=== PATIENT | female | born 1970 | race American Indian/Alaskan Native ===

== ENCOUNTER 2018-12-22 08:35 | Day surgery (SDC) | payer OTHER ==
[2018-12-20 15:39] LABS: Absolute Lymphocytes (CBC) 3.5 K/uL (0.7-4.9); Absolute Monocytes 0.9 K/uL (0.1-1.3); Basophils % 0.7 % (0-1.3); Eosinophils % 1.7 % (0-4.4); Hematocrit 41.9 % (36.0-45.0); Lymphocytes % 36.8 % (15.3-44.8); MPV 7.9 fL (7.6-11.3); Monocytes % 9.1 % (3.3-12.3); RBC Red Blood Cell Count 5.12 M/uL (3.86-4.86)
[2018-12-20 15:52] LABS: Potassium 3.9 mmol/L (3.5-5.1)
--- OUTSIDE RECORDS SUMMARY | 2018-12-22 08:38 | XMS REPORT ---
:1970 Author Organization eClinicalWorks Care Team Providers Name Role Phone Nathan, Na Provider Role Unavailable Allergies, Adverse Reactions, Alerts Substance Reaction Event Type N.K.D.A. Info Not Available Non Drug Allergy Problems Problem Type Condition Code Onset Dates Condition Status Assessment Multiple joint pain M25.50 Active Problem Abdominal mass of other site R19.09 Active Problem Allergic rhinitis J30.9 Active Problem Cough R05 Active Problem Hyperlipidemia E78.5 Active Problem History of colon resection Z90.49 Active Problem Diverticulosis of intestine without K57.90 Active bleeding, unspecified intestinal tract location Problem Obesity E66.9 Active Problem Pneumonia J18.9 Active Assessment Hyperlipidemia E78.5 Active Assessment Allergic rhinitis J30.9 Active Assessment Blood tests for routine general Z00.00 Active physical examination Assessment Diverticulosis of intestine without K57.90 Active bleeding, unspecified intestinal tract location Assessment Screening for breast cancer Z12.31 Active Assessment Family history of rheumatoid Z82.61 Active arthritis Assessment History of colon resection Z90.49 Active Assessment Abdominal mass of other site R19.09 Active Medications Medication Code Code Instructions Start End Status Dosage System Date Date Amoxicillin [facility] [place] 2[place] 14314573526 500 MG Orally Active 1 capsule every 8 hrs Lipitor [facility] [place] 2] 28044793865 20 MG Orally Active 1 tablet Once a day Flonase [facility] [place]NOTE 2] [address]-08 50 MCG/ACT Active 2 spray in Nasally Once a each day nostril Tessalon Perldominguez [facility] [place]NOTE 2] 37866779796 100 MG Orally Active 1 capsule Three times a as needed day Montelukast ND 07505622038 10 MG Orally Apr 01, Active 1 tablet Sodium Once a day 2017 in the evening Flonase ND 66365710596 50 MCG/ACT Apr 01, Active 2 spray in Nasally Once a 2018 each day nostril Results No Known Results Summary Purpose eClinicalWorks Submission
--- OUTSIDE RECORDS SUMMARY | 2018-12-22 08:38 | XMS REPORT ---
:1970 Author Organization [employer]Works Care Team Providers Name Role Phone Matt Brunilda Provider Role Unavailable Allergies, Adverse Reactions, Alerts Substance Reaction Event Type N.K.D.A. Info Not Available Non Drug Allergy Problems Problem Type Condition Code Onset Dates Condition Status Problem Cough R05 Active Problem Hyperlipidemia E78.5 Active Problem Allergic rhinitis J30.9 Active Problem Hypertension, unspecified type I10 Active Problem Adult general medical exam Z00.00 Active Problem Dizzy R42 Active Problem Carpal tunnel syndrome of left G56.02 Active wrist Problem Pneumonia J18.9 Active Problem Routine gynecological examination Z01.419 Active Problem Mixed hyperlipidemia E78.2 Active Assessment Hypertension, unspecified type I10 Active Problem Abdominal mass of other site R19.09 Active Problem Diverticulosis of intestine without K57.90 Active bleeding, unspecified intestinal tract location Assessment Dizzy R42 Active Problem History of colon resection Z90.49 Active Problem Obesity E66.9 Active Medications Medication Code Code Instructions Start End Status Dosage System Date Date Flonase [facility] 59986705575 50 MCG/ACT Apr 01, Active 2 spray in Nasally Once a 2018 each day nostril Montelukast ND 01346301874 10 MG Orally Apr 01, Active 1 tablet Sodium Once a day 2017 in the evening Walter Roberts ND 93398062853 100 MG Orally Active 1 capsule Three times a as needed day Flonase [facility] 01541289419 50 MCG/ACT Active 2 spray in Nasally Once a each day nostril Lipitor ND 02115929661 20 MG Orally Active 1 tablet Once a day Amoxicillin ND 45639906456 500 MG Orally Active 1 capsule every 8 hrs Lisinopril ND 44458113685 10 MG Orally November Active 1 tablet Once a day 2018 Crestor ND 30384203255 20 MG Orally Apr 29, Active 1 tablet Once a day 2017 Results No Known Results Summary Purpose eClinicalWorks Submission
--- OUTSIDE RECORDS SUMMARY | 2018-12-22 08:38 | XMS REPORT ---
:1970 Author Organization [employer]Works Care Team Providers Name Role Phone Nathan, Na Provider Role Unavailable Allergies No Known Allergies Problems Problem Type Condition Code Onset Dates Condition Status Problem Abdominal mass of other site R19.09 Active Problem Allergic rhinitis J30.9 Active Problem Cough R05 Active Problem Hyperlipidemia E78.5 Active Problem History of colon resection Z90.49 Active Problem Diverticulosis of intestine without K57.90 Active bleeding, unspecified intestinal tract location Problem Obesity E66.9 Active Problem Pneumonia J18.9 Active Medications No Known Medications Results No Known Results Summary Purpose eClinicalWorks Submission
--- OUTSIDE RECORDS SUMMARY | 2018-12-22 08:38 | XMS REPORT ---
:1970 Author Organization e[employer]Works Care Team Providers Name Role Phone Bella Avila Provider Role Unavailable Allergies No Known Allergies Problems Problem Type Condition Code Onset Dates Condition Status Problem Cough R05 Active Problem Hyperlipidemia E78.5 Active Problem Allergic rhinitis J30.9 Active Problem Abdominal mass of other site R19.09 Active Problem Diverticulosis of intestine without K57.90 Active bleeding, unspecified intestinal tract location Problem History of colon resection Z90.49 Active Problem Obesity E66.9 Active Problem Hypertension, unspecified type I10 Active Problem Adult general medical exam Z00.00 Active Problem Dizzy R42 Active Problem Carpal tunnel syndrome of left G56.02 Active wrist Problem Pneumonia J18.9 Active Problem Routine gynecological examination Z01.419 Active Problem Mixed hyperlipidemia E78.2 Active Medications No Known Medications Results No Known Results Summary Purpose eClinicalWorks Submission
--- OUTSIDE RECORDS SUMMARY | 2018-12-22 08:38 | XMS REPORT ---
:1970 Author Organization eClinicalWorks Care Team Providers Name Role Phone Nathan, Na Provider Role Unavailable Allergies, Adverse Reactions, Alerts Substance Reaction Event Type N.K.D.A. Info Not Available Non Drug Allergy Problems Problem Type Condition Code Onset Dates Condition Status Problem Allergic rhinitis J30.9 Active Problem Abdominal mass of other site R19.09 Active Problem Hyperlipidemia E78.5 Active Problem Carpal tunnel syndrome of left G56.02 Active wrist Problem Adult general medical exam Z00.00 Active Problem Mixed hyperlipidemia E78.2 Active Problem History of colon resection Z90.49 Active Problem Diverticulosis of intestine without K57.90 Active bleeding, unspecified intestinal tract location Problem Routine gynecological examination Z01.419 Active Problem Pneumonia J18.9 Active Assessment Carpal tunnel syndrome of left G56.02 Active wrist Assessment Mixed hyperlipidemia E78.2 Active Assessment Adult general medical exam Z00.00 Active Assessment Routine gynecological examination Z01.419 Active Problem Obesity E66.9 Active Assessment Multiple joint pain M25.50 Active Problem Cough R05 Active Medications Medication Code Code Instructions Start End Status Dosage System Date Date Amoxicillin ND 25989802183 500 MG Orally Active 1 capsule every 8 hrs Crestor ND 18592546789 20 MG Orally Apr 29, Active 1 tablet Once a day 2017 Montelukast ND 29714283494 10 MG Orally Apr 01, Active 1 tablet Sodium Once a day 2018 in the evening Tessalon Perles ND 39792058150 100 MG Orally Active 1 capsule Three times a as needed day Flonase ND 41169486793 50 MCG/ACT Active 2 spray in Nasally Once a each day nostril Lipitor ND 48117446327 20 MG Orally Active 1 tablet Once a day Flonase ND 89701071710 50 MCG/ACT Apr 01, Active 2 spray in Nasally Once a 2018 each day nostril Results No Known Results Summary Purpose eClinicalWorks Submission
--- OUTSIDE RECORDS SUMMARY | 2018-12-22 08:38 | XMS REPORT ---
:1970 Author Organization eClinicalWorks Care Team Providers Name Role Phone Nathan, Na Provider Role Unavailable Allergies No Known Allergies Problems Problem Type Condition Code Onset Dates Condition Status Problem Allergic rhinitis J30.9 Active Problem Abdominal mass of other site R19.09 Active Problem Hyperlipidemia E78.5 Active Problem Obesity E66.9 Active Problem Cough R05 Active Problem Carpal tunnel syndrome of left G56.02 Active wrist Problem Adult general medical exam Z00.00 Active Problem Mixed hyperlipidemia E78.2 Active Problem History of colon resection Z90.49 Active Problem Diverticulosis of intestine without K57.90 Active bleeding, unspecified intestinal tract location Problem Routine gynecological examination Z01.419 Active Problem Pneumonia J18.9 Active Medications No Known Medications Results No Known Results Summary Purpose eClinicalWorks Submission
--- OUTSIDE RECORDS SUMMARY | 2018-12-22 08:38 | XMS REPORT ---
:1970 [facility] Address [address] [place] [address] Dr. Escobar [address] [place] [address] Care Team Providers Name Role Phone Unavailable Unavailable Unavailable Problems This patient has no known problems. Allergies, Adverse Reactions, Alerts This patient has no known allergies or adverse reactions. Medications This patient has no known medications.
--- OUTSIDE RECORDS SUMMARY | 2018-12-22 08:38 | XMS REPORT ---
:1970 Author Organization eClinicalWorks Care Team Providers Name Role Phone Black Partida Provider Role Unavailable Allergies, Adverse Reactions, Alerts Substance Reaction Event Type N.K.D.A. Info Not Available Non Drug Allergy Problems Problem Type Condition Code Onset Dates Condition Status Problem Hyperlipidemia E78.5 Active Problem Carpal tunnel syndrome of left G56.02 Active wrist Problem Pneumonia J18.9 Active Problem CKD (chronic kidney disease), stage N18.3 Active III Problem Hypertension, unspecified type I10 Active Problem Diverticulitis K57.92 Active Problem Routine gynecological examination Z01.419 Active Problem Mixed hyperlipidemia E78.2 Active Problem Dizzy R42 Active Problem Adult general medical exam Z00.00 Active Assessment Ventral hernia without obstruction K43.9 Active or gangrene Problem History of colon resection Z90.49 Active Problem Obesity E66.9 Active Problem Abdominal mass of other site R19.09 Active Problem Cough R05 Active Problem Diverticulosis of intestine without K57.90 Active bleeding, unspecified intestinal tract location Problem Allergic rhinitis J30.9 Active Medications Medication Code Code Instructions Start End Status Dosage System Date Date Walter Roberts [facility] 36740766115 100 MG Orally Active 1 capsule Three times a as needed day Amoxicillin [facility] 22565087489 500 MG Orally Active 1 capsule every [address] [facility] 93244772628 20 MG Orally Active 1 tablet Once a day Flonase [facility] 03649937517 50 MCG/ACT Active 2 spray in Nasally Once a each day nostril Lisinopril ND 17851451402 10 MG Orally November Active 1 tablet Once a day [address] [facility] 89594123202 20 MG Orally Apr 29, Active 1 tablet Once a day [address] [facility] 22586680341 50 MCG/ACT Active 2 spray in Nasally Once a each day nostril Cipro [facility] 57505120603 500 MG Orally Active 1 tablet every [address] [facility] 36942764946 10 MG Orally Active 1 tablet Sodium Once a day in the evening Metronidazole [facility] 22893132287 500 MG Orally Active 1 tablet Three times a day Zofran [facility] 82622674216 8 MG Orally Active 1 tablet Once a day as needed Meclizine HCl [facility] [address]-33 25 MG Orally Active as directed Results No Known Results Summary Purpose eClinicalWorks Submission
[2018-12-22] MEDS ORDERED: Ringers Lactate 1,000 ML IV ONE ×2 (09:05→12:25)
[2018-12-22] MEDS ORDERED: CEFAZOLIN/SWI 2gm 2 GM/20 ML SYR ONE (09:06)
[2018-12-22] MEDS ORDERED: MIDAZOLAM HCL 2 MG/2 ML INJ ONE ×2 (09:39→13:10)
[2018-12-22] MEDS ORDERED: FENTANYL CITR 100 MCG/2 ML ONE (09:39)
[2018-12-22] MEDS ORDERED: PROPOFOL 200 MG/20 ML VIAL IV ONE (09:39)
[2018-12-22] MEDS ORDERED: LIDOCAINE 2% MPF 5 ML VIAL ONE (09:40)
[2018-12-22] MEDS ORDERED: ROCURONIUM 50 MG/5 ML VIAL IV ONE ×2 (09:40→11:23)
[2018-12-22] MEDS ORDERED: ONDANSETRON 4 MG/2 ML VIAL ONE ×2 (09:41→13:28)
[2018-12-22] MEDS ORDERED: BUPIVACA 0.25%/EPI 0.0005% MDV 50 ML VIAL ONE (10:05)
[2018-12-22] MEDS ORDERED: EPHEDRINE SULF 50 MG/ML VIAL ONE (10:39)
[2018-12-22] MEDS ORDERED: DEXAMETHASONE 10 MG/ML VIAL ONE (10:52)
--- NOTE | 2018-12-22 11:40 | P.OP ---
Preoperative diagnosis: Ventral Abdominal Wall Hernias Postoperative diagnosis: Ventral Abdominal Wall Hernias Primary procedure: Laparoscopic Ventral Hernia Repair with Mesh Secondary procedure: Laparoscopic Adhesiolysis Anesthesia: GETA + Local Estimated blood loss: <10cc Specimen: None Findings: Colon contained within hernia, multiple hernias of midline Complications: None Implants: Bard Ventralite ST mesh with echo position [id number] Transferred to: Recovery Room Condition: Good
[2018-12-22] MEDS ORDERED: NEOSTIGMINE 1 MG/ML -10 ML VIAL ONE (11:45)
[2018-12-22] MEDS ORDERED: GLYCOPYRROLATE 0.2 MG/ML SYR ONE (11:45)
[2018-12-22] MEDS: HYDROMORPHONE HCL 2 MG/ML inj ONE ×4 (11:51→12:30)
[2018-12-22] MEDS: HYDROMORPHONE HCL 1 MG/ML INJ ONE ×2 (12:40→12:50)
[2018-12-22] MEDS: MEPERIDINE HCL 50 MG/ML AMP ONE ×2 (13:30→13:40)
[2018-12-22] MEDS ORDERED: METOCLOPRAMIDE 10 MG/2mL INJ ONE (14:22)
[2018-12-22] MEDS: HYDROCODONE/APAP 7.5/325 MG TAB ONE ×2 (15:32→15:56)
[2018-12-22 17:16] VITALS: BP 119/72; TEMP 98.3; O2SAT 95
--- NOTE | 2018-12-22 20:57 | OP ---
Date of Procedure: 12/22/2018 Surgeon: Black Partida MD, Preoperative Diagnosis: Ventral abdominal wall hernias. Postoperative Diagnosis: Ventral abdominal wall hernias. Procedures Performed: 1.Laparoscopic ventral hernia repair with mesh. 2.Laparoscopic adhesiolysis. Anesthesia: General endotracheal plus local with 0.25% Marcaine. Estimated Blood Loss: 10 cc. Specimen: None. Findings: Contained within the hernia, multiple hernias of the midline. Complications: None. Implants: Bard Ventralight ST mesh with Echo positioning system 15 cm x 20 cm size. Disposition: Transferred to recovery room in good condition. Procedure In Detail: After informed consent was obtained, the patient was brought to the operating r oom, prepped and draped in the usual sterile fashion. After adequate anesthesia was achieved, the ar ea of the right upper quadrant was anesthetized with 0.25% Marcaine, sharply incised. A 5 mm 0-degre e optical trocar was introduced in the abdomen without evidence of complication. Insufflation was ob tained to 15 mmHg at this time. There was no injury to vital structures upon entry into the abdomen. Inspection showed that there was a large portion of the transverse colon in the hernia defect along with significant amount of the omentum stuck to the midline. Additionally, there were multiple adhe sions to the midline as well from various portions of the mesentery of the small bowel as well as ome ntum, but predominantly omentum. Additional trocar site was chosen in the left upper quadrant. This was similarly anesthetized, sharply incised, and a 12 mm trocar was introduced into the abdomen with out evidence of complication. Two additional trocars were placed in the left mid and lower quadrants , these were both 5 mm trocars placed under direct visualization without evidence of complication. T he patient was positioned slightly head down. Graspers and a LigaSure device were used to bluntly di ssect down the adipose tissue from the abdominal wall using both blunt and sharp dissection. In mera tion, the LigaSure device, careful dissection allowed for mobilization of the colon off the hernia de fect from the midline and the colon was returned to the normal anatomic position. We performed lapar oscopic adhesiolysis. After this was performed, the abdominal wall was completely swept clear of all adipose tissue, and there was a small segment of small bowel mesentery, which was stuck to the anter ior bowel wall. This was easily freed down, leaving a clean cleavage plane. The falciform ligament was taken down superiorly for approximately 4-1/2 cm. The mesh was sized appropriately, and a Bard V entralight ST mesh was brought into the lateral 12 mm port. The 15 x 20 mm cm size was found to be p erfect with 5 cm of underlay circumferentially. A separate stab incision was made through the midlin e. The deployment balloon device was deployed at this time and the mesh was positioned appropriately . The SorbaFix fixation system tacks were placed circumferentially around the single crown and the b alloon deployment system was removed through the lateral port and found to be intact. The remainder of the tacks were placed circumferentially in a double crown type fashion placing approximately 60 ab sorbable fixation devices. Good hemostasis was achieved without any additional hemostatic maneuvers and the mesh was found to be in good anatomic position. The abdomen was inspected. Proper hemostasi s was achieved at this time. The 12 mm trocar was then removed. The 12 mm trocar port was closed us ing a Cornelius-Dora suture passer and 0 Vicryl in interrupted fashion with good approximation of ti ssues. The remaining trocars were then inspected and the abdomen completely desufflated under direct visualization without evidence of complication. All trocars removed. All skin incisions were copio usly irrigated and closed with a 4-0 Monocryl in a running fashion. Dermabond placed over the top. The patient tolerated the procedure without evidence of complication, transferred to the PACU in good condition. All counts were correct at the end of the c ase. SADA/VELMA Voice ID: [id number] Report ID: [id number]
== END 2018-12-22 16:51 | disposition home or self-care (01) ==
LOC: OR 08:35
PROVIDERS: ATTEND Surgery
PROC: 0WUF4JZ Supplement Abdominal Wall with Synthetic Substitute, Percutaneous Endoscopic Approach (ICD-10-PCS; principal; 2018-12-22 10:15)
DX: K43.9 Ventral hernia without obstruction or gangrene (principal); K66.0 Peritoneal adhesions (postprocedural) (postinfection); E78.5 Hyperlipidemia, unspecified; E66.9 Obesity, unspecified; Z79.899 Other long term (current) drug therapy; Z68.41 Body mass index [BMI] 40.0-44.9, adult
CPT/HCPCS: 36415; 80051; 82565; 84520; 85025; J0690; J1100; J1170; J2175; J2250; J2405; J2704; J2710; J2765; J3010

== ENCOUNTER 2019-02-01 13:56 | Emergency (ER) | payer OTHER ==
--- OUTSIDE RECORDS SUMMARY | 2019-02-01 13:58 | XMS REPORT ---
[...] End Status Dosage System Date Date Amoxicillin [facility] 48422779006 500 MG Orally Active 1 capsule every 8 hrs Lipitor [facility] 46436191822 20 MG Orally Active 1 tablet Once a day Flonase [facility] [address]-23 50 MCG/ACT Active 2 spray in Nasally Once a each day nostril Tessalon Perldominguez [facility] 00984812055 100 MG Orally Active 1 capsule Three times a as needed day Montelukast ND 84221972895 10 MG Orally Apr 01, Active 1 tablet Sodium Once a day 2017 in the evening Flonase ND 06993813489 50 MCG/ACT Apr 01, Active 2 spray in Nasally Once a 2018 each day nostril Results No Known Results Summary Purpose eClinicalWorks Submission
--- OUTSIDE RECORDS SUMMARY | 2019-02-01 13:59 | XMS REPORT ---
[...] Status Dosage System Date Date Walter Roberts [facility] 64111361478 100 MG Orally Active 1 capsule Three times a as needed day Amoxicillin [facility] 71392597715 500 MG Orally Active 1 capsule every 8 hrs Lipitor [facility] 77686246935 20 MG Orally Active 1 tablet Once a day Flonase [facility] 54170213775 50 MCG/ACT Active 2 spray in Nasally Once a each day nostril Lisinopril ND 48418848465 10 MG Orally November Active 1 tablet Once a day 2018 Crestor [facility] 74720650643 20 MG Orally Apr 29, Active 1 tablet Once a day 2017 Flonase [facility] 35335933792 50 MCG/ACT Active 2 spray in Nasally Once a each day nostril Cipro [facility] 55120721069 500 MG Orally Active 1 tablet every 12 hrs Montelukast [facility] 00920573895 10 MG Orally Active 1 tablet Sodium Once a day in the evening Metronidazole [facility] 70363129647 500 MG Orally Active 1 tablet Three times a day Zofran [facility] 68853431199 8 MG Orally Active 1 tablet Once a day as needed Meclizine HCl [facility] [address]-80 25 MG Orally Active as directed Results No Known Results Summary Purpose eClinicalWorks Submission
--- OUTSIDE RECORDS SUMMARY | 2019-02-01 13:59 | XMS REPORT ---
[...] Status Dosage System Date Date Amoxicillin ND 69993228183 500 MG Orally Active 1 capsule every 8 hrs Crestor ND 86422599094 20 MG Orally Apr 29, Active 1 tablet Once a day 2017 Montelukast ND 17615366519 10 MG Orally Apr 01, Active 1 tablet Sodium Once a day 2018 in the evening Tessalon Perles ND 68619588895 100 MG Orally Active 1 capsule Three times a as needed day Flonase ND 26921526053 50 MCG/ACT Active 2 spray in Nasally Once a each day nostril Lipitor ND 43411470811 20 MG Orally Active 1 tablet Once a day Flonase ND 27950239363 50 MCG/ACT Apr 01, Active 2 spray in Nasally Once a 2018 each day nostril Results No Known Results Summary Purpose eClinicalWorks Submission
--- OUTSIDE RECORDS SUMMARY | 2019-02-01 13:59 | XMS REPORT ---
[...] End Status Dosage System Date Date Flonase [facility] 38449881737 50 MCG/ACT Apr 01, Active 2 spray in Nasally Once a 2018 each day nostril Montelukast ND 03544522031 10 MG Orally Apr 01, Active 1 tablet Sodium Once a day 2017 in the evening Walter Roberts ND 92560786015 100 MG Orally Active 1 capsule Three times a as needed day Flonase [facility] 39260887076 50 MCG/ACT Active 2 spray in Nasally Once a each day nostril Lipitor ND 03816114477 20 MG Orally Active 1 tablet Once a day Amoxicillin ND 40424236656 500 MG Orally Active 1 capsule every 8 hrs Lisinopril ND 37460710815 10 MG Orally November Active 1 tablet Once a day 2018 Crestor ND 22511550667 20 MG Orally Apr 29, Active 1 tablet Once a day 2017 Results No Known Results Summary Purpose eClinicalWorks Submission
--- OUTSIDE RECORDS SUMMARY | 2019-02-01 13:59 | XMS REPORT ---
:1970 [facility] Address [address] [place] [address] Dr. Escobar [address] [place] [address] Care Team Providers Name Role Phone Unavailable Unavailable Unavailable Problems This patient has no known problems. Allergies, Adverse Reactions, Alerts This patient has no known allergies or adverse reactions. Medications This patient has no known medications.
--- OUTSIDE RECORDS SUMMARY | 2019-02-01 14:00 | XMS REPORT ---
:1970 Author Organization eClinicalWorks Care Team Providers Name Role Phone Black Partida Provider Role Unavailable Allergies, Adverse Reactions, Alerts Substance Reaction Event Type N.K.D.A. Info Not Available Non Drug Allergy Problems Problem Type Condition Code Onset Dates Condition Status Problem Pneumonia J18.9 Active Problem Mixed hyperlipidemia E78.2 Active Problem Carpal tunnel syndrome of left G56.02 Active wrist Problem Ventral hernia without obstruction K43.9 Active or gangrene Problem CKD (chronic kidney disease), stage N18.3 Active III Problem Diverticulitis K57.92 Active Problem Adult general medical exam Z00.00 Active Problem Routine gynecological examination Z01.419 Active Problem Hypertension, unspecified type I10 Active Problem Dizzy R42 Active Problem Abdominal mass of other site R19.09 Active Assessment Follow up Z09 Active Problem Obesity E66.9 Active Problem Cough R05 Active Problem Diverticulosis of intestine without K57.90 Active bleeding, unspecified intestinal tract location Problem Allergic rhinitis J30.9 Active Problem History of colon resection Z90.49 Active Problem Hyperlipidemia E78.5 Active Medications Medication Code Code Instructions Start End Status Dosage System Date Date Tylenol # 3 NDC 0 300/30mg PO January 05January Active one to two every 6 hrs 2019 09, tabs as 2019 needed Tessalon Perles [facility] 83625611064 100 MG Orally Active 1 capsule Three times a as needed day Montelukast [facility] 72752843104 10 MG Orally Active 1 tablet in Sodium Once a day the evening Flonase [facility] 70151294371 50 MCG/ACT Active 2 spray in Nasally Once a each day nostril Zofran [facility] 13296342621 8 MG Orally Active 1 tablet as Once a day needed Flonase [facility] 20113321949 50 MCG/ACT Active 2 spray in Nasally Once a each day nostril Lipitor ND 66358720552 20 MG Orally Active 1 tablet Once a day Cipro [facility] 64590869206 500 MG Orally Active 1 tablet every 12 hrs Metronidazole ND 10777117850 500 MG Orally Active 1 tablet Three times a day Lisinopril [facility] 57177393921 10 MG Orally November Active 1 tablet Once a day 2018 Crestor [facility] 56490389418 20 MG Orally Apr 29, Active 1 tablet Once a day 2017 Meclizine HCl [facility] 42468869066 25 MG Orally Active as directed Amoxicillin [facility] 73190312630 500 MG Orally Active 1 capsule every 8 hrs Results No Known Results Summary Purpose eClinicalWorks Submission
[2019-02-01] MEDS ORDERED: MECLIZINE HCL 12.5 MG TAB ONE (15:15)
--- NOTE | 2019-02-01 16:17 | EDPHYS ---
Physician Documentation [facility] Name: Tete Hinkle Age: 48 yrs Sex: Female : 1970 Arrival Date: 02/01/2019 Time: 13:58 Bed 14 Private MD: Shila Nathan ED Physician Arturo Santiago HPI: 02/01 15:57 This 48 yrs old Female presents to ER via Ambulatory with complaints of jr8 Dizziness. 15:57 The patient presents with vertigo. Onset: The symptoms/episode began/occurred jr8 gradually, 2 week(s) ago. Context: occurred at an unknown location, occurred while the patient was standing, walking, just prior to the episode the patient experienced no apparent symptoms. Modifying factors: The symptoms are alleviated by nothing, the symptoms are aggravated by movement of head, standing up, changing position. Associated signs and symptoms: The patient has no apparent associated signs or symptoms. Severity of symptoms: At their worst the symptoms were mild in the emergency department the symptoms are unchanged. Patient's baseline: Neuro: alert and fully oriented, Motor: no deficits, Ambulation: walks without assistance, Speech: normal. The patient has experienced similar episodes in the past, a few times. The patient has not recently seen a physician. Patient stated that she has had this two other times. Once was only about 2 months ago. Stated that she went to [facility] at that time and was diagnosed with Vertigo. Having similar symptoms again . 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 - Social history:: Smoking status: Patient/guardian denies using tobacco. - Ebola Screening: : No symptoms or risks identified at this time. ROS: 16:15 Eyes: Negative for injury, pain, redness, and discharge, ENT: Negative for injury, jr8 pain, and discharge, Neck: Negative for injury, pain, and swelling, Cardiovascular: Negative for chest pain, palpitations, and edema, Respiratory: Negative for shortness of breath, cough, wheezing, and pleuritic chest pain, Abdomen/GI: Negative for abdominal pain, nausea, vomiting, diarrhea, and constipation, Back: Negative for injury and pain, MS/Extremity: Negative for injury and deformity, Skin: Negative for injury, rash, and discoloration. 16:15 Neuro: Positive for dizziness. Exam: 16:15 Eyes: Pupils equal round and reactive to light, extra-ocular motions intact. Lids and jr8 lashes normal. Conjunctiva and sclera are non-icteric and not injected. Cornea within normal limits. Periorbital areas with no swelling, redness, or edema. ENT: Nares patent. No nasal discharge, no septal abnormalities noted. Tympanic membranes are normal and external auditory canals are clear. Oropharynx with no redness, swelling, or masses, exudates, or evidence of obstruction, uvula midline. Mucous membranes moist. Neck: Trachea midline, no thyromegaly or masses palpated, and no cervical lymphadenopathy. Supple, full range of motion without nuchal rigidity, or vertebral point tenderness. No Meningismus. Cardiovascular: Regular rate and rhythm with a normal S1 and S2. No gallops, murmurs, or rubs. Normal PMI, no JVD. No pulse deficits. Respiratory: Lungs have equal breath sounds bilaterally, clear to auscultation and percussion. No rales, rhonchi or wheezes noted. No increased work of breathing, no retractions or nasal flaring. Abdomen/GI: Soft, non-tender, with normal bowel sounds. No distension or tympany. No guarding or rebound. No evidence of tenderness throughout. Back: No spinal tenderness. No costovertebral tenderness. Full range of motion. Skin: Warm, dry with normal turgor. Normal color with no rashes, no lesions, and no evidence of cellulitis. MS/ Extremity: Pulses equal, no cyanosis. Neurovascular intact. Full, normal range of motion. Neuro: Awake and alert, GCS 15, oriented to person, place, time, and situation. Cranial nerves II-XII grossly intact. Motor strength 5/5 in all extremities. Sensory grossly intact. Cerebellar exam normal. Normal gait. Vital Signs: 14:14 BP 164 / 82; Pulse 97; Resp 16; Temp 98.4; Pulse Ox 95% on R/A; Weight 104.33 kg; aj Height 5 ft. 3 in. (160.02 cm); 14:14 Body Mass Index 40.74 (104.33 kg, 160.02 cm) NIH Stroke Scale Scores: 16:15 NIHSS Score: 0 jr8 MDM: 14:36 Patient medically screened. jr8 16:15 Data reviewed: vital signs, nurses notes. Data interpreted: Pulse oximetry: on room air jr8 is 95 %. Interpretation: normal. Counseling: I had a detailed discussion with the patient and/or guardian regarding: the historical points, exam findings, and any diagnostic results supporting the discharge/admit diagnosis, the need for outpatient follow up, a family practitioner, to return to the emergency department if symptoms worsen or persist or if there are any questions or concerns that arise at home. Response to treatment: the patient's symptoms have mildly improved after treatment. Administered Medications: 15:15 Drug: Meclizine 25 mg Route: PO; ph 16:25 Follow up: Response: No adverse reaction ph Disposition: 17:14 Co-signature as Attending Physician, Arturo Santiago MD I agree with the assessment and kdr plan of care. Disposition: 02/01/19 16:16 Discharged to Home. Impression: Vertigo. - Condition is Stable. - Discharge Instructions: Vertigo. - Prescriptions for Meclizine 25 mg Oral Tablet - take 1 tablet by ORAL route every 8 hours As needed; 30 tablet. Valium 2 mg Oral Tablet - take 1 tablet by ORAL route every 8 hours As needed; 20 tablet. - Work release form, Medication Reconciliation Form, Thank You Letter, Antibiotic Education, Prescription Opioid Use form. - Follow up: Shila Nathan MD; When: 2 - 3 days; Reason: Recheck today's complaints, Continuance of care, Re-evaluation by your physician. - Problem is new. - Symptoms have improved. NIH Stroke Scale - NIH Stroke Score Date: 02/01/2019 Time: 16:15 Total Score = 0 1a. Level of Consciousness (LOC) - 0(Alert) 1b. Level of Consciousness (LOC) (Year \T\ Age) - 0(Both) 1c. LOC Commands (Open \T\ Closes Eyes/Outcomes Specialist) - 0(Both) 2. Best Gaze (Lateral Gaze Paresis) - 0(Normal) 3. Visual Field Loss - 0(No visual loss) 4. Facial Palsy - 0(Normal) 5a. Left Arm: Motor (10-second hold) - 0(No drift) 5b. Right Arm: Motor (10-second hold) - 0(No drift) 6a. Left Leg: Motor (5-second hold - always test supine) - 0(No drift) 6b. Right Leg: Motor (5-second hold - always test supine) - 0(No drift) 7. Limb Ataxia (finger/nose \T\ heel/sawyer - test with eyes open) - 0(Absent) 8. Sensory Loss (pinprick arms/legs/face) - 0(Normal) 9. Best Language: Aphasia (description/naming/reading) - 0(No aphasia) 10. Dysarthria (speech clarity - read or repeat words) - 0(Normal) 11. Extinction and Inattention (visual/tactile/auditory/spatial/personal) - 0(No abnormality) Initials: jr8 Signatures: Jesusita Gayle RN RN aj Arturo Santiago MD MD kdr Roszak, Josh, PA PA jr8 Tammi Javed RN RN ph Corrections: (The following items were deleted from the chart) 16:44 16:16 02/01/2019 16:16 Discharged to Home. Impression: Vertigo. Condition is ph Stable. Forms are Medication Reconciliation Form, Thank You Letter, Antibiotic Education, Prescription Opioid Use. Follow up: Shila Nathan; When: 2 - 3 days; Reason: Recheck today's complaints, Continuance of care, Re-evaluation by your physician. Problem is new. Symptoms have improved. jr8
--- NOTE | 2019-02-01 16:17 | ER ---
Nurse's Notes [facility] Name: Tete Hinkle Age: 48 yrs Sex: Female : 1970 Arrival Date: 02/01/2019 Time: 13:58 Bed 14 Private MD: Shila Nathan Diagnosis: Vertigo Presentation: 02/01 14:13 Presenting complaint: Patient states: Reports dizziness when moving head from side to aj side and up and down for 3 weeks. Reports her PCP has no appointments available. Care prior to arrival: None. 14:13 Acuity: DEANDRA 4 aj 15:54 Transition of care: patient was not received from another setting of care. Onset of ph symptoms was February 01, 2019. Risk Assessment: Do you want to hurt yourself or someone else? Patient reports no desire to harm self or others. Initial Sepsis Screen: Does the patient meet any 2 criteria? No. Patient's initial sepsis screen is negative. Does the patient have a suspected source of infection? No. Patient's initial sepsis screen is negative. 15:54 Method Of Arrival: Ambulatory ph Triage Assessment: 14:14 General: Appears in no apparent distress. comfortable, Behavior is calm, cooperative, aj appropriate for age. Pain: Denies pain. Neuro: Gait is steady, Reports dizziness. 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 - Social history:: Smoking status: Patient/guardian denies using tobacco. - Ebola Screening: : No symptoms or risks identified at this time. Screenin:15 Patient has been NPO before screening. The patient is alert, able to follow commands. ph The patient does not exhibit slurred or garbled speech The patient is not exhibiting difficulty speaking. The patient does not exhibit difficulty understanding words. The patient is able to swallow own secretions with no drooling or need for suction. Patient tolerated one teaspoon of water. No drooling, immediate coughing, gurgling, or clearing of the throat was noted. The patient tolerated 90mL of water. No drooling, immediate coughing, gurgling, or clearing of the throat was noted. The patient passed the bedside swallow screening. Oral medications may be given as ordered. Contact Physician for further diet orders. 15:53 Abuse screen: Denies threats or abuse. Denies injuries from another. Nutritional ph screening: No deficits noted. Tuberculosis screening: No symptoms or risk factors identified. Fall Risk None identified. Assessment: 15:00 General: Appears in no apparent distress. comfortable, well groomed, Behavior is calm, ph cooperative, appropriate for age, Denies fever, feeling ill. Pain: Denies pain. Neuro: Level of Consciousness is awake, alert, obeys commands, Oriented to person, place, time, situation, Heel Boom Operator are equal bilaterally Moves all extremities. Full function Speech is normal, Facial symmetry appears normal, Facial symmetry: tongue is midline, Pupils are PERRLA, Reports dizziness, x 3 weeks Denies weakness blurred vision difficulty swallowing, headache. Cardiovascular: Reports lightheadedness, Denies nausea, Capillary refill < 3 seconds in bilateral fingers Patient's skin is warm and dry. Respiratory: Airway is patent Respiratory effort is even, unlabored, Respiratory pattern is regular, symmetrical. GI: No signs and/or symptoms were reported involving the gastrointestinal system. Derm: Skin is intact, is healthy with good turgor, Skin is pink, warm \T\ dry. Musculoskeletal: Circulation, motion, and sensation intact. Range of motion: intact in all extremities. 16:30 Reassessment: Patient appears in no apparent distress at this time. Patient and/or ph family updated on plan of care and expected duration. Pain level reassessed. Patient is alert, oriented x 3, equal unlabored respirations, skin warm/dry/pink. Patient states symptoms have improved. Vital Signs: 14:14 BP 164 / 82; Pulse 97; Resp 16; Temp 98.4; Pulse Ox 95% on R/A; Weight 104.33 kg; aj Height 5 ft. 3 in. (160.02 cm); 14:14 Body Mass Index 40.74 (104.33 kg, 160.02 cm) aj NIH Stroke Scale Scores: 16:15 NIHSS Score: 0 jr8 ED Course: 13:58 Patient arrived in ED. rg4 13:59 Shila Nathan MD is Private Physician. rg4 14:14 Triage completed. aj 14:14 Arm band placed on right wrist. Patient placed in an exam room. aj 14:17 Tammi Javed RN is Primary Nurse. ph 14:19 Del Garza PA is PHCP. jr8 14:19 Arturo Santiago MD is Attending Physician. jr8 15:54 Patient has correct armband on for positive identification. Placed in gown. Bed in low ph position. Call light in reach. Side rails up X 1. Pulse ox on. NIBP on. Door closed. Noise minimized. Warm blanket given. Head of bed elevated. 15:55 No provider procedures requiring assistance completed. ph 16:16 Shila Nathan MD is Referral Physician. jr8 16:43 Patient did not have IV access during this emergency room visit. ph Administered Medications: 15:15 Drug: Meclizine 25 mg Route: PO; ph 16:25 Follow up: Response: No adverse reaction ph Outcome: 16:16 Discharge ordered by . jr8 16:42 Discharged to home ambulatory. ph 16:42 Condition: good 16:42 Discharge instructions given to patient, Instructed on discharge instructions, follow up and referral plans. medication usage, Demonstrated understanding of instructions, follow-up care, medications, Prescriptions given X 2. 16:44 Patient left the ED. ph NIH Stroke Scale - NIH Stroke Score Date: 02/01/2019 Time: 16:15 Total Score = 0 1a. Level of Consciousness (LOC) - 0(Alert) 1b. Level of Consciousness (LOC) (Year \T\ Age) - 0(Both) 1c. LOC Commands (Open \T\ Closes Eyes/Supply Analyst) - 0(Both) 2. Best Gaze (Lateral Gaze Paresis) - 0(Normal) 3. Visual Field Loss - 0(No visual loss) 4. Facial Palsy - 0(Normal) 5a. Left Arm: Motor (10-second hold) - 0(No drift) 5b. Right Arm: Motor (10-second hold) - 0(No drift) 6a. Left Leg: Motor (5-second hold - always test supine) - 0(No drift) 6b. Right Leg: Motor (5-second hold - always test supine) - 0(No drift) 7. Limb Ataxia (finger/nose \T\ heel/sawyer - test with eyes open) - 0(Absent) 8. Sensory Loss (pinprick arms/legs/face) - 0(Normal) 9. Best Language: Aphasia (description/naming/reading) - 0(No aphasia) 10. Dysarthria (speech clarity - read or repeat words) - 0(Normal) 11. Extinction and Inattention (visual/tactile/auditory/spatial/personal) - 0(No abnormality) Initials: jrLala Signatures: Jesusita Gayle RN RN Del Jeter PA PA jr8 Tammi Javed RN RN Iglesia, Roya rg4
[2019-02-01 17:19] VITALS: BP 164/82; TEMP 98.4; O2SAT 95
== END 2019-02-01 16:44 | disposition home or self-care (01) ==
LOC: ER 13:56
DX: R42 Dizziness and giddiness (principal)
CPT/HCPCS: 99283

== ENCOUNTER 2019-11-20 00:04 | Emergency (ER) | payer OTHER ==
--- OUTSIDE RECORDS SUMMARY | 2019-11-20 00:06 | XMS REPORT ---
:1970 Author Organization [facility] t Address [address] [place] [address] Dr. Escobar [address] [place] [id number] Care Team Providers Name Role Phone Unavailable Unavailable Unavailable Problems This patient has no known problems. Allergies, Adverse Reactions, Alerts This patient has no known allergies or adverse reactions. Medications This patient has no known medications.
--- OUTSIDE RECORDS SUMMARY | 2019-11-20 00:07 | XMS REPORT ---
:1970 Author Organization [employer] Care Team Providers Name Role Phone Nathan, Na Provider Role Unavailable Allergies, Adverse Reactions, Alerts Substance Reaction Event Type N.K.D.A. Info Not Available Non Drug Allergy Problems Problem Type Condition Code Onset Dates Condition Statu s Assessment Vitamin D deficiency E55.9 Active Assessment Elevated alkaline phosphatase level R74.8 Active Assessment Stressful life event affecting Z63.79 Active family Assessment Anxiety F41.9 Active Assessment Allergic rhinitis J30.9 Active Assessment Familial hypercholesterolemia E78.01 Active Problem Adult general medical exam Z00.00 A ctive Assessment Hypertension, unspecified type I10 Active Problem Dizzy R42 Active Problem Hypertension, unspecified type I10 Active Problem Diverticulitis K57.92 Active Problem CKD (chronic kidney disease), stage N18.3 Active III Problem Familial hypercholesterolemia E78.01 Active Problem Stressful life event affecting Z63.79 Active family Problem History of colon resection Z90.49 A ctive Problem Diverticulosis of intestine without K57.90 Active bleeding, unspecified intestinal tract location Problem Vitamin D deficiency E55.9 Active Problem Abdominal mass of other site R19.09 Active Problem Impacted cerumen, right ear H61.21 Active Problem Ventral hernia without obstruction K43.9 Active or gangrene Problem Anxiety F41.9 Active Problem Benign paroxysmal positional H81.11 Active vertigo of right ear Problem Allergic rhinitis J30.9 Active Problem Hyperlipidemia E78.5 Active Problem Obesity E66.9 Active Problem Cough R05 Active Problem Carpal tunnel syndrome of left G56.02 Active wrist Problem Mixed hyperlipidemia E78.2 Active Problem Pneumonia J18.9 Active Problem Routine gynecological examination Z01.419 Active Medications Medication Code Code Instructions Start End Status Dosage System Date Date Zofran [facility] 78751981108 8 MG Orally Active 1 tablet as Once a day needed Metronidazole ND 79419356306 500 MG Orally Active 1 tablet Three times a day Amoxicillin ND 81775874283 500 MG Orally Active 1 capsule every 8 hrs Meclizine HCl [facility] 39064783873 25 MG Orally Active a s directed Once a day Metoprolol ND 06253354640 100 MG Orally Active 1 t ablet Tartrate Twice a day with food Crestor ND 07389941478 20 MG Orally Mar 31, Active 1 table t Once a day 2018 Losartan ND 47211585326 50 MG Orally Mar 31, Active 1 tabl et Potassium Once a day 2018 Flonase ND 44752492368 50 MCG/ACT Active 2 spray i n Nasally Once a each day nostril Cetirizine HCl ND 05001622173 10 MG Orally Active 1 tablet Once a day Cipro ND 04860370157 500 MG Orally Active 1 tabl et every 12 hrs Crestor ND 85416544002 20 MG Orally Apr 29, Active 1 tabl et Once a day 2017 Tessalon Perles ND 38896031001 100 MG Orally Active 1 capsule Three times a as needed day Benzonatate ND 59781551943 100 MG Orally March 01Mar 31, Active 1 capsule two times a day 2018 2018 as neede d prn cough Flonase ND 78172934826 50 MCG/ACT Active 2 spray i n Nasally Once a each day nostril Montelukast ND 10151395640 10 MG Orally Active 1 t ablet in Sodium Once a day the evening Lipitor ND 23763556333 20 MG Orally Active 1 table t Once a day Valium ND 54167638267 2 MG Orally Active 1 tablet as Once a day needed Results No Known Results Summary Purpose [employer] Submission
--- OUTSIDE RECORDS SUMMARY | 2019-11-20 00:08 | XMS REPORT ---
:1970 Author Organization [employer] Care Team Providers Name Role Phone Nathan, Na Provider Role Unavailable Allergies, Adverse Reactions, Alerts Substance Reaction Event Type N.K.D.A. Info Not Available Non Drug Allergy Problems Problem Type Condition Code Onset Dates Condition Statu s Assessment Allergic rhinitis J30.9 Active Assessment CKD (chronic kidney disease), stage N18.3 Active III Assessment Moderate persistent asthma without J45.40 Active complication Assessment Familial hypercholesterolemia E78.01 Active Assessment Hypertension, unspecified type I10 Active Assessment Low back pain M54.5 Active Problem Diverticulosis of intestine without K57.90 Active bleeding, unspecified intestinal tract location Problem Abdominal mass of other site R19.09 Active Problem History of colon resection Z90.49 A ctive Problem Ventral hernia without obstruction K43.9 Active or gangrene Problem CKD (chronic kidney disease), stage N18.3 Active III Problem Obesity E66.9 Active Problem Benign paroxysmal positional H81.11 Active vertigo of right ear Problem Anxiety F41.9 Active Problem Impacted cerumen, right ear H61.21 Active Problem Post menopausal syndrome N95.1 Act luis Problem Moderate persistent asthma without J45.40 Active complication Problem Hyperlipidemia E78.5 Active Problem Allergic rhinitis J30.9 Active Problem Other chronic pain G89.29 Active Problem Cough R05 Active Problem Familial hypercholesterolemia E78.01 Active Problem Vitamin D deficiency E55.9 Active Problem Mild intermittent asthma, J45.20 Ac tive unspecified whether complicated Problem Stressful life event affecting Z63.79 Active family Assessment Other chronic pain G89.29 Active Problem Carpal tunnel syndrome of left G56.02 Active wrist Assessment Post menopausal syndrome N95.1 Act luis Problem Mixed hyperlipidemia E78.2 Active Problem Pneumonia J18.9 Active Assessment Needs flu shot Z23 Active Problem Routine gynecological examination Z01.419 Active Problem Dizzy R42 Active Problem Diverticulitis K57.92 Active Problem Adult general medical exam Z00.00 A ctive Problem Hypertension, unspecified type I10 Active Medications Medication Code Code Instructions Start End Status Dosage System Date Date Crestor [facility] 79839913601 20 MG Orally Apr 29, Active 1 tabl et Once a day 2018 Tessalon Perles ND 83494537542 100 MG Orally Active 1 capsule Three times a as needed day Montelukast ND 39595368710 10 MG Orally Active 1 t ablet in Sodium Once a day the evening Amoxicillin ND 41239720259 500 MG Orally Active 1 capsule every 8 hrs Metronidazole ND 81349549800 500 MG Orally Active 1 tablet Three times a day Duloxetine HCl ND 09714949441 30 MG Orally Jun 02, Active 1 capsule Once a day 2018 Valium ND 23445010275 2 MG Orally Active 1 tablet as Once a day needed Flonase ND 28196673515 50 MCG/ACT Active 2 spray i n Nasally Once a each day nostril Cetirizine HCl [facility] 23387374706 10 MG Orally Active 1 tablet Once a day Lipitor ND 48820618635 20 MG Orally Active 1 table t Once a day Zofran [facility] 34091429823 8 MG Orally Active 1 tablet as Once a day needed Tizanidine HCl [facility] 27628967492 2 MG Orally at Jun 02, Jul 01, Active 1 tablet as bedtime 2018 2018 needed Crestor [facility] 17736002770 20 MG Orally Active 1 table t Once a day Meclizine HCl [facility] 77582172369 25 MG Orally Active a s directed Once a day Flonase ND 99912467770 50 MCG/ACT Active 2 spray i n Nasally Once a each day nostril Losartan ND 57257496250 50 MG Orally Active 1 tabl et Potassium Once a day Cipro [facility] 87946655755 500 MG Orally Active 1 tabl et every 12 hrs Spiriva Respimat ND 73973577734 1.25 MCG/ACT Jun 02, Sep 30, Active 2 puffs Inhalation Once 2018 2019 a day ProAir [facility] 15971158337 108 (90 Base) Jun 02, Active 2 puff s RespiClick MCG/ACT 2019 Inhalation every 6 hours prn sob Metoprolol ND 57240785481 100 MG Orally Active 1 t ablet Tartrate Twice a day with food Results No Known Results Immunizations Vaccine Administration Date Flucelvax - multidose vial Jun 02, 2019 Summary Purpose [employer] Submission
--- OUTSIDE RECORDS SUMMARY | 2019-11-20 00:08 | XMS REPORT ---
:1970 Author Organization [employer] Care Team Providers Name Role Phone Nathan, Na Provider Role Unavailable Allergies No Known Allergies Problems Problem Type Condition Code Onset Dates Condition Statu s Assessment Vitamin D deficiency E55.9 Active Assessment Familial hypercholesterolemia E78.01 Active Assessment Elevated alkaline phosphatase level R74.8 Active Assessment Allergic rhinitis J30.9 Active Assessment Hypertension, unspecified type I10 Active Problem Diverticulosis of intestine without K57.90 [...] life event affecting Z63.79 Active family Problem Carpal tunnel syndrome of left G56.02 Active wrist Problem Mixed hyperlipidemia E78.2 Active Problem Pneumonia J18.9 Active Problem Routine gynecological examination Z01.419 Active Problem Dizzy R42 Active Problem Diverticulitis K57.92 Active Problem Adult general medical exam Z00.00 A ctive Problem Hypertension, unspecified type I10 Active Medications No Known Medications Results No Known Results Summary Purpose [employer] Submission
--- OUTSIDE RECORDS SUMMARY | 2019-11-20 00:09 | XMS REPORT ---
:1970 Author Organization eClinicalWorks Care Team Providers Name Role Phone Nathan, Na Provider Role Unavailable Allergies, Adverse Reactions, Alerts Substance Reaction Event Type N.K.D.A. Info Not Available Non Drug Allergy Problems Problem Type Condition Code Onset Dates Condition Statu s Assessment Allergic rhinitis J30.9 Active Assessment Post menopausal syndrome N95.1 Act luis Assessment Familial hypercholesterolemia E78.01 Active Assessment Hypertension, unspecified type I10 Active Assessment Adult general medical exam Z00.00 A ctive Problem History of colon resection Z90.49 A ctive Problem Diverticulosis of intestine without K57.90 Active bleeding, unspecified intestinal tract location Problem Abdominal mass of other site R19.09 Active Problem Obesity E66.9 Active Problem CKD (chronic kidney disease), stage N18.3 Active III Problem Benign paroxysmal positional H81.11 Active vertigo of right ear Problem Cough R05 Active Problem Impacted cerumen, right ear H61.21 Active Problem Familial hypercholesterolemia E78.01 Active Problem Anxiety F41.9 Active Problem Moderate persistent asthma without J45.40 Active complication Problem Post menopausal syndrome N95.1 Act luis Problem Pneumonia J18.9 Active Problem Hyperlipidemia E78.5 Active Problem Chronic fatigue R53.82 Active Problem Allergic rhinitis J30.9 Active Problem Vitamin D deficiency E55.9 Active Problem Stressful life event affecting Z63.79 Active family Problem Mild intermittent asthma, J45.20 Ac tive unspecified whether complicated Problem Other chronic pain G89.29 Active Assessment Elevated fasting blood sugar R73.01 Active Problem Mixed hyperlipidemia E78.2 Active Assessment Chronic fatigue R53.82 Active Problem Adult general medical exam Z00.00 A ctive Problem Routine gynecological examination Z01.419 Active Problem Carpal tunnel syndrome of left G56.02 Active wrist Problem Diverticulitis K57.92 Active Problem Ventral hernia without obstruction K43.9 Active or gangrene Problem Hypertension, unspecified type I10 Active Problem Dizzy R42 Active Medications Medication Code Code Instructions Start End Status Dosage System Date Date Montelukast [facility] 51711325455 10 MG Orally Active 1 t ablet in Sodium Once a day the evening ProAir [facility] 93834366222 108 (90 Base) Jun 02, Active 2 puff s RespiClick MCG/ACT 2019 Inhalation every 6 hours prn sob Crestor ND 58460214996 20 MG Orally Active 1 table t Once a day Amoxicillin ND 78368653216 500 MG Orally Active 1 capsule every 8 hrs Cipro ND 78226057502 500 MG Orally Active 1 tabl et every 12 hrs Metoprolol ND 25674446316 100 MG Orally Active 1 t ablet Tartrate Twice a day with food Spiriva Respimat ND 06960640895 1.25 MCG/ACT Jun 02, Sep 30, Active 2 puffs Inhalation Once 2018 2019 a day Zofran ND 24863216811 8 MG Orally Active 1 tablet as Once a day needed Tessalon Perles ND 94248382367 100 MG Orally Active 1 capsule Three times a as needed day Meclizine HCl ND 93088668942 25 MG Orally Active a s directed Once a day Metronidazole ND 92097493183 500 MG Orally Active 1 tablet Three times a day Losartan ND 87666164069 50 MG Orally Active 1 tabl et Potassium Once a day Cetirizine HCl ND 14805485632 10 MG Orally Active 1 tablet Once a day Crestor [facility] 05270439569 20 MG Orally Active 1 table t Once a day Flonase ND 86508334259 50 MCG/ACT Active 2 spray i n Nasally Once a each day nostril Flonase ND 13598415557 50 MCG/ACT Active 2 spray i n Nasally Once a each day nostril Valium ND 42400137189 2 MG Orally Active 1 tablet as Once a day needed Duloxetine HCl ND 04405786938 60 MG Orally Active 1 capsule Once a day Tizanidine HCl ND 68222242948 2 MG Orally at Jun 02, Jul 01, Active 1 tablet as bedtime 2018 2018 needed Lipitor ND 09297994753 20 MG Orally Active 1 table t Once a day Results No Known Results Summary Purpose eClinicalWorks Submission
--- OUTSIDE RECORDS SUMMARY | 2019-11-20 00:10 | XMS REPORT ---
:1970 Author Organization eClinicalWorks Care Team Providers Name Role Phone Nathan, Na Provider Role Unavailable Allergies, Adverse Reactions, Alerts Substance Reaction Event Type N.K.D.A. Info Not Available Non Drug Allergy Problems Problem Type Condition Code Onset Dates Condition Statu s Assessment Hypertension, unspecified type I10 Active Assessment Post menopausal syndrome N95.1 Act luis Assessment Chest pain, atypical R07.89 Active Assessment Allergic rhinitis J30.9 Active Assessment Dizziness R42 Active Problem History of colon resection [...] complicated Problem Other chronic pain G89.29 Active Problem Mixed hyperlipidemia E78.2 Active Problem Adult general medical exam Z00.00 A ctive Problem Routine gynecological examination Z01.419 Active Problem Carpal tunnel syndrome of left G56.02 Active wrist Problem Diverticulitis K57.92 Active Problem Ventral hernia without obstruction K43.9 Active or gangrene Problem Hypertension, unspecified type I10 Active Problem Dizzy R42 Active Medications Medication Code Code Instructions Start End Status Dosage System Date Date Metoprolol [facility] 90398405301 100 MG Orally Active 1 t ablet Tartrate Twice a day with food Lipitor [facility] 22718318771 20 MG Orally Active 1 table t Once a day Meclizine HCl ND 15940757070 25 MG Orally Active a s directed Once a day Crestor ND 35540696908 20 MG Orally Active 1 table t Once a day Montelukast ND 30712409250 10 MG Orally Active 1 t ablet in Sodium Once a day the evening Losartan ND 85186871977 50 MG Orally Active 1 tabl et Potassium Once a day Amoxicillin ND 70745840200 500 MG Orally Active 1 capsule every 8 hrs Flonase ND 91643771724 50 MCG/ACT Active 2 spray i n Nasally Once a each day nostril Tessalon Perles ND 33255288012 100 MG Orally Active 1 capsule Three times a as needed day Cipro [facility] 85415454079 500 MG Orally Active 1 tabl et every 12 hrs Flonase ND 81297314905 50 MCG/ACT Active 2 spray i n Nasally Once a each day nostril Crestor [facility] 11536356319 20 MG Orally Active 1 table t Once a day Cetirizine HCl [facility] 43040215583 10 MG Orally Active 1 tablet Once a day Duloxetine HCl [facility] 59652973942 60 MG Orally Active 2 capsule Once a day Spiriva Respimat ND 81392804695 1.25 MCG/ACT Jun 02, Sep 30, Active 2 puffs Inhalation Once 2018 2019 a day Metronidazole ND 36281913880 500 MG Orally Active 1 tablet Three times a day Zofran [facility] 08878268717 8 MG Orally Active 1 tablet as Once a day needed Valium ND 72835142385 2 MG Orally Active 1 tablet as Once a day needed ProAir [facility] 50687713590 108 (90 Base) Jun 02, Active 2 puff s RespiClick MCG/ACT 2019 Inhalation every 6 hours prn sob Results No Known Results Summary Purpose eClinicalWorks Submission
--- OUTSIDE RECORDS SUMMARY | 2019-11-20 00:10 | XMS REPORT ---
:1970 Author Organization eClinicalWorks Care Team Providers Name Role Phone Nathan, Na Provider Role Unavailable Allergies No Known Allergies Problems Problem Type Condition Code Onset Dates Condition Statu s Problem History of colon resection Z90.49 A [...] I10 Active Problem Dizzy R42 Active Medications No Known Medications Results No Known Results Summary Purpose eClinicalWorks Submission
[2019-11-20 00:23] LABS: Lymphocytes % 37.4 % (15.3-44.8)
[2019-11-20] MEDS ORDERED: MORPHINE 4 MG/ML SYR ONE ×2 (00:25→02:59)
[2019-11-20] MEDS ORDERED: NA CHLORIDE 0.9% 1,000 ML ONE (00:25)
[2019-11-20 00:28] LABS: Absolute Lymphocytes (CBC) 5.1 K/uL (0.7-4.9); Basophils % 0.7 % (0-1.3); MPV 7.9 fL (7.6-11.3); RBC Red Blood Cell Count 4.84 M/uL (3.86-4.86)
[2019-11-20 00:49] LABS: ALT/SGPT 33 U/L (12-78); AST/SGOT 20 U/L (15-37); Albumin 3.4 g/dL (3.4-5.0); Alkaline Phosphatase 115 U/L (45-117); BUN Blood Urea Nitrogen 22 mg/dL (7-18); Bicarbonate 26 mmol/L (21-32); Bilirubin Direct < 0.1 mg/dL (0-0.2); Bilirubin Total 0.2 mg/dL (0.2-1.0); Glucose Level 124 mg/dL (74-106); Lipase 169 U/L (73-393); Potassium 3.7 mmol/L (3.5-5.1); Protein, Total 7.4 g/dL (6.4-8.2); Sodium Level 140 mmol/L (136-145)
[2019-11-20 02:14] LABS: Urine Blood NEGATIVE (NEG); Urine Glucose NEGATIVE (NEG); Urine Protein 2+ (NEG); Urine Specific Gravity >1.030 (1.005-1.030)
[2019-11-20 02:32] LABS: Calcium Oxalate Crystals- Ur FEW (NONE SEEN); Urine Bacteria 20-50 /HPF (<20); Urine Culture Reflex Order REFLEXED; Urine Mucus 2+ /HPF (NONE SEEN); Urine RBC NONE SEEN /HPF (NONE SEEN)
[2019-11-20 02:33] LABS: Urine Other Components MODERATE (NONE SEEN)
--- NOTE | 2019-11-20 04:36 | ER ---
Nurse's Notes [facility] Name: Tete Hinkle Age: 48 yrs Sex: Female : 1970 Arrival Date: 11/20/2019 Time: 00:06 Bed 8 Private MD: Diagnosis: Abdominal pain. Diarrhea. Leukocytosis Presentation: 11/19 00:06 Chief complaint: EMS states: Called for patient with sudden onset lower abdominal pain, lp1 diarrhea with x4 in the last hour; Hx of diverticulitis, colon resection; States previous similar symptoms, but diarrhea is worse; given medications with some relief. Coronavirus screen: Patient denies a cough. Patient denies shortness of breath or difficulty breathing. Patient denies measured and/or subjective temperature greater than 100.4F prior to today's visit. Patient denies travel on a cruise ship or to a country the [facility] currently lists as an affected area. Patient denies contact with known and/or suspected case of COVID-19. Ebola Screen: No symptoms or risks identified at this time. Initial Sepsis Screen: Does the patient meet any 2 criteria?. Risk Assessment: Do you want to hurt yourself or someone else? Patient reports no desire to harm self or others. Onset of symptoms was November 19, 2019 at 23:00. Care prior to arrival: Medication(s) given: Fentanyl 100 mcg IV, Zofran 4 mg IV IV initiated. 20 GA, in the right antecubital area, Glucose check: 139. 00:06 Method Of Arrival: EMS: [facility] lp1 00:06 Acuity: DEANDRA 3 lp1 00:10 Initial Sepsis Screen: Does the patient have a suspected source of infection? Yes: sg Acute abdominal pain. RN RECOVERY: 00:12 LMP N/A - Post-menopause lp1 Historical: - Allergies: 00:12 NKDA; lp1 - Home Meds: 00:12 Zyrtec Oral [Active]; Metoprolol Tartrate Oral [Active]; losartan oral oral [Active]; lp1 rosuvastatin oral oral [Active]; - PMHx: 00:12 Diabetes - NIDDM; Diverticulitis; Hypertension; Hyperlipidemia; Asthma; lp1 - PSHx: 00:12 colon resection; Thyroidectomy; Hernia repair; Appendectomy; lp1 - Immunization history:: Adult Immunizations up to date. - Social history:: Smoking status: Patient denies any tobacco usage or history of. Screenin:13 Abuse screen: Denies threats or abuse. Denies injuries from another. Nutritional lp1 screening: No deficits noted. Tuberculosis screening: No symptoms or risk factors identified. Assessment: 00:10 General: Appears uncomfortable, ill, Behavior is calm, cooperative. Pain: Complains of sg pain in suprapubic area, right lower quadrant and left lower quadrant Quality of pain is described as aching, sharp. 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 Cardiovascular: Capillary refill is brisk in bilateral fingers Patient's skin is warm and dry. Chest pain is denied. Respiratory: Airway is patent Respiratory effort is even, unlabored, Respiratory pattern is regular, symmetrical. GI: Abdomen is round non-distended, Bowel sounds present X 4 quads. hyperactive in left lower quadrant Reports lower abdominal pain, diarrhea, nausea. : No signs and/or symptoms were reported regarding the genitourinary system. EENT: No signs and/or symptoms were reported regarding the EENT system. Derm: Skin is intact, is healthy with good turgor, Skin is dry, Skin is normal, Skin temperature is warm. Musculoskeletal: Circulation, motion, and sensation intact. Range of motion: intact in all extremities. 00:17 Reassessment: Patient appears in no apparent distress at this time. sg 01:00 Reassessment: Patient appears in no apparent distress at this time. Patient and/or sg family updated on plan of care and expected duration. Pain level reassessed. Patient is alert, oriented x 3, equal unlabored respirations, skin warm/dry/pink. Patient states symptoms have not improved. 02:00 Reassessment: Patient appears in no apparent distress at this time. Patient and/or sg family updated on plan of care and expected duration. Pain level reassessed. lab results reported, pt stated understanding, awaiting orders for CT scan, NILA erazo notified. 03:00 Reassessment: Patient appears in no apparent distress at this time. Patient is alert, sg oriented x 3, equal unlabored respirations, skin warm/dry/pink. Patient states symptoms have not improved. 04:10 Reassessment: pt requesting pain medication at this time, ERP notified, awaiting ct sg scan results, pt stated understanding. 04:34 Reassessment: Patient appears in no apparent distress at this time. at bedside sg updating pt on POC and results of CT scan, pt to follow up with GI/PCP upon discharge for continuance of care, pt to be given one dose of abx here and a prescription to go home with, pt stated understanding, pt to be discharge to home with family. 05:00 Reassessment: a hand written prescription was written by the ERP for Cipro 500 sg mg dispense 10 tabs. Vital Signs: 00:06 Weight 108.86 kg (R); Height 5 ft. 3 in. (160.02 cm); Pain 8/10; lp1 00:10 BP 134 / 55; Pulse 50; Resp 18; Temp 97.6; Pulse Ox 98% on R/A; Pain 10/10; sg 00:50 BP 129 / 68; Pulse 55; Resp 16; Pulse Ox 98% on R/A; sg 02:00 BP 136 / 73; Pulse 53 MON; Resp 16; Pulse Ox 96% on R/A; sg 03:00 BP 142 / 86; Pulse 60; Resp 18; Pulse Ox 96% on R/A; sg 04:00 BP 183 / 82; Pulse 55; Resp 16; Pulse Ox 96% on R/A; sg 05:00 BP 176 / 72; Pulse 60; Resp 18; Temp 97.6; Pulse Ox 98% on R/A; Pain 10/10; sg 00:06 Body Mass Index 42.51 (108.86 kg, 160.02 cm) lp1 ED Course: 00:06 Patient arrived in ED. ds1 00:06 Fortino Manzano NP is PHCP. pm1 00:06 Papo Wilkes MD is Attending Physician. pm1 00:10 Triage completed. lp1 00:10 Initial lab(s) drawn, by me, sent to lab. Maintain EMS IV. Dressing intact. Site clean sg \T\ dry. Gauge \T\ site: 20 G RAC. IV is patent, is intact, with fluids infusing freely, with good blood return. 00:10 Patient has correct armband on for positive identification. Bed in low position. Call sg light in reach. Pulse ox on. NIBP on. Warm blanket given. Head of bed elevated. 00:10 Arm band placed on. sg 00:16 Yahir Burns, RN is Primary Nurse. sg 01:48 Awaiting radiology results. sg 03:45 CT Abd/Pelvis - IV Contrast Only In Process Unspecified. EDMS 04:38 No provider procedures requiring assistance completed. IV discontinued, intact, sg bleeding controlled, No redness/swelling at site. Pressure dressing applied. 04:42 Awaiting transportation. sg Administered Medications: 00:17 Drug: morphine 4 mg Route: IVP; Site: right antecubital; sg 01:00 Follow up: Response: No adverse reaction; Pain is decreased sg 00:17 Drug: NS 0.9% 1000 ml Route: IV; Rate: 1000 ml; Site: right antecubital; sg 02:54 Drug: morphine 4 mg Route: IVP; Site: right antecubital; ea 04:00 Follow up: Response: No adverse reaction; Pain is unchanged, physician notified sg 04:33 Drug: Rocephin 1 grams Route: IV; Rate: calculated rate; Site: right antecubital; ea Outcome: 04:35 Discharge ordered by MD. marshall 04:42 Discharged to home ambulatory, with family. sg 04:42 Condition: good 04:42 Discharge instructions given to patient, Instructed on discharge instructions, follow up and referral plans. safety practices, Demonstrated understanding of instructions, follow-up care, medications, Prescriptions given X 1. 05:08 Patient left the ED. sg Signatures: Dispatcher [employer] EDUT Yahir Burns RN RN sg Lam, Pin, MD MD Rebecca Aguirre ds1 Mary Chandler RN RN lp1 Fortino Manzano NP [employer]GE LEAD TEACHER pm1 Bety Riojas RN RN ea Corrections: (The following items were deleted from the chart) 04:05 04:00 BP 142 / 86; Pulse 60bpm; Resp 18bpm; Pulse Ox 96% RA; sg sg 05:12 04:42 Discharge instructions given to patient, Instructed on discharge instructions, sg follow up and referral plans. safety practices, Demonstrated understanding of instructions, follow-up care, medications, Prescriptions given X 2, sg
--- NOTE | 2019-11-20 04:36 | EDPHYS ---
Physician Documentation [facility] Name: Tete Hinkle Age: 48 yrs Sex: Female : 1970 Arrival Date: 11/20/2019 Time: 00:06 Bed 8 Private MD: ED Physician Papo Wilkes HPI: 11/19 00:16 This 48 yrs old Female presents to ER via EMS with complaints of pm1 Abdominal Pain. 00:16 The patient presents with abdominal pain in the upper abdomen. Onset: The pm1 symptoms/episode began/occurred 1 hour(s) ago. The symptoms do not radiate. Associated signs and symptoms: Pertinent positives: diarrhea, nausea, x 4, Pertinent negatives: chest pain, fever, shortness of breath, vomiting. The symptoms are described as crampy. Modifying factors: The symptoms are alleviated by medication, fentanyl, given in route by EMS. the symptoms are aggravated by nothing. Severity of pain: in the emergency department the pain has improved is a 8 / 10. The patient has experienced similar episodes in the past, a few times. 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 - Social history:: Smoking status: Patient denies any tobacco usage or history of. ROS: 00:16 Constitutional: Negative for fever, chills, and weight loss, Cardiovascular: Negative pm1 for chest pain, palpitations, and edema, Respiratory: Negative for shortness of breath, cough, wheezing, and pleuritic chest pain. 00:16 Back: Negative for injury and pain, MS/Extremity: Negative for injury and deformity, Skin: Negative for injury, rash, and discoloration. 00:16 Abdomen/GI: Positive for abdominal pain, nausea, diarrhea, Negative for vomiting. 00:16 Neuro: Negative for headache, weakness, numbness, tingling, and seizure. pm1 Exam: 00:16 Constitutional: This is a well developed, well nourished patient who is awake, alert, pm1 and in no acute distress. Head/Face: Normocephalic, atraumatic. Chest/axilla: Normal chest wall appearance and motion. Nontender with no deformity. No lesions are appreciated. 00:16 Back: No spinal tenderness. No costovertebral tenderness. Full range of motion. Skin: Warm, dry with normal turgor. Normal color with no rashes, no lesions, and no evidence of cellulitis. MS/ Extremity: Pulses equal, no cyanosis. Neurovascular intact. Full, normal range of motion. 00:16 Cardiovascular: Exam negative for acute changes, Rate: normal, Pulses: no pulse deficits are appreciated. 00:16 Respiratory: Exam negative for acute changes, respiratory distress, shortness of breath. 00:16 Abdomen/GI: Inspection: obese 00:16 Neuro: Exam negative for acute changes, Orientation: is normal, Mentation: is normal, Motor: is normal, moves all fours. Vital Signs: 00:06 Weight 108.86 kg (R); Height 5 ft. 3 in. (160.02 cm); Pain 8/10; lp1 00:10 BP 134 / 55; Pulse 50; Resp 18; Temp 97.6; Pulse Ox 98% on R/A; Pain 10/10; sg 00:50 BP 129 / 68; Pulse 55; Resp 16; Pulse Ox 98% on R/A; sg 02:00 BP 136 / 73; Pulse 53 MON; Resp 16; Pulse Ox 96% on R/A; sg 03:00 BP 142 / 86; Pulse 60; Resp 18; Pulse Ox 96% on R/A; sg 04:00 BP 183 / 82; Pulse 55; Resp 16; Pulse Ox 96% on R/A; sg 05:00 BP 176 / 72; Pulse 60; Resp 18; Temp 97.6; Pulse Ox 98% on R/A; Pain 10/10; sg 00:06 Body Mass Index 42.51 (108.86 kg, 160.02 cm) lp1 MDM: 00:06 Patient medically screened. pm1 01:27 Data reviewed: vital signs. Data interpreted: Pulse oximetry: on room air is 98 %. pm1 Interpretation: normal. 11/19 00:07 Order name: Basic Metabolic Panel; Complete Time: 01:04 pm1 11/19 00:07 Order name: CBC with Diff; Complete Time: 00:46 pm1 11/19 00:07 Order name: Creatinine for Radiology; Complete Time: 00:48 pm1 11/19 00:07 Order name: Hepatic Function; Complete Time: 01:04 pm1 11/19 00:07 Order name: Lipase; Complete Time: 01:04 pm1 11/19 00:08 Order name: Urine Microscopic Only; Complete Time: 02:51 pm1 11/19 02:13 Order name: Urine Dipstick--Ancillary (enter results); Complete Time: 02:15 sg 11/19 02:13 Order name: Urine --Ancillary (enter results); Complete Time: 02:15 sg 11/19 02:34 Order name: Urine Culture EDCO 11/19 02:52 Order name: CT Abd/Pelvis - IV Contrast Only pm1 11/19 00:07 Order name: IV Saline Lock; Complete Time: 00:16 pm1 11/19 00:07 Order name: Labs collected and sent; Complete Time: 00:16 pm1 11/19 00:08 Order name: Urine Dipstick-Ancillary (obtain specimen); Complete Time: 02:11 pm1 11/19 00:08 Order name: Urine Test (obtain specimen); Complete Time: 02:11 pm1 Administered Medications: 00:17 Drug: morphine 4 mg Route: IVP; Site: right antecubital; sg 01:00 Follow up: Response: No adverse reaction; Pain is decreased sg 00:17 Drug: NS 0.9% 1000 ml Route: IV; Rate: 1000 ml; Site: right antecubital; sg 02:54 Drug: morphine 4 mg Route: IVP; Site: right antecubital; ea 04:00 Follow up: Response: No adverse reaction; Pain is unchanged, physician notified sg 04:33 Drug: Rocephin 1 grams Route: IV; Rate: calculated rate; Site: right antecubital; ea Disposition: 04:32 Co-signature as Attending Physician, Papo Wilkes MD. pkl Disposition: 11/20/19 04:35 Discharged to Home. Impression: Abdominal pain. Diarrhea. Leukocytosis . - Condition is Stable. - Work release form, Medication Reconciliation Form, Thank You Letter, Antibiotic Education, Prescription Opioid Use form. - Follow up: Private Physician; When: 1 - 2 days; Reason: Re-evaluation by your physician. - Problem is new. - Symptoms have improved. Signatures: Dispatcher [employer] Yahir Faulkner RN RN Papo Pineda MD MD pkl Pena, Laura RN RN lp1 Fortino Manzano, PLATFORM ARCHITECT PLATFORM ARCHITECT pm1 Bety Riojas RN RN ea Corrections: (The following items were deleted from the chart) 05:08 04:35 11/20/2019 04:35 Discharged to Home. Impression: Abdominal pain. Diarrhea. sg Leukocytosis . Condition is Stable. Forms are Medication Reconciliation Form, Thank You Letter, Antibiotic Education, Prescription Opioid Use. Follow up: Private Physician; When: 1 - 2 days; Reason: Re-evaluation by your physician. Problem is new. Symptoms have improved. pkl
[2019-11-20] MEDS ORDERED: CEFTRIAXONE/SWI 1gm 1 GM/10 ML SYR ONE (04:37)
[2019-11-20 05:30] VITALS: TEMP 97.6
[2019-11-20 05:33] VITALS: O2SAT 96
[2019-11-20 05:36] VITALS: BP 183/82
--- NOTE | 2019-11-20 12:36 | RAD REPORT ---
Pain. EXAM DESCRIPTION: CT - Abdomen Pelvis W Contrast - 11/20/2019 6:29 am CLINICAL HISTORY: The patient is 48 years old and is Female; ABD PAIN TECHNIQUE: Axial computed tomography images of the abdomen and pelvis with intravenous contrast. S agittal and coronal reformatted images were created and reviewed. This CT exam was performed using one or more of the following dose reduction techniques: automated exposure control, adjustment of t he mA and/or kV according to patient size, and/or use of iterative reconstruction technique. COMPARISON: CT of the abdomen and pelvis December 09, 2018. FINDINGS: LUNG BASES: Unremarkable. No mass. No consolidation. ABDOMEN: LIVER: Unremarkable. No mass. GALLBLADDER AND BILE DUCTS: The gallbladder is distended. PANCREAS: No ductal dilation. No mass. SPLEEN: Unremarkable. ADRENALS: Unremarkable. No mass. KIDNEYS AND URETERS: Unremarkable. The kidneys enhance symmetrically. No obstructing renal or ure teral calculus is seen. No hydronephrosis or hydroureter. No perinephric fluid or stranding. STOMACH AND BOWEL: The stomach is normally distended. The small bowel is normal in caliber. Post surgical change of the the distal descending/sigmoid colon is present. At the site of anastomosis, th ere is a large amount of stool which appears to be impacted with minimal surrounding inflammation. Th e remainder of the colon is normal in caliber with minimal stool throughout. PELVIS: APPENDIX: The appendix is surgically absent. BLADDER: The bladder is nearly empty. REPRODUCTIVE: Unremarkable as visualized. ABDOMEN and PELVIS: INTRAPERITONEAL SPACE: Unremarkable. No free air. No significant fluid collection. BONES/JOINTS: No acute fracture. SOFT TISSUES: The soft tissues are normal. VASCULATURE: Unremarkable. No abdominal aortic aneurysm. LYMPH NODES: Unremarkable. No enlarged lymph nodes. IMPRESSION: Postsurgical change at the level of the distal descending/sigmoid colon. There is an imp acted stool ball within this region with mild surrounding inflammation. There is no evidence of bowel obstruction however. Electronically signed by: Betsy Yip MD 11/20/2019 3:54 AM CDT Due to temporary technical issues with the PACS/Fluency reporting system, reports are being signed by the in house radiologist as a courtesy to ensure prompt reporting. The interpreting radiologist is f ully responsible for the content of the report.
== END 2019-11-20 05:08 | disposition home or self-care (01) ==
LOC: ER 00:04
DX: R19.7 Diarrhea, unspecified (principal); D72.829 Elevated white blood cell count, unspecified; I10 Essential (primary) hypertension; E11.9 Type 2 diabetes mellitus without complications; E78.5 Hyperlipidemia, unspecified; J45.909 Unspecified asthma, uncomplicated
CPT/HCPCS: 87088; 85025; 87086; 80048; 36415; 81025; 80076; 83690; 74177; Q9967; J0696; J7030; 81003; 81015

== ENCOUNTER 2020-09-02 11:26 | Emergency (ER) | payer OTHER ==
--- OUTSIDE RECORDS SUMMARY | 2020-09-02 11:44 | XMS REPORT | Continuity of Care Document ---
:1970 Author Organization [facility] t Address [address] [place] [address] Care Team Providers Name Role Phone Unavailable Unavailable Unavailable Problems This patient has no known problems. Allergies, Adverse Reactions, Alerts This patient has no known allergies or adverse reactions. Medications Ordered Filled Start Stop Current Ordering Indication Dosage Frequency Signature Comments Components Source Medication Medication Date Date Medication? Clinician (SIG) Name Name Albuterol Albuterol Yes Chuy [address] [facility] Sulfate HFA Sulfate HFA 7-14 [facility] ProAir ProAir 2018-08 Yes Chuy [address] [facility] RespiClick RespiClick 0-25 Thomas Brigette [facility] - [facility] Losartan Losartan Yes Chuy [address] [facility] Potassium Potassium 8-23 [facility] Valium Valium Yes Chuy [address] [facility] 7-09 [facility] Crestor Crestor Yes Chuy [address] 9[facility]21 [facility] Flonase Flonase Yes Chuy [address] [facility] 8-24 [facility] each [facility] nostril [facility] Metronidazo Metronidazo Yes Chuy [address] [facility] Zofran Zofran Yes [facility] [address] [facility] as needed [facility] Clinics Meclizine Meclizine Yes Chuy as [facility] HCl HCl Thomas directed [facility] ent Clinics Duloxetine Duloxetine Yes Chuy [address] [facility] HCl HCl Thomas [facility] ent [facility] Cetirizine Cetirizine Yes Chuy [address] [facility] HCl HCl Thomas [facility] ent Clinics Montelukast Montelukast Yes Chuy [address] [facility] Sodium Sodium Thomas in the [facility] - evening [facility] ent Clinics Metoprolol Metoprolol Yes Chuy [address] [facility] Tartrate Tartrate Thomas with food L [facility] ent [facility] Immunizations Ordered Filled Immunization Date Status Comments Sour e Immunization Name Name Flucgregoriavax - Flucelvax - 2019-06-[address] [facility] - multidose vial multidose vial 00:00:00 [facility] Outpatient Clinics Procedures This patient has no known procedures. Encounters Start End Encounter Admission Attending Care Care Encounter Source Date/Time Date/Time Type Type Clinicians Facility Department ID 2020-05-31 2020-05-31 Outpatient [facility] [id number] [facility]00 [facility] ent Clinics 2020-03-11 2020-03-11 Outpatient Miguel [facility] [id number] [facility] 15:43:00 15:43:00 t [facility] Family Medicine l Medicine Outpati ent Clinics 2020-03-08 2020-03-08 [facility] [id number] [facility] 13:45:00 13:45:00 t [facility] Family Medicine l Medicine Outpati ent Clinics 2020-03-07 2020-03-07 [facility] [id number] [facility] 17:22:00 17:22:00 t [facility] Family Medicine l Medicine Outpati ent Clinics 2020-03-07 2020-03-07 [facility] [id number] [facility] 16:40:00 16:40:00 t [facility] Medicine l Medicine Outpati ent Clinics 2020-03-06 2020-03-06 [facility] [id number] 11[facility]04:00 11:04:00 t [facility] Medicine l Medicine Outpati ent Clinics 2020-02-20 2020-02-20 [facility] [id number] 10[facility]00:00 10:00:00 [facility] Medicine l Medicine Outpati ent Clinics 2020-02-19 2020-02-19 [facility] [id number] 08:56:00 08:56:00 t [facility] Medicine l Medicine Outpati ent Clinics 2019-12-11 2019-12-11 [facility] [id number] 10[facility]21:00 10:21:00 [facility] l Medicine Outpati ent Clinics 2019-12-08 2019-12-08 [facility] [id number] [facility] 13[facility]15:00 13:15:00 [facility] Medicine l Medicine Outpati ent Clinics 2019-12-07 2019-12-07 [facility] [id number] 10:11:00 10:11:00 [facility] Medicine l Medicine Outpati ent Clinics 2019 2019 [facility] [id number] 16:00:00 16:00:00 [facility] Medicine l Medicine Outpati ent Clinics 2019-11-22 2019-11-22 [facility] [id number] [facility] 08[facility]28:00 08:28:00 [facility] Medicine l Medicine Outpati ent Clinics 2019-11-21 2019-11-21 [facility] [id number] 09:00:00 09:00:00 [facility] Medicine l Medicine Outpati ent Clinics 2019-08-22 2019-08-22 [facility] [id number] [facility] 16:20:00 16:20:[address] [place] [address] [facility] - [facility] Medicine l Medicine Outpati ent Clinics 2019-08-08 2019-08-08 [facility] [id number] [facility] 14:37:00 14:37:[address] [place] [address] [facility] - Drive [facility] Medicine l Medicine Outpati ent Clinics 2019-06-30 2019-06-30 [facility] [id number] [facility] 14:00:00 14:00:00 [place] [address] [facility] - Drive [facility] Medicine l Medicine Outpati ent Clinics 2019-06-22 2019-06-22 [facility] [id number] [facility] 16:34:00 16:34:[address] [place] [address] [facility] - Drive [facility] Medicine Outpati ent Clinics 2019-06-02 2019-06-02 [facility] [id number] [address] 13:00:00 13:00:00 [place] [address] [facility] - Drive [facility] Medicine Medicine Outpati ent Clinics 2019-03-31 2019-03-31 [facility] [id number] 13:40:00 13:40:00 [place] [address] [facility] - Drive [facility] Medicine Medicine Outpati ent Clinics 2019-03-01 2019-03-01 [facility] [id number] 10:00:00 10:00:00 [place] [facility] - [facility] Medicine l Medicine Outpati ent Clinics 2019-02-20 2019-02-20 [facility] [id number] 10:00:00 10:00:00 [place] [address] [facility] - Drive [facility] Medicine l Medicine Outpati ent Clinics 2019-02-14 2019-02-14 [facility] [id number] 09:40:00 09:40:00 [place] [address] [facility] - Drive [facility] l Medicine Outpati ent Clinics 2019-02-07 2019-02-07 [facility] [id number] 11:20:00 11:20:00 [place] [address] [facility] - Drive [facility] Medicine Medicine Outpati ent Clinics 2019-01-05 2019-01-05 [facility] [id number] [facility] 15:15:00 15:15:00 t Specialty/U Brigette kes - Specialty rology [facility]Urology [facility] l Clinic Outpati ent Clinics 2018-12-15 2018-12-15 [facility] [id number] [facility] 15:15:00 15:15:00 t Specialty/U Brigette kes - Specialty rology [facility]Urology Clinic l Clinic Outpati ent Clinics 2018-12-01 2018-12-01 [facility] [id number] 09:48:00 09:48:00 t [facility] 2018-11-29 2018-11-29 [facility] [id number] 11:00:00 11:00:00 t [facility] - Care [facility] Clinic l Outpati ent Clinics 2018-05-15 2018-05-15 [facility] [id number] 17:51:00 17:51:00 [place] [address] [facility] - Drive [facility] Medicine l Medicine Outpati ent Clinics 2018-05-03 2018-05-03 [facility] [id number] 15:05:00 15:05:00 [place] [address] [facility] - Drive [facility] Medicine l Medicine Outpati ent Clinics 2018-05-03 2018-05-03 [facility] [id number] 08:50:00 08:50:00 [place] [address] [facility] - Drive [facility] Medicine l Medicine Outpati ent Clinics 2018-04-29 2018-04-29 [facility] [id number] [facility] 10:30:00 10:30:00 [place] [address] [facility] s - Drive [facility] Medicine l Medicine Outpati ent Clinics 2018-04-01 2018-04-01 [facility] [id number] [facility] 14:19:00 14:19:00 [place] [address] [facility] - Drive [facility] Medicine l Medicine Outpati ent Clinics 2018-04-01 2018-04-01 [facility] [id number] [facility] 11:15:00 11:15:00 [place] [facility] Medicine Outpati ent Clinics Results This patient has no known results.
[2020-09-02 13:31] LABS: SARS-COV-2 RT PCR NEGATIVE (NEGATIVE)
--- NOTE | 2020-09-02 13:52 | RAD REPORT ---
EXAM DESCRIPTION: RAD - Chest Single View - 09/02/2020 1:18 pm CLINICAL HISTORY: Cough;Congestion COMPARISON: Portable September 2016 TECHNIQUE: AP portable chest image was obtained 09/02/2020 1:18 pm . FINDINGS: Large body habitus affects and shallow inspiration limit the portable examination. Interst itial pattern matches comparison. No focal mass or consolidation. No failure or volume overload suspe cted. Heart and vasculature are normal. No measurable pleural effusion and no pneumothorax. No acute bony abnormality seen. No acute aortic findings suspected. IMPRESSION: No acute cardiopulmonary process seen on this limited exam. Chest is not significantly different from 2017.
--- NOTE | 2020-09-02 14:28 | EDPHYS ---
Physician Documentation [facility] Name: Tete Hinkle Age: 49 yrs Sex: Female : 1970 Arrival Date: 09/02/2020 Time: 11:29 Bed 24 Private MD: Shila Nathan ED Physician Jeramy Leo HPI: 09/02 17:07 This 49 yrs old Female presents to ER via Ambulatory with complaints of kb Cough, Asthma Exacerbation. 17:07 The patient or guardian reports cough, flu symptoms, low-grade fever, myalgias. Onset: kb The symptoms/episode began/occurred 3 day(s) ago. Severity of symptoms: At their worst the symptoms were moderate, in the emergency department the symptoms are unchanged. Modifying factors: The symptoms are alleviated by nothing, the symptoms are aggravated by nothing. Associated signs and symptoms: Pertinent positives: sore throat. The patient has not experienced similar symptoms in the past. The patient has not recently seen a physician. Pt reports cough, congestion, shortness of breath, bodyaches, and sore throat for 3 days. Historical: - Allergies: 11:40 NKDA; hb - Home Meds: 11:40 losartan Oral [Active]; Metoprolol Tartrate Oral [Active]; rosuvastatin Oral [Active]; hb Zyrtec Oral [Active]; - PMHx: 11:40 Asthma; Diabetes - NIDDM; Diverticulitis; Hyperlipidemia; Hypertension; hb - PSHx: 11:40 colon resection; Thyroidectomy; Hernia repair; Appendectomy; hb - Immunization history:: Adult Immunizations up to date. - Social history:: Smoking status: Patient denies any tobacco usage or history of. ROS: 17:07 Cardiovascular: Negative for chest pain, palpitations, and edema, Abdomen/GI: Negative kb for abdominal pain, nausea, vomiting, diarrhea, and constipation, Back: Negative for injury and pain, MS/Extremity: Negative for injury and deformity, Skin: Negative for injury, rash, and discoloration, Neuro: Negative for headache, weakness, numbness, tingling, and seizure. 17:07 Constitutional: Positive for body aches, chills, fatigue, malaise. 17:07 ENT: Positive for sinus congestion, sore throat. 17:07 Respiratory: Positive for cough, Negative for dyspnea on exertion, hemoptysis, orthopnea, pleurisy, shortness of breath, sputum production, wheezing. Exam: 17:10 Constitutional: This is a well developed, well nourished patient who is awake, alert, kb and in no acute distress. Head/Face: Normocephalic, atraumatic. ENT: Nares patent. No nasal discharge, no septal abnormalities noted. Tympanic membranes are normal and external auditory canals are clear. Oropharynx with no redness, swelling, or masses, exudates, or evidence of obstruction, uvula midline. Mucous membranes moist. Neck: Trachea midline, no thyromegaly or masses palpated, and no cervical lymphadenopathy. Supple, full range of motion without nuchal rigidity, or vertebral point tenderness. No Meningismus. Chest/axilla: Normal chest wall appearance and motion. Nontender with no deformity. No lesions are appreciated. Cardiovascular: Regular rate and rhythm with a normal S1 and S2. No gallops, murmurs, or rubs. Normal PMI, no JVD. No pulse deficits. Respiratory: Lungs have equal breath sounds bilaterally, clear to auscultation and percussion. No rales, rhonchi or wheezes noted. No increased work of breathing, no retractions or nasal flaring. Abdomen/GI: Soft, non-tender, with normal bowel sounds. No distension or tympany. No guarding or rebound. No evidence of tenderness throughout. Skin: Warm, dry with normal turgor. Normal color with no rashes, no lesions, and no evidence of cellulitis. MS/ Extremity: Pulses equal, no cyanosis. Neurovascular intact. Full, normal range of motion. Neuro: Awake and alert, GCS 15, oriented to person, place, time, and situation. Cranial nerves II-XII grossly intact. Motor strength 5/5 in all extremities. Sensory grossly intact. Cerebellar exam normal. Normal gait. Vital Signs: 11:38 BP 191 / 92; Pulse 102; Resp 20; Temp 97.4; Pulse Ox 98% on R/A; Weight 108.86 kg; hb Height 5 ft. 3 in. (160.02 cm); Pain 6/10; 11:38 Body Mass Index 42.51 (108.86 kg, 160.02 cm) hb MDM: 11:44 Patient medically screened. kb 17:07 Data reviewed: vital signs, nurses notes. Data interpreted: Pulse oximetry: on room air kb is 98 %. Interpretation: normal. Counseling: I had a detailed discussion with the patient and/or guardian regarding: the historical points, exam findings, and any diagnostic results supporting the discharge/admit diagnosis, lab results, radiology results, the need for outpatient follow up, a family practitioner, to return to the emergency department if symptoms worsen or persist or if there are any questions or concerns that arise at home. 09/02 11:42 Order name: Chest Single View XRAY; Complete Time: 13:53 kb 09/02 13:31 Order name: COVID-19/FLU A+B; Complete Time: 13:48 EDMS Administered Medications: No medications were administered Disposition: 18:59 Co-signature as Attending Physician, Jeramy Leo MD. rn Disposition: 09/02/20 14:27 Discharged to Home. Impression: Acute upper respiratory infection, unspecified. - Condition is Stable. - Discharge Instructions: Upper Respiratory Infection, Adult, Nazn-yy-Fhes. - Prescriptions for Prednisone 20 mg Oral Tablet - take 1 tablet by ORAL route once daily for 5 days; 5 tablet. Albuterol Sulfate 90 mcg/actuation - inhale 1-2 puff by INHALATION route every 4-6 hours; 1 Inhaler. - Medication Reconciliation Form, Thank You Letter, Antibiotic Education, Prescription Opioid Use form. - Follow up: Emergency Department; When: As needed; Reason: Worsening of condition. Follow up: Private Physician; When: 2 - 3 days; Reason: Recheck today's complaints, Continuance of care, Re-evaluation by your physician. Signatures: Dispatcher [employer] EDMS Erika Mathias, RHODA-C DIRECTOR DIETETICS DEPARTMENT-Jeramy Johnson MD MD rn Baxter, Heather, RN RN hb Corrections: (The following items were deleted from the chart) 14:52 14:27 09/02/2020 14:27 Discharged to Home. Impression: Acute upper respiratory hb infection, unspecified. Condition is Stable. Forms are Medication Reconciliation Form, Thank You Letter, Antibiotic Education, Prescription Opioid Use. Follow up: Emergency Department; When: As needed; Reason: Worsening of condition. Follow up: Private Physician; When: 2 - 3 days; Reason: Recheck today's complaints, Continuance of care, Re-evaluation by your physician. kb
--- NOTE | 2020-09-02 14:28 | ER ---
Nurse's Notes [facility] Name: Tete Hinkle Age: 49 yrs Sex: Female : 1970 Arrival Date: 09/02/2020 Time: 11:29 Bed 24 Private MD: Shila Nathan Diagnosis: Acute upper respiratory infection, unspecified Presentation: 09/02 11:38 Chief complaint: Productive cough with greenish yellow sputum, headache, body aches, hb sore throat, and SOB x 3 days. Coronavirus screen: Client presents with at least one sign or symptom that may indicate coronavirus-19. Standard/surgical mask placed on the client. Provider contacted for isolation considerations. Ebola Screen: No symptoms or risks identified at this time. Initial Sepsis Screen: Does the patient meet any 2 criteria? HR > 90 bpm. No. Patient's initial sepsis screen is negative. Does the patient have a suspected source of infection? No. Patient's initial sepsis screen is negative. Risk Assessment: Do you want to hurt yourself or someone else? Patient reports no desire to harm self or others. Onset of symptoms was August 31, 2020. 11:38 Method Of Arrival: Ambulatory hb 11:38 Acuity: DEANDRA 3 hb Historical: - Allergies: 11:40 NKDA; hb - Home Meds: 11:40 losartan Oral [Active]; Metoprolol Tartrate Oral [Active]; rosuvastatin Oral [Active]; hb Zyrtec Oral [Active]; - PMHx: 11:40 Asthma; Diabetes - NIDDM; Diverticulitis; Hyperlipidemia; Hypertension; hb - PSHx: 11:40 colon resection; Thyroidectomy; Hernia repair; Appendectomy; hb - Immunization history:: Adult Immunizations up to date. - Social history:: Smoking status: Patient denies any tobacco usage or history of. Screenin:20 Abuse screen: Denies threats or abuse. Denies injuries from another. Nutritional hb screening: No deficits noted. Tuberculosis screening: No symptoms or risk factors identified. Fall Risk None identified. Assessment: 13:20 General: Appears in no apparent distress. Behavior is calm, cooperative. Pain: Pain hb currently is 6 out of 10 on a pain scale. Neuro: Level of Consciousness is awake, alert, obeys commands, Oriented to person, place, time, situation. Cardiovascular: Capillary refill < 3 seconds Patient's skin is warm and dry. Respiratory: Reports shortness of breath at rest cough that is productive, Respiratory effort is even, unlabored, Respiratory pattern is regular, symmetrical. GI: Reports nausea. : No signs and/or symptoms were reported regarding the genitourinary system. EENT: No signs and/or symptoms were reported regarding the EENT system. Derm: Skin is pink, warm \T\ dry. Musculoskeletal: Reports body aches. Vital Signs: 11:38 BP 191 / 92; Pulse 102; Resp 20; Temp 97.4; Pulse Ox 98% on R/A; Weight 108.86 kg; hb Height 5 ft. 3 in. (160.02 cm); Pain 6/10; 11:38 Body Mass Index 42.51 (108.86 kg, 160.02 cm) hb ED Course: 11:29 Patient arrived in ED. mr 11:29 Shila Nathan MD is Private Physician. mr 11:40 Triage completed. hb 11:40 Arm band placed on. hb 11:44 E[facility] Math[facility]C [facility] kb 11:44 Jeramy Leo MD is Attending Physician. kb 13:19 Aubree Hughes, ARYA is Primary Nurse. hb 13:20 Patient has correct armband on for positive identification. Bed in low position. Call hb light in reach. Side rails up X 1. 13:23 Chest Single View XRAY In Process Unspecified. EDMS Administered Medications: No medications were administered Outcome: 14:27 Discharge ordered by MD. kb 14:35 Discharged to home ambulatory. hb 14:35 Condition: stable 14:35 Discharge instructions given to patient, Instructed on discharge instructions, follow up and referral plans. medication usage, Demonstrated understanding of instructions, follow-up care, medications, Prescriptions given X 2. 14:52 Patient left the ED. hb Signatures: Dispatcher [employer] EDMS Erika Mathias FNP-C FNP-Ckb RiveraVandana Aubree Hughes, RN RN Corrections: (The following items were deleted from the chart) 11:41 11:38 Chief complaint: Productive cough with greenish yellow sputum and SOB x 3 days. hbhb
[2020-09-02 15:08] VITALS: BP 191/92; TEMP 97.4; O2SAT 98
== END 2020-09-02 14:52 | disposition home or self-care (01) ==
LOC: ER 11:26
DX: J06.9 Acute upper respiratory infection, unspecified (principal); Z20.822 Contact with and (suspected) exposure to COVID-19; J45.909 Unspecified asthma, uncomplicated; E11.9 Type 2 diabetes mellitus without complications; E78.5 Hyperlipidemia, unspecified; I10 Essential (primary) hypertension
CPT/HCPCS: 0240U; 71045; 99283

== ENCOUNTER 2020-09-11 14:17 | Emergency (ER) | payer OTHER ==
--- OUTSIDE RECORDS SUMMARY | 2020-09-11 14:30 | XMS REPORT | Continuity of Care Document ---
:1970 Author Organization [facility] t Address [address] [place] [address] Care Team Providers Name Role Phone Unavailable [...] tablet [facility] Meclizine Meclizine Yes Chuy as [facility] HCl HCl Thomas directed [facility] Duloxetine Duloxetine Yes Chuy [address] [facility] [address] HCl HCl [facility] Cetirizine Cetirizine Yes Chuy [address] HCl HCl [facility] Montelukast Montelukast Yes Chuy [address] [facility] Sodium Sodium [facility] in [facility]ics Metoprolol Metoprolol Yes Chuy [address] [facility] [address] Tartrate Tartrate Thomas with food L [facility] ent [facility] Immunizations Ordered Filled Immunization Date Status Comments Sour e Immunization Name Name Flucgregoriavax - Flucelvax - 2019-06-[address] [facility] - multidose vial multidose vial 00:00:00 [facility] Outpatient Clinics Procedures This patient has no known procedures. Encounters Start End Encounter Admission Attending Care Care Encounter Source Date/Time Date/Time Type Type Clinicians Facility Department ID 2020-05-31 2020-05-31 Outpatient [facility] [id number] [facility] 2020-03-11 2020-03-11 Outpatient Miguel [facility] [id number] [facility] 15:43:00 15:43:00 t [employer] [facility] l Medicine Outpati ent Clinics 2020-03-08 2020-03-08 [facility] [id number] 13:45:00 13:45:00 t [employer] [facility] l Medicine Outpati ent Clinics 2020-03-07 2020-03-07 [facility] [id number] 17:22:00 17:22:00 t [employer] [facility] l Medicine Outpati ent Clinics 2020-03-07 2020-03-07 [facility] [id number] [facility] 16:40:00 16:40:00 t [employer] [facility] Medicine l Medicine Outpati ent Clinics 2020-03-06 2020-03-06 [facility] [id number] 11:04:00 11:04:00 t [facility] Medicine l Medicine Outpati ent Clinics 2020-02-20 2020-02-20 [facility] [id number] 10:00:00 10:00:00 [facility] Medicine l Medicine Outpati ent Clinics 2020-02-19 2020-02-19 [facility] [id number] [facility] 08:56:00 08:56:00 t [facility] Medicine l Medicine Outpati ent Clinics 2019-12-11 2019-12-11 [facility] [id number] 10:21:00 10:21:00 [facility] l Medicine Outpati ent Clinics 2019-12-08 2019-12-08 [facility] [id number] 13:15:00 13:15:00 t [employer] [facility] Medicine l Medicine Outpati ent Clinics 2019-12-07 2019-12-07 [facility] [id number] 10:11:00 10:11:00 t [employer] [facility] Medicine l Medicine Outpati ent Clinics 2019 2019 [facility] [id number] [facility] 16:00:00 16:00:00 t [employer] [facility] Medicine l Medicine Outpati ent Clinics 2019-11-22 2019-11-22 [facility] [id number] 08:28:00 08:28:00 t [employer] [facility] Medicine l Medicine Outpati ent Clinics 2019-11-21 2019-11-21 [facility] [id number] 09:00:00 09:00:00 t [employer] [facility] Medicine l Medicine Outpati ent Clinics 2019-08-22 2019-08-22 [facility] [id number] 16:20:00 16:20:[address] [place] [address] - [address] [facility] Medicine l Medicine Outpati ent Clinics 2019-08-08 2019-08-08 [facility] [id number] [facility] 14:37:00 14:37:[address] [place] [address] - [address] [facility] Medicine l Medicine Outpati ent Clinics 2019-06-30 2019-06-30 [facility] [id number] 14:00:00 14:00:[address] [place] [address] - [address] [facility] Medicine l Medicine Outpati ent Clinics 2019-06-22 2019-06-22 [facility] [id number] 16:34:00 16:34:[address] - [address] [facility] Medicine Outpati ent Clinics 2019-06-02 2019-06-02 [facility] [id number] 13:00:00 13:00:[address] [place] [address] - [address] [facility] Medicine Medicine Outpati ent Clinics 2019-03-31 2019-03-31 [facility] [id number] 13:40:00 13:40:[address] [place] [address] - [address] [facility] Medicine Medicine Outpati ent Clinics 2019-03-01 2019-03-01 [facility] [id number] 10:00:00 10:00:00 [place] [employer] [place] [facility] - Drive [facility] Medicine l Medicine Outpati ent Clinics 2019-02-20 2019-02-20 [facility] [id number] 10:00:00 10:00:[address] [place] [address] - [address] [facility] Medicine l Medicine Outpati ent Clinics 2019-02-14 2019-02-14 [facility] [id number] 09:40:00 09:40:[address] [place] [address] - [address] [facility] l Medicine Outpati ent Clinics 2019-02-07 2019-02-07 [facility] [id number] 11:20:00 11:20:[address] [place] [address] - Drive [facility] Medicine Medicine Outpati ent Clinics 2019-01-05 2019-01-05 [facility] [id number] [facility] 15:15:00 15:15:00 t Specialty/U Brigette kes - Specialty [facility]Urology Clinic l Clinic Outpati ent Clinics 2018-12-15 2018-12-15 [facility] [id number] 15:15:00 15:15:00 t Specialty/U Brigette kes - Specialty rology Memori a /Urology Clinic l Clinic Outpati ent Clinics 2018-12-01 2018-12-01 [facility] [id number] 09:48:00 09:48:00 t [facility] 2018-11-29 2018-11-29 [facility] [id number] 11:00:00 11:00:00 t Urgent [facility] - Care Clinic [facility] Clinic l Outpati ent Clinics 2018-05-15 2018-05-15 [facility] [id number] 17:51:00 17:51:[address] [place] [address] - Drive [facility] Medicine l Medicine Outpati ent Clinics 2018-05-03 2018-05-03 [facility] [id number] 15:05:00 15:05:[address] [place] [address] - Drive [facility] Medicine l Medicine Outpati ent Clinics 2018-05-03 2018-05-03 [facility] [id number] 08:50:00 08:50:[address] [place] [address] - Drive [facility] Medicine l Medicine Outpati ent Clinics 2018-04-29 2018-04-29 [facility] [id number] 10:30:00 10:30:[address] [place] - Drive [facility] l Medicine Outpati ent Clinics 2018-04-01 2018-04-01 [facility] [id number] [facility] 14:19:00 14:19:[address] [place] [address] - Drive [facility] Medicine l Medicine Outpati ent Clinics 2018-04-01 2018-04-01 [facility] [id number] [facility] 11:15:00 11:15:00 [place] [facility] Medicine Outpati ent Clinics Results This patient has no known results.
[2020-09-11] MEDS ORDERED: LEVALBUTEROL 1.25 MG/3 ML NEB ONE (16:59)
--- NOTE | 2020-09-11 17:26 | RAD REPORT ---
EXAM DESCRIPTION: Lance Single View09/11/2020 5:06 pm CLINICAL HISTORY: Shortness of breath COMPARISON: August 2020 FINDINGS: The lungs appear clear of acute infiltrate. The heart is normal size IMPRESSION: No acute abnormalities displayed
[2020-09-11 17:33] LABS: Absolute Lymphocytes (CBC) 4.2 K/uL (0.7-4.9); Basophils % 0.4 % (0-1.3); Hematocrit 41.9 % (36.0-45.0); Lymphocytes % 39.9 % (15.3-44.8); MPV 7.8 fL (7.6-11.3); RBC Red Blood Cell Count 5.05 M/uL (3.86-4.86)
[2020-09-11 17:34] LABS: Protime INR 0.96
[2020-09-11 17:52] LABS: ALT/SGPT 40 U/L (12-78); Albumin 3.5 g/dL (3.4-5.0); Alkaline Phosphatase 115 U/L (45-117); BUN Blood Urea Nitrogen 25 mg/dL (7-18); Bicarbonate 27 mmol/L (21-32); Bilirubin Direct < 0.1 mg/dL (0-0.2); Bilirubin Total 0.2 mg/dL (0.2-1.0); Glucose Level 134 mg/dL (74-106); NT PRO-BNP 46 pg/mL (<125); Sodium Level 140 mmol/L (136-145); Troponin (Emerg Dept Use Only) < 0.02 ng/mL (0.0-0.045)
[2020-09-11 17:53] LABS: AST/SGOT 27 U/L (15-37); Magnesium 2.2 mg/dL (1.8-2.4); Potassium 4.2 mmol/L (3.5-5.1)
--- NOTE | 2020-09-11 18:38 | ER ---
Nurse's Notes [facility] Name: Tete Hinkle Age: 49 yrs Sex: Female : 1970 Arrival Date: 09/11/2020 Time: 14:21 Bed 24 Private MD: Shila Nathan Diagnosis: Acute upper respiratory infection, unspecified Presentation: 09/11 14:34 Chief complaint: Patient states: SOB with exertion continues since her last visit here ll1 09/02/20. Covid was negative. Got slightly better when on prednisone. Coronavirus screen: Client denies travel out of the [place] in the last 14 days. congestion, cough unrelated to allergies, diarrhea, difficulty breathing, fatigue, headache, muscle pain, nausea, runny nose, shortness of breath, loss of taste or smell, Client presents with at least one sign or symptom that may indicate coronavirus-19. Standard/surgical mask placed on the client. The client reports previous COVID testing was negative. Ebola Screen: Patient denies travel to an Ebola-affected area in the 21 days before illness onset. Initial Sepsis Screen: Does the patient meet any 2 criteria? No. Patient's initial sepsis screen is negative. Does the patient have a suspected source of infection? Yes: Productive cough/pneumonia. Risk Assessment: Do you want to hurt yourself or someone else? Patient reports no desire to harm self or others. Onset of symptoms was September 02, 2020. 14:34 Method Of Arrival: Ambulatory ll1 14:34 Acuity: DEANDRA 3 ll1 Triage Assessment: 15:58 Respiratory: the patient has mild shortness of breath. 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 - Social history:: Smoking status: Patient denies any tobacco usage or history of. Screenin:58 Abuse screen: Denies threats or abuse. Nutritional screening: No deficits noted. vg1 Tuberculosis screening: No symptoms or risk factors identified. Fall Risk No fall in past 12 months (0 pts). No secondary diagnosis (0 pts). IV access (20 points). Ambulatory Aid- None/Bed Rest/Nurse Assist (0 pts). Gait- Normal/Bed Rest/Wheelchair (0 pts) Mental Status- Oriented to own ability (0 pts). Total Villavicencio Fall Scale indicates No Risk (0-24 pts). Assessment: 15:57 General: Appears in no apparent distress. comfortable, Behavior is calm, cooperative. vg1 Pain: Denies pain. Neuro: Level of Consciousness is awake, alert, obeys commands, Oriented to person, place, time, situation. Cardiovascular: Patient's skin is warm and dry. Respiratory: Airway is patent Respiratory effort is even, unlabored, Respiratory pattern is regular, symmetrical, Breath sounds are clear bilaterally. Respiratory: Reports pain with respiration. GI: Reports diarrhea, nausea. : No signs and/or symptoms were reported regarding the genitourinary system. EENT: No signs and/or symptoms were reported regarding the EENT system. Derm: Skin is intact, is healthy with good turgor. Musculoskeletal: Circulation, motion, and sensation intact. 17:23 Reassessment: Patient appears in no apparent distress at this time. Patient and/or vg1 family updated on plan of care and expected duration. Pain level reassessed. Patient is alert, oriented x 3, equal unlabored respirations, skin warm/dry/pink. Vital Signs: 14:34 BP 107 / 71; Pulse 72; Resp 18; Temp 97.3; Pulse Ox 98% ; Weight 113.4 kg; Height 5 ft. ll1 3 in. (160.02 cm); Pain 7/10; 15:58 BP 139 / 70; Pulse 73; Resp 20; Pulse Ox 98% on R/A; vg1 17:00 BP 142 / 55; Pulse 80; Resp 18; Pulse Ox 98% on R/A; vg1 18:30 BP 153 / 80; Pulse 84; Resp 22; Pulse Ox 97% on R/A; vg1 19:30 BP 147 / 77; Pulse 80; Resp 22; Pulse Ox 98% on R/A; vg1 14:34 Body Mass Index 44.29 (113.40 kg, 160.02 cm) ll1 ED Course: 14:21 Patient arrived in ED. mr 14:21 Shila Nathan MD is Private Physician. mr 14:33 Arm band placed on. ll1 14:38 Triage completed. ll1 15:32 Scott Boyle PA is PHCP. [facility] 15:32 Arturo Santiago MD is Attending Physician. m 15:48 Yvonne Parekh, RN is Primary Nurse. vg1 15:58 Patient has correct armband on for positive identification. Placed in gown. Bed in low vg1 position. Call light in reach. Side rails up X 1. 16:26 COVID swab sent to lab. vg1 16:34 EKG done. vg1 16:37 Initial lab(s) drawn, by me, sent to lab. Missed attempt(s): 20 gauge in right hand. 22 jp3 gauge in left forearm. Bleeding controlled, band aid applied, catheter tip intact. Patient maintains SpO2 saturation greater than 95% on room air. 17:06 XRAY Chest (1 view) In Process Unspecified. EDMS 17:23 Lab(s) recollected, by me, sent to lab. Inserted saline lock: 22 gauge in right vg1 forearm, using aseptic technique. Blood collected. 17:32 D-Dimer Sent. sv 17:33 Basic Metabolic Panel Sent. sv 18:37 Shila Nathan MD is Referral Physician. jmm 19:13 Removal of peripheral IV. Catheter intact, dressing applied. jp3 19:37 No provider procedures requiring assistance completed. IV discontinued, intact, vg1 bleeding controlled, No redness/swelling at site. Pressure dressing applied. Administered Medications: 16:49 Drug: Xopenex (3) 1.25 mg Route: Inhalation; vg1 Outcome: 18:37 Discharge ordered by . [facility] 19:37 Discharged to home ambulatory. vg1 19:37 Condition: stable 19:37 Discharge instructions given to patient, Instructed on discharge instructions, follow up and referral plans. medication usage, Demonstrated understanding of instructions, follow-up care, medications, Prescriptions given X 1. 19:37 Patient left the ED. vg1 Addendum: 09/13/2020 19:15 Addendum: COVID-19 Result: Negative result given to RN to notify pt. Notified pt of s g negative COVID 19 swab results. Pt advised that even with a negative test result they should remain in isolation until symptom free for 3 days without medication. Pt also advised to return to the ED for worsening symptoms. Signatures: Dispatcher [employer] Inocencia Ramírez, RN RN sv Yahir Burns, RN RN sg Scott Boyle PA PA jmm Rivera, Mary mr Alexandro, Roel foster3 Yvonne Parekh RN RN vg1 Andie Melo RN RN ll1
--- NOTE | 2020-09-11 18:38 | EDPHYS ---
Physician Documentation [facility] Name: Tete Hinkle Age: 49 yrs Sex: Female : 1970 Arrival Date: 09/11/2020 Time: 14:21 Bed 24 Private MD: Shila Nathan ED Physician Arturo Santiago HPI: 09/11 15:52 This 49 yrs old Female presents to ER via Ambulatory with complaints of jmm Breathing Difficulty. 15:52 The patient has shortness of breath with light activity. Onset: The symptoms/episode jmm began/occurred gradually, 10 day(s) ago. Duration: The symptoms are intermittent. The patient's shortness of breath is aggravated by nothing, is alleviated by nothing. Associated signs and symptoms: Pertinent positives: non-productive cough. This is a 49 year old female with a history of HLP, HTN that presents to the ED with complaints of cough, sob. Evaluated in the ED and prescribed prednisone with minimal improvement. patient continues to have sob, cough. No sore throat. . 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 - Social history:: Smoking status: Patient denies any tobacco usage or history of. ROS: 15:52 Constitutional: Positive for fatigue. jmm 15:52 Cardiovascular: Negative for chest pain. 15:52 Respiratory: Positive for shortness of breath. 15:52 All other systems are negative. Exam: 15:52 Constitutional: This is a well developed, well nourished patient who is awake, alert, jmm and in no acute distress. Head/Face: atraumatic. Eyes: EOMI, no conjunctival erythema appreciated ENT: Moist Mucus Membranes Neck: Trachea midline, Supple Chest/axilla: Normal chest wall appearance and motion. Cardiovascular: Regular rate and rhythm. No edema appreciated Respiratory: Normal respirations, no respiratory distress appreciated Abdomen/GI: Non distended, soft Back: Normal ROM Skin: General appearance color normal MS/ Extremity: Moves all extremities, no obvious deformities appreciated, no edema noted to the lower extremities Neuro: Awake and alert, normal gait Psych: Behavior is normal, Mood is normal, Patient is cooperative and pleasant 16:38 ECG was reviewed by the Attending Physician. [facility] Vital Signs: 14:34 BP 107 / 71; Pulse 72; Resp 18; Temp 97.3; Pulse Ox 98% ; Weight 113.4 kg; Height 5 ft. ll1 3 in. (160.02 cm); Pain 7/10; 15:58 BP 139 / 70; Pulse 73; Resp 20; Pulse Ox 98% on R/A; vg1 17:00 BP 142 / 55; Pulse 80; Resp 18; Pulse Ox 98% on R/A; vg1 18:30 BP 153 / 80; Pulse 84; Resp 22; Pulse Ox 97% on R/A; vg1 19:30 BP 147 / 77; Pulse 80; Resp 22; Pulse Ox 98% on R/A; vg1 14:34 Body Mass Index 44.29 (113.40 kg, 160.02 cm) ll1 MDM: 15:52 Patient medically screened. [facility] 18:34 Data reviewed: vital signs, nurses notes. Counseling: I had a detailed discussion with [facility] the patient and/or guardian regarding: the historical points, exam findings, and any diagnostic results supporting the discharge/admit diagnosis, lab results, radiology results, the need for outpatient follow up, to return to the emergency department if symptoms worsen or persist or if there are any questions or concerns that arise at home. ED course: Patient is alert and non toxic in appearance in the ED. No signs of resp distress. patient is advised to follow up with pcp and otherwise given strict return precautions. Patient understood and agrees with the plan of care. . 09/11 16:07 Order name: Basic Metabolic Panel [facility] 09/11 16:07 Order name: CBC with Diff; Complete Time: 18:01 [facility] 09/11 16:07 Order name: LFT's; Complete Time: 18:01 [facility] 09/11 16:07 Order name: Magnesium; Complete Time: 18:01 [facility] 09/11 16:07 Order name: NT PRO-BNP; Complete Time: 18:01 [facility] 09/11 16:07 Order name: PT-INR; Complete Time: 18:01 [facility] 09/11 16:07 Order name: Troponin (emerg Dept Use Only); Complete Time: 18:01 [facility] 09/11 16:07 Order name: XRAY Chest (1 view); Complete Time: 17:40 [facility] 09/11 16:07 Order name: EKG; Complete Time: 16:08 [facility] 09/11 16:07 Order name: Basic Metabolic Panel; Complete Time: 18:01 [facility] 02 16:09 Order name: COVID-19 : Document "Date of Symptom Onset" if Symptomatic. [facility] 09/11 16:11 Order name: D-Dimer [facility] 09/11 16:12 Order name: D-Dimer; Complete Time: 18:04 [facility] 02 16:07 Order name: Cardiac monitoring; Complete Time: 16:34 [facility] 09/11 16:07 Order name: EKG - Nurse/Tech; Complete Time: 16:34 [facility] 09/11 16:07 Order name: IV Saline Lock; Complete Time: 17:23 [facility] 09/11 16:07 Order name: Labs collected and sent; Complete Time: 16:38 [facility] 09/11 16:07 Order name: O2 Per Protocol; Complete Time: 16:25 [facility] 09/11 16:07 Order name: O2 Sat Monitoring; Complete Time: 16:25 jm EC:38 Rate is 64 beats/min. Rhythm is regular. QRS [place] is Normal. CT interval is normal. QRS jmm interval is normal. QT interval is normal. No Q waves. T waves are Normal. No ST changes noted. Reviewed by me. Administered Medications: 16:49 Drug: Xopenex (3) 1.25 mg Route: Inhalation; vg1 Disposition: 09/12 06:02 Co-signature as Attending Physician, Arturo Santiago MD I agree with the assessment and kdr plan of care. Disposition: 09/11/20 18:37 Discharged to Home. Impression: Acute upper respiratory infection, unspecified. - Condition is Stable. - Discharge Instructions: Upper Respiratory Infection, Adult. - Prescriptions for Albuterol Sulfate 90 mcg/actuation Inhalation - inhale 1-2 puff by INHALATION route every 4-6 hours add aerochamber; 1 Inhaler. - Medication Reconciliation Form, Thank You Letter, Antibiotic Education, Prescription Opioid Use form. - Follow up: Shila Nathan MD; When: 2 - 3 days; Reason: Recheck today's complaints, Continuance of care, Re-evaluation by your physician. - Notes: Please take 1000 mg of NAC three times a day to helped with breathing. Take albuterol inhaler as needed for shortness of breath. Please return to the ED if your symptoms worsen. Signatures: Dispatcher [employer] EDMS Arturo Santiago MD MD kdr Mickail, Joel, PA PA jmm Garcia, Victoria RN RN vg1 Andie Melo RN RN ll1 Corrections: (The following items were deleted from the chart) 09/11 19:37 18:37 09/11/2020 18:37 Discharged to Home. Impression: Acute upper respiratory vg1 infection, unspecified. Condition is Stable. Forms are Medication Reconciliation Form, Thank You Letter, Antibiotic Education, Prescription Opioid Use. Follow up: Shila Nathan; When: 2 - 3 days; Reason: Recheck today's complaints, Continuance of care, Re-evaluation by your physician. sara
[2020-09-11 20:11] VITALS: TEMP 97.3
[2020-09-11 20:14] VITALS: BP 147/77; O2SAT 98
== END 2020-09-11 19:37 | disposition home or self-care (01) ==
LOC: ER 14:17
DX: J06.9 Acute upper respiratory infection, unspecified (principal); Z20.822 Contact with and (suspected) exposure to COVID-19; I10 Essential (primary) hypertension
CPT/HCPCS: 36415; 71045; 80048; 80076; 83735; 83880; 84484; 85025; 85379; 85610; 93005; 99285; U0002

== ENCOUNTER 2021-02-25 13:52 | Emergency (ER) | payer OTHER ==
--- OUTSIDE RECORDS SUMMARY | 2021-02-25 13:55 | XMS REPORT | Continuity of Care Document ---
:1970 Author Organization [facility] t Address [address] [place] [address] Care Team Providers Name Role Phone Unavailable [...] nostril [facility] Zofran Zofran Yes [facility] Meclizine Meclizine Yes Chuy as [facility] HCl HCl Thomas directed [facility] ent Clinics Duloxetine Duloxetine Yes Chuy [address] [facility] [address] HCl HCl [facility] ent [facility] Cetirizine Cetirizine Yes Chuy [address] [facility] [address] HCl HCl [facility] ent [facility] Montelukast Montelukast Yes Chuy [address] [facility] [address] Sodium Sodium [facility] in the [facility] Metoprolol Metoprolol Yes Chuy [address] [facility] [address] Tartrate Tartrate Thomas with food L [facility] ent [facility] Metronidazo Metronidazo Yes Chuy [address] [facility] [address] [facility] Immunizations Ordered Filled Immunization Date Status Comments Sour e Immunization Name Name Flucelvax - Flucelvax - 2019-06-[address] [facility] - multidose vial multidose vial 00:00:00 [facility] Out[facility] Procedures This patient has no known procedures. Encounters Start End Encounter Admission Attending Care Care Encounter Source Date/Time Date/Time Type Type Clinicians Facility Department ID 2020-11-07 2020-11-07 Outpatient [facility] [id number] [facility] 2020-11-05 2020-11-05 Outpatient [facility] [id number] [facility] 2020-10-24 2020-10-24 [facility] [id number] [facility] 2020-10-24 2020-10-24 Outpatient [facility] [id number] [facility] 2020-05-31 2020-05-31 Outpatient [facility] [id number] [facility] 2020-03-11 2020-03-11 [facility] [id number] 15:43:00 15:43:00 t [employer] [facility] Medicine l Medicine Outpati ent Clinics 2020-03-08 2020-03-08 [facility] [id number] 13:45:00 13:45:00 t [employer] [facility] Medicine l Medicine Outpati ent Clinics 2020-03-07 2020-03-07 [facility] [id number] 17:22:00 17:22:00 t [employer] [facility] Medicine l Medicine Outpati ent Clinics 2020-03-07 2020-03-07 [facility] [id number] 16:40:00 16:40:00 t [employer] [facility] Medicine l Medicine Outpati ent Clinics 2020-03-06 2020-03-06 [facility] [id number] 11:04:00 11:04:00 [facility] [employer] [facility] Medicine l Medicine Outpati ent Clinics 2020-02-20 2020-02-20 [facility] [id number] 10:00:00 10:00:00 [facility] [employer] [facility] [employer] [facility] Medicine l Medicine Outpati ent Clinics 2020-02-19 2020-02-19 [facility] [id number] 08:56:00 08:56:00 t [facility] Medicine l Medicine Outpati ent Clinics 2019-12-11 2019-12-11 [facility] [id number] 10:21:00 10:21:00 t [facility] [employer] [facility] [employer] [facility] Medicine l Medicine Outpati ent Clinics 2019-12-08 2019-12-08 [facility] [id number] 13:15:00 13:15:00 t [employer] [facility] Medicine l Medicine Outpati ent Clinics 2019-12-07 2019-12-07 [facility] [id number] 10:11:00 10:11:00 t [employer] [facility] Medicine l Medicine Outpati ent Clinics 2019 2019 [facility] [id number] [facility] 16:00:00 16:00:00 t [employer] [facility] Medicine l Medicine Outpati ent Clinics 2019-11-22 2019-11-22 [facility] [id number] 08:28:00 08:28:00 t [employer] [facility] Medicine l Medicine Outpati ent Clinics 2019-11-21 2019-11-21 [facility] [id number] 09:00:00 09:00:00 t [employer] [facility] Medicine l Medicine Outpati ent Clinics 2019-08-22 2019-08-22 [facility] [id number] 16:20:00 16:20:00 t [employer] [facility] Medicine l Medicine Outpati ent Clinics 2019-08-08 2019-08-08 [facility] [id number] 14:37:00 14:37:00 t [employer] [facility] Medicine l Medicine Outpati ent Clinics 2019-06-30 2019-06-30 [facility] [id number] 14:00:00 14:00:00 t [employer] [facility] Medicine l Medicine Outpati ent Clinics 2019-06-22 2019-06-22 [facility] [id number] 16:34:00 16:34:00 t [employer] [facility] Medicine l Medicine Outpati ent Clinics 2019-06-02 2019-06-02 [facility] [id number] 13:00:00 13:00:00 t [employer] [facility] Medicine l Medicine Outpati ent Clinics 2019-03-31 2019-03-31 [facility] [id number] 13:40:00 13:40:00 t [employer] [facility] Medicine l Medicine Outpati ent Clinics 2019-03-01 2019-03-01 [facility] [id number] 10:00:00 10:00:00 t [employer] [facility] Medicine Medicine Outpati ent Clinics 2019-02-20 2019-02-20 [facility] [id number] 10:00:00 10:00:00 t [employer] [facility] Medicine Outpati ent Clinics 2019-02-14 2019-02-14 [facility] [id number] 09:40:00 09:40:00 t [employer] [facility] Medicine Outpati ent Clinics 2019-02-07 2019-02-07 [facility] [id number] 11:20:00 11:20:00 t [employer] [facility] Medicine Outpati ent Clinics 2019-01-05 2019-01-05 [facility] [id number] 15:15:00 15:15:00 t Specialty/U Brigette kes - Specialty rology Memori a /Urology Clinic l Clinic Outpati ent Clinics 2018-12-15 2018-12-15 [facility] [id number] [facility] 15:15:00 15:15:00 t Specialty/U Brigette kes - Specialty rology Memori a /Urology Clinic l Clinic Outpati ent Clinics 2018-12-01 2018-12-01 [facility] [id number] 09:48:00 09:48:00 t [facility] - Care [facility] Clinic l Outpati ent Clinics 2018-11-29 2018-11-29 [facility] [id number] 11:00:00 11:00:00 t [facility] Clinic l Outpati ent Clinics 2018-05-15 2018-05-15 [facility] [id number] 17:51:00 17:51:00 t [employer] [facility] Medicine Outpati ent Clinics 2018-05-03 2018-05-03 [facility] [id number] [facility] 15:05:00 15:05:00 t [employer] [facility] Medicine Outpati ent Clinics 2018-05-03 2018-05-03 [facility] [id number] 08:50:00 08:50:00 t [employer] [facility] Medicine Outpati ent Clinics 2018-04-29 2018-04-29 [facility] [id number] 10:30:00 10:30:00 t [employer] [facility] Medicine Outpati ent Clinics 2018-04-01 2018-04-01 [facility] [id number] 14:19:00 14:19:00 t [employer] [facility] Medicine Outpati ent Clinics 2018-04-01 2018-04-01 [facility] [id number] 11:15:00 11:15:00 t [employer] [facility] ent Clinics Results This patient has no known results.
[2021-02-25 14:54] LABS: Urine Blood Trace-intact (Negative); Urine Glucose Negative (Negative); Urine Protein 2+ (Negative)
[2021-02-25] MEDS ORDERED: ONDANSETRON 4 MG/2 ML VIAL ONE (15:03)
[2021-02-25 15:07] LABS: Basophils % 0.7 % (0-1.3); Hematocrit 40.9 % (36.0-45.0); Lymphocytes % 31.8 % (15.3-44.8); RBC Red Blood Cell Count 4.97 M/uL (3.86-4.86)
[2021-02-25 15:24] LABS: ALT/SGPT 29 U/L (12-78); AST/SGOT 18 U/L (15-37); Albumin 3.6 g/dL (3.4-5.0); Alkaline Phosphatase 141 U/L (45-117); BUN Blood Urea Nitrogen 15 mg/dL (7-18); Bicarbonate 27 mmol/L (21-32); Bilirubin Direct < 0.1 mg/dL (0-0.2); Bilirubin Total 0.4 mg/dL (0.2-1.0); Glucose Level 90 mg/dL (74-106); Lipase 106 U/L (73-393); Potassium 4.1 mmol/L (3.5-5.1); Sodium Level 138 mmol/L (136-145)
--- NOTE | 2021-02-25 15:29 | RAD REPORT ---
EXAM DESCRIPTION: CT - Stone Protocol - 02/25/2021 3:05 pm CLINICAL HISTORY: Abdominal pain. COMPARISON: 2019 TECHNIQUE: Computed axial tomography of the abdomen pelvis was obtained without oral or IV contrast. Lack of IV and oral contrast limits evaluation of solid organs, bowel, and vessels. Coronal reformat dario images were obtained and reviewed. All CT scans are performed using dose optimization technique as appropriate and may include automated exposure control or mA/KV adjustment according to patient size. FINDINGS: A renal calculus is not seen. An ureteral calculus is not noted. A bladder calculus is not present. The liver, spleen, pancreas and adrenals appear grossly normal Postsurgical changes involve colon. At descending colon/sigmoid anastomotic site the proximal colon i s dilated with stool measuring 6.1 centimeters. No evidence of diverticulitis. No adnexal mass Laxity abdominal wall IMPRESSION: Negative for a genitourinary calculus Mild dilatation of proximal colon the descending colon/sigmoid anastomotic site. The colon is distend ed with stool this level.
[2021-02-25] MEDS ORDERED: MORPHINE 4 MG/ML SYR ONE (15:38)
--- NOTE | 2021-02-25 16:52 | ER ---
Nurse's Notes [facility] Name: Tete Hinkle Age: 50 yrs Sex: Female : 1970 Arrival Date: 02/25/2021 Time: 13:54 Bed 15 Private MD: Shila Nathan Diagnosis: Abdominal pain, unspecified;Abdominal pain, Generalized;Constipation;Bowel Stricture Presentation: 02/25 14:13 Chief complaint: Patient states: Chills and R flank pain since Wednesday, denies N/V/D ph or urinary problems. Coronavirus screen: Client denies travel out of the [place] in the last 14 days. At this time, the client does not indicate any symptoms associated with coronavirus-19. Ebola Screen: No symptoms or risks identified at this time. Initial Sepsis Screen: Does the patient meet any 2 criteria? No. Patient's initial sepsis screen is negative. Does the patient have a suspected source of infection? No. Patient's initial sepsis screen is negative. Risk Assessment: Do you want to hurt yourself or someone else? Patient reports no desire to harm self or others. Onset of symptoms was February 25, 2021. 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 - Social history:: Smoking status: Patient denies any tobacco usage or history of. Screenin:25 Abuse screen: Denies threats or abuse. Nutritional screening: No deficits noted. Fall tw2 Risk None identified. 14:26 Tuberculosis screening: No symptoms or risk factors identified. tw2 Assessment: 14:20 General: Appears in no apparent distress. obese, well groomed, Behavior is calm, tw2 cooperative, appropriate for age. Pain: Complains of pain in right sided pain. Neuro: Level of Consciousness is awake, alert, obeys commands, Oriented to person, place, time, situation. Cardiovascular: Patient's skin is warm and dry. Respiratory: Airway is patent Respiratory effort is even, unlabored, Respiratory pattern is regular, symmetrical. GI: Reports nausea. : No signs and/or symptoms were reported regarding the genitourinary system. EENT: No signs and/or symptoms were reported regarding the EENT system. Derm: No signs and/or symptoms reported regarding the dermatologic system. Musculoskeletal: Range of motion: intact in all extremities. 14:28 Reassessment: provider at bedside at this time. tw2 15:26 Reassessment: No changes from previously documented assessment. Patient and/or family tw2 updated on plan of care and expected duration. Pain level reassessed. Patient is alert, oriented x 3, equal unlabored respirations, skin warm/dry/pink. 16:14 Reassessment: No changes from previously documented assessment. Patient and/or family tw2 updated on plan of care and expected duration. Pain level reassessed. Patient is alert, oriented x 3, equal unlabored respirations, skin warm/dry/pink. provider at bedside at this time. 16:14 Reassessment: No changes from previously documented assessment. Patient and/or family tw2 updated on plan of care and expected duration. Pain level reassessed. Patient is alert, oriented x 3, equal unlabored respirations, skin warm/dry/pink. 17:04 Reassessment: Patient appears in no apparent distress at this time. No changes from tw2 previously documented assessment. Patient and/or family updated on plan of care and expected duration. Pain level reassessed. Patient is alert, oriented x 3, equal unlabored respirations, skin warm/dry/pink. Vital Signs: 14:13 BP 151 / 73; Pulse 60; Resp 18; Temp 97.3; Pulse Ox 97% on R/A; Weight 113.4 kg; Height ph 5 ft. 3 in. (160.02 cm); Pain 8/10; 15:26 BP 144 / 63; Pulse 50; Resp 17; Pulse Ox 95% on R/A; tw2 17:04 BP 153 / 69; Pulse 52; Resp 17; Pulse Ox 99% on R/A; tw2 14:13 Body Mass Index 44.29 (113.40 kg, 160.02 cm) ph ED Course: 13:54 Patient arrived in ED. ds1 13:54 Shila Nathan MD is Private Physician. ds1 14:08 Arturo Santiago MD is Attending Physician. kdr 14:15 Triage completed. ph 14:16 Arm band placed on Patient placed in an exam room. ph 14:17 Bed in low position. Call light in reach. Pulse ox on. NIBP on. tw2 14:25 Layne Gauthier, RN is Primary Nurse. tw2 14:30 Inserted saline lock: 20 gauge in right antecubital area, using aseptic technique. tw2 Blood collected. 14:39 Basic Metabolic Panel Sent. tw2 15:04 CT Stone Protocol In Process Unspecified. EDMS 16:50 Shila Nathan MD is Referral Physician. kdr 17:04 No provider procedures requiring assistance completed. IV discontinued, intact, tw2 bleeding controlled, No redness/swelling at site. Pressure dressing applied. Administered Medications: 14:43 Drug: Zofran (Ondansetron) 4 mg Route: IVP; Site: right antecubital; tw2 15:20 Follow up: Response: No adverse reaction tw2 15:20 Drug: morphine 4 mg {Note: rass 0.} Route: IVP; Site: right antecubital; tw2 16:32 Follow up: Response: No adverse reaction; Pain is decreased; RASS: Alert and Calm (0) tw2 Outcome: 16:51 Discharge ordered by . kdr 17:05 Discharged to home ambulatory, with significant other. tw2 17:05 Condition: stable 17:05 Discharge instructions given to patient, significant other, Instructed on discharge instructions, follow up and referral plans. medication usage, Demonstrated understanding of instructions, follow-up care, medications, Prescriptions given X 2. 17:05 Patient left the ED. tw2 Signatures: Dispatcher [employer] EDWI Arturo Santiago MD MD [facility] Rebecca Casey ds1 Tammi Javed RN RN Layne Gauthier RN RN tw2
--- NOTE | 2021-02-25 16:52 | EDPHYS ---
Physician Documentation [facility] Name: Tete Hinkle Age: 50 yrs Sex: Female : 1970 Arrival Date: 02/25/2021 Time: 13:54 Bed 15 Private MD: Shila Nathan ED Physician Arturo Santiago HPI: 02/25 18:48 This 50 yrs old Female presents to ER via Ambulatory with complaints of kdr R Side Pain. 18:48 The patient presents with abdominal pain Right flank. Onset: The symptoms/episode kdr began/occurred gradually, 3 day(s) ago. The symptoms do not radiate. Associated signs and symptoms: none. The symptoms are described as achy, constant, crampy, steady. Severity of pain: At its worst the pain was mild moderate in the emergency department the pain has improved mildly. The patient has not experienced similar symptoms in the past. The patient has not recently seen a physician. RN PATIENT SERVICES: 14:28 LMP N/A - tw2 Historical: - Allergies: 14:15 NKDA; ph - Home Meds: 14:15 losartan Oral [Active]; Metoprolol Tartrate Oral [Active]; rosuvastatin Oral [Active]; ph Zyrtec Oral [Active]; - PMHx: 14:15 Asthma; Diabetes - NIDDM; Diverticulitis; Hyperlipidemia; Hypertension; ph - Immunization history:: Client reports receiving the 2nd dose of the Covid vaccine. - Social history:: Smoking status: Patient denies any tobacco usage or history of. ROS: 18:48 Constitutional: Negative for fever, chills, and weight loss, Eyes: Negative for injury, kdr pain, redness, and discharge, Neck: Negative for injury, pain, and swelling, Cardiovascular: Negative for chest pain, palpitations, and edema, Respiratory: Negative for shortness of breath, cough, wheezing, and pleuritic chest pain, Abdomen/GI: Negative for abdominal pain except for right flank pain, nausea, vomiting, diarrhea, and constipation, Back: Negative for injury and pain, MS/Extremity: Negative for injury and deformity, Skin: Negative for injury, rash, and discoloration, Neuro: Negative for headache, weakness, numbness, tingling, and seizure activity. Psych: Negative for depression, anxiety, suicide ideation, homicidal ideation, and hallucinations, Allergy/Immunology: Negative for hives, rash, and allergies, Endocrine: Negative for neck swelling, polydipsia, polyuria, polyphagia, and marked weight changes, Hematologic/Lymphatic: Negative for swollen nodes, abnormal bleeding, and unusual bruising. 18:48 Abdomen/GI: Positive for abdominal pain, Negative for diarrhea, constipation, abdominal cramps, abdominal distension, black/tarry stool, rectal pain, rectal bleeding, bowel incontinence. Exam: 18:48 Constitutional: This is a well developed, well nourished patient who is awake, alert, kdr and in no acute distress. Head/Face: Normocephalic, atraumatic. Eyes: Pupils equal round and reactive to light, extra-ocular motions intact. Lids and lashes normal. Conjunctiva and sclera are non-icteric and not injected. Cornea within normal limits. Periorbital areas with no swelling, redness, or edema. Neck: Trachea midline, no thyromegaly or masses palpated, and no cervical lymphadenopathy. Supple, full range of motion without nuchal rigidity, or vertebral point tenderness. No Meningismus. Chest/axilla: Normal chest wall appearance and motion. Nontender with no deformity. No lesions are appreciated. Cardiovascular: Regular rate and rhythm with a normal S1 and S2. No gallops, murmurs, or rubs. Normal PMI, no JVD. No pulse deficits. Respiratory: Lungs have equal breath sounds bilaterally, clear to auscultation and percussion. No rales, rhonchi or wheezes noted. No increased work of breathing, no retractions or nasal flaring. Back: No spinal tenderness. No costovertebral tenderness. Full range of motion. Skin: Warm, dry with normal turgor. Normal color with no rashes, no lesions, and no evidence of cellulitis. MS/ Extremity: Pulses equal, no cyanosis. Neurovascular intact. Full, normal range of motion. Neuro: Awake and alert, GCS 15, oriented to person, place, time, and situation. Cranial nerves II-XII grossly intact. Motor strength 5/5 in all extremities. Sensory grossly intact. Cerebellar exam normal. Normal gait. Psych: Awake, alert, with orientation to person, place and time. Behavior, mood, and affect are within normal limits. 18:48 Abdomen/GI: Inspection: obese Bowel sounds: active, all quadrants, Palpation: soft, mild abdominal tenderness, in the posterior aspect of right lateral abdomen and anterior aspect of right lateral abdomen. Vital Signs: 14:13 BP 151 / 73; Pulse 60; Resp 18; Temp 97.3; Pulse Ox 97% on R/A; Weight 113.4 kg; Height ph 5 ft. 3 in. (160.02 cm); Pain 8/10; 15:26 BP 144 / 63; Pulse 50; Resp 17; Pulse Ox 95% on R/A; tw2 17:04 BP 153 / 69; Pulse 52; Resp 17; Pulse Ox 99% on R/A; tw2 14:13 Body Mass Index 44.29 (113.40 kg, 160.02 cm) ph MDM: 16:51 Patient medically screened. kdr 18:48 Data reviewed: vital signs, nurses notes, lab test result(s), radiologic studies. kdr Counseling: I had a detailed discussion with the patient and/or guardian regarding: the historical points, exam findings, and any diagnostic results supporting the discharge/admit diagnosis, lab results, radiology results, the need for outpatient follow up. Response to treatment: the patient's symptoms have mildly improved after treatment. Special discussion: Based on the patient's Hx, exam, and Dx evaluation, there is no indication for emergent surgery or inpatient Tx. It is understood by the patient/guardian that if the Sx's persist or worsen they need to return immediately for re-evaluation. ED course: Patient was discharged in good condition. She was happy with the care provided and the plan for discharge and follow-up.. 02/25 14:32 Order name: Basic Metabolic Panel tw2 02/25 14:32 Order name: CBC with Diff; Complete Time: 16:02 02/25 14:32 Order name: Hepatic Function; Complete Time: 16:02 tw02/25 14:32 Order name: Lipase; Complete Time: 16:02 tw02/25 14:33 Order name: Basic Metabolic Panel; Complete Time: 16:02 EDAR 02/25 14:53 Order name: Urine Dipstick-Ancillary; Complete Time: 16:02 [facility] 02/25 14:32 Order name: IV Saline Lock; Complete Time: 14:39 tw02/25 14:32 Order name: Labs collected and sent; Complete Time: 14:39 tw2 02/25 14:32 Order name: CT Stone Protocol; Complete Time: 16:02 tw2 02/25 14:32 Order name: Urine Dipstick-Ancillary (obtain specimen); Complete Time: 14:57 tw2 02/25 14:53 Order name: Urine --Ancillary (enter results) ak 02/25 14:54 Order name: Urine --Ancillary; Complete Time: 16:02 [facility] 02/25 14:32 Order name: Urine Test (obtain specimen); Complete Time: 14:57 tw2 Administered Medications: 14:43 Drug: Zofran (Ondansetron) 4 mg Route: IVP; Site: right antecubital; tw2 15:20 Follow up: Response: No adverse reaction tw2 15:20 Drug: morphine 4 mg {Note: rass 0.} Route: IVP; Site: right antecubital; tw2 16:32 Follow up: Response: No adverse reaction; Pain is decreased; RASS: Alert and Calm (0) tw2 Disposition Summary: 02/25/21 16:51 Discharge Ordered Location: Home kdr Problem: new kdr Symptoms: have improved kdr Condition: Stable kdr Diagnosis - Abdominal pain, unspecified kdr - Abdominal pain, Generalized kdr - Constipation kdr - Bowel Stricture kdr Followup: kdr - With: Shila Nathan MD - When: 2 - 3 days - Reason: If symptoms return, Further diagnostic work-up, Recheck today's complaints, Continuance of care, Re-evaluation by your physician Discharge Instructions: - Discharge Summary Sheet kdr - Pain Without a Known Cause kdr - Constipation, Adult, [id number] kdr - Abdominal Pain, Adult, [id number] kdr Forms: - Medication Reconciliation Form kdr - Thank You Letter kdr - Work release form tw2 Prescriptions: - Dulcolax (bisacodyl) 5 mg Oral tablet,delayed release (DR/EC) - take 2 tablet by ORAL route once daily; 20 tablet; Refills: 0, Product kdr Selection Permitted - Miralax 17 gram Oral powder in packet - take 1 packet by ORAL route once daily; 1 box; Refills: 0, Product Selection kdr Permitted Signatures: Dispatcher [employer] Arturo France MD MD kdr Tammi Javed RN RN Gauthier, Layne, RN RN tw2
[2021-02-25 18:21] VITALS: TEMP 97.3
[2021-02-25 18:24] VITALS: BP 153/69; O2SAT 99
== END 2021-02-25 17:05 | disposition home or self-care (01) ==
LOC: ER 13:52
DX: K59.00 Constipation, unspecified (principal); K56.609 Unspecified intestinal obstruction, unspecified as to partial versus complete obstruction; I10 Essential (primary) hypertension; E11.9 Type 2 diabetes mellitus without complications
CPT/HCPCS: 85025; 80048; 36415; 81025; 80076; 81003; 83690; 76377; 74176; J2405; 96374; 96375; 99284

== ENCOUNTER 2021-04-30 15:12 | Emergency (ER) | payer OTHER ==
[2021-04-30 16:47] LABS: Basophils % 0.7 % (0-1.3); Hematocrit 41.1 % (36.0-45.0); Lymphocytes % 42.2 % (15.3-44.8); MPV 7.7 fL (7.6-11.3); RBC Red Blood Cell Count 5.02 M/uL (3.86-4.86)
[2021-04-30 17:42] LABS: ALT/SGPT 32 U/L (12-78); AST/SGOT 22 U/L (15-37); Albumin 3.7 g/dL (3.4-5.0); Alkaline Phosphatase 111 U/L (45-117); BUN Blood Urea Nitrogen 15 mg/dL (7-18); Bicarbonate 28 mmol/L (21-32); Bilirubin Direct < 0.1 mg/dL (0-0.2); Bilirubin Total 0.3 mg/dL (0.2-1.0); Glucose Level 92 mg/dL (74-106); Lipase 167 U/L (73-393); Potassium 4.3 mmol/L (3.5-5.1); Protein, Total 7.8 g/dL (6.4-8.2); Sodium Level 139 mmol/L (136-145)
[2021-04-30] MEDS ORDERED: CEFTRIAXONE/SWI 1gm 1 GM/10 ML SYR ONE ×2 (19:29→19:44)
[2021-04-30] MEDS ORDERED: ONDANSETRON 4 MG/2 ML VIAL ONE (19:29)
[2021-04-30] MEDS ORDERED: METRONIDAZOLE 500mg IVPB 500 MG/100 ML BAG IV ONE (19:29)
[2021-04-30] MEDS ORDERED: HYDROMORPHONE HCL 2 MG/ML inj ONE (19:29)
--- NOTE | 2021-04-30 20:16 | RAD REPORT ---
EXAM DESCRIPTION: CTAbdomen Pelvis W Contrast - 04/30/2021 8:05 pm CLINICAL HISTORY: . ABD PAIN COMPARISON: Abdomen Pelvis W Contrast dated 11/20/2019; Abdomen Pelvis W Contrast dated 12/09/2018; Abdomen Pelvis W Contrast dated 01/29/2017; Abdomen Pelvis W Contrast dated 12/16/2016 TECHNIQUE: Biphasic CT imaging of the abdomen and pelvis was performed with 100 ml non-ionic IV cont rast. All CT scans are performed using dose optimization technique as appropriate and may include automated exposure control or mA/KV adjustment according to patient size. FINDINGS: Lower chest: No acute abnormality. Liver: No acute abnormality or suspicious lesions. Biliary: No biliary ductal dilatation. Stomach: No significant focal abnormality. Duodenum: No significant focal abnormality. Pancreas: No significant abnormality. Spleen: No significant abnormality. Adrenal: No suspicious lesions. Kidney/ureter: No hydronephrosis. No renal calculi. Retroperitoneum: No retroperitoneal adenopathy. Vascular: No aneurysm. Bowel: No significant focal abnormality. Partial colectomy. Appendectomy. At the sigmoid anastomosis, there is a moderate amount of formed stool. This is less than on the CT from 11/20/2019. Peritoneum: Ventral abdominal wall laxity. Small fat containing umbilical hernia. Bladder: Grossly unremarkable. Reproductive: No adnexal masses. Bones: No acute fracture. Other: n/a IMPRESSION: No acute intra-abdominal or pelvic finding. Incidental findings as noted above.
--- NOTE | 2021-04-30 20:28 | EDPHYS ---
Physician Documentation [facility] Name: Tete Hinkle Age: 50 yrs Sex: Female : 1970 Arrival Date: 04/30/2021 Time: 15:14 Bed 26 Private MD: ED Physician Brandon Martinez HPI: 04/30 16:39 This 50 yrs old Female presents to ER via Ambulatory with complaints of ma2 Abdominal Pain. 16:39 The patient presents with abdominal pain. Onset: The symptoms/episode began/occurred ma2 gradually, 2 month(s) ago. Associated signs and symptoms: Pertinent negatives: anorexia, chest pain, diarrhea, headache. Severity of pain: At its worst the pain was moderate in the emergency department the pain is unchanged. The patient has experienced similar episodes in the past. 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 - Social history:: Smoking status: . - Family history:: not pertinent. - Code Status:: Full code. - Hospitalizations: : No recent hospitalization is reported. ROS: 16:39 Constitutional: Negative for fever, chills, and weight loss. ma2 16:39 All other systems are negative. Exam: 16:39 Constitutional: This is a well developed, well nourished patient who is awake, alert, ma2 and in no acute distress. Head/Face: Normocephalic, atraumatic. Eyes: Pupils equal round and reactive to light, extra-ocular motions intact. Lids and lashes normal. Conjunctiva and sclera are non-icteric and not injected. Cornea within normal limits. Periorbital areas with no swelling, redness, or edema. ENT: Nares patent. No nasal discharge, no septal abnormalities noted. Tympanic membranes are normal and external auditory canals are clear. Oropharynx with no redness, swelling, or masses, exudates, or evidence of obstruction, uvula midline. Mucous membranes moist. Neck: Trachea midline, no thyromegaly or masses palpated, and no cervical lymphadenopathy. Supple, full range of motion without nuchal rigidity, or vertebral point tenderness. No Meningismus. Chest/axilla: Normal chest wall appearance and motion. Nontender with no deformity. No lesions are appreciated. Cardiovascular: Regular rate and rhythm with a normal S1 and S2. No gallops, murmurs, or rubs. Normal PMI, no JVD. No pulse deficits. Respiratory: Lungs have equal breath sounds bilaterally, clear to auscultation and percussion. No rales, rhonchi or wheezes noted. No increased work of breathing, no retractions or nasal flaring. Abdomen/GI: Soft, non-tender, with normal bowel sounds. No distension or tympany. No guarding or rebound. No evidence of tenderness throughout. Back: No spinal tenderness. No costovertebral tenderness. Full range of motion. Skin: Warm, dry with normal turgor. Normal color with no rashes, no lesions, and no evidence of cellulitis. MS/ Extremity: Pulses equal, no cyanosis. Neurovascular intact. Full, normal range of motion. Neuro: Awake and alert, GCS 15, oriented to person, place, time, and situation. Cranial nerves II-XII grossly intact. Motor strength 5/5 in all extremities. Sensory grossly intact. Cerebellar exam normal. Normal gait. 19:55 ECG was reviewed by the Attending Physician. viry Vital Signs: 15:25 BP 124 / 81; Pulse 51; Resp 17; Temp 97.9(TE); Pulse Ox 98% on R/A; tw2 16:27 BP 132 / 77 LA; Pulse 45; Resp 16; Temp 98.0(O); Pulse Ox 97% on R/A; kh1 18:20 BP 143 / 79; Pulse 84; Resp 20; Pulse Ox 93% on R/A; kh1 19:30 BP 150 / 86; Pulse 51; Resp 20; Temp 97.6; Pulse Ox 98% on R/A; kh1 21:00 BP 160 / 80; Pulse 72; Resp 18; Temp 98.7(O); Pulse Ox 100% on R/A; Pain 0/10; kc4 [place] Coma Score: 16:27 Eye Response: spontaneous(4). Verbal Response: oriented(5). Motor Response: obeys kh1 commands(6). Total: 15. MDM: 15:39 Patient medically screened. ma2 16:39 Differential diagnosis: gastritis, gastroesophageal reflux disease, Hepatitis, ma2 Irritable bowel syndrome. 19:54 Data reviewed: vital signs, nurses notes, lab test result(s), radiologic studies, CT viry scan. 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 Counseling: I had a detailed discussion with the patient and/or guardian regarding: the historical points, exam findings, and any diagnostic results supporting the discharge/admit diagnosis, lab results, radiology results. 04/30 15:40 Order name: Basic Metabolic Panel; Complete Time: 18:19 [facility] 04/30 15:40 Order name: CBC with Diff; Complete Time: 17:12 [facility] 04/30 15:40 Order name: Hepatic Function; Complete Time: 18:19 [facility] 04/30 15:40 Order name: Lipase; Complete Time: 18:19 [facility] 04/30 16:09 Order name: CT Abd/Pelvis - IV Contrast Only; Complete Time: 20:22 [facility] 04/30 15:40 Order name: IV Saline Lock; Complete Time: 16:52 [facility] 04/30 15:40 Order name: Labs collected and sent; Complete Time: 16:52 [facility] 04/30 15:40 Order name: Urine Dipstick-Ancillary (obtain specimen) ne2 EC:55 Rate is 100 beats/min. Rhythm is regular. QRS [place] is Normal. UT interval is normal. viry QRS interval is normal. QT interval is normal. No Q waves. T waves are Normal. No ST changes noted. Clinical impression: NSR w/ Non-specific ST/T Changes and No evidence of ischemia. Interpreted by me. Reviewed by me. Administered Medications: 17:05 Drug: Ketorolac 30 mg Route: IVP; Site: right hand; kh1 20:52 Follow up: Response: No adverse reaction kc4 17:23 Drug: NS 0.9% 1000 ml Route: IV; Rate: 1 bolus; Site: right hand; kh1 19:15 Drug: Flagyl (metroNIDAZOLE) 500 mg Volume: 100 ml; Route: IVPB; Rate: 200 ml/hr; kh1 Infused Over: 30 mins; Site: right antecubital; 20:50 Follow up: Response: No adverse reaction; IV Status: Completed infusion kc4 19:16 Drug: Zofran (Ondansetron) 4 mg Route: IVP; Site: right antecubital; kh1 20:51 Follow up: Response: No adverse reaction kc4 19:16 Drug: Rocephin (cefTRIAXone) 1 grams Route: IV; Rate: calculated rate; Site: right kh1 antecubital; 20:51 Follow up: Response: No adverse reaction; IV Status: Completed infusion kc4 19:24 Drug: Dilaudid (HYDROmorphone) 1 mg Route: IVP; Site: right hand; kh1 20:52 Follow up: Response: No adverse reaction kc4 Disposition Summary: 04/30/21 20:28 Discharge Ordered Location: Home viry Problem: new viry Symptoms: have improved viry Condition: Stable viry Diagnosis - Abdominal tenderness viry - Constipation viry Followup: viry - With: Private Physician - When: 2 - 3 days - Reason: Recheck today's complaints, Continuance of care, Re-evaluation by your physician Discharge Instructions: - Discharge Summary Sheet viry - Abdominal Pain, Adult viry - Constipation, Adult viry - Constipation, Adult, [id number] viry - Abdominal Pain, Adult, [id number] [facility] Forms: - Medication Reconciliation Form [facility] - Thank You Letter viry - Antibiotic Education [facility] - Prescription Opioid Use [facility] Prescriptions: - Pepcid 20 mg Oral Tablet - take 1 tablet by ORAL route every 12 hours for 15 days; 30 tablet; Refills: 0, [facility] Product Selection Permitted - Lactulose 10 gram/15 mL Oral Solution - take 30 milliliters by ORAL route once daily; 300 milliliter; Refills: 0, [facility] Product Selection Permitted - dicyclomine 20 mg Oral Tablet - take 1 tablet by ORAL route 4 times per day; 28 tablet; Refills: 0, Product [facility] Selection Permitted - Zofran 4 mg Oral Tablet - take 1 tablet by ORAL route every 12 hours As needed; 20 tablet; Refills: 0, [facility] Product Selection Permitted Signatures: Dispatcher [employer] Brandon Cowan MD MD cha Wise, Tara, RN RN tw2 Kelsie Mina MD MD ma2 Melody Mendez [facility] Nathalie Noel 4
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
[2021-04-30 21:36] VITALS: BP 160/80; TEMP 98.7; O2SAT 100
== END 2021-04-30 21:04 | disposition home or self-care (01) ==
LOC: ER 15:12
DX: K59.00 Constipation, unspecified (principal); R10.819 Abdominal tenderness, unspecified site; J45.909 Unspecified asthma, uncomplicated; E11.9 Type 2 diabetes mellitus without complications; E78.5 Hyperlipidemia, unspecified; I10 Essential (primary) hypertension
CPT/HCPCS: 93005; 85025; 80048; 36415; 80076; 83690; 74177; 99284; Q9967; J1170; J0696 ×2; J2405

== ENCOUNTER 2021-08-07 10:07 | Emergency (ER) | payer OTHER ==
--- OUTSIDE RECORDS SUMMARY | 2021-08-07 10:10 | XMS REPORT | Continuity of Care Document ---
:1970 Author Organization [facility] t Address [address] [place] [address] Care Team Providers Name Role Phone Unavailable [...] [facility] Zofran Zofran Yes Chuy 1 tablet [facility]ics Meclizine Meclizine Yes Chuy as [facility] HCl HCl Thomas directed [facility] Duloxetine Duloxetine Yes Chuy [address] HCl HCl [facility] Cetirizine Cetirizine Yes Chuy [address] HCl HCl [facility]uy [address] Sodium Sodium [facility] in [facility] Metoprolol Metoprolol Yes Chuy [address] Tartrate Tartrate Thomas with food L [facility] ent Clinics Immunizations Ordered Filled Immunization Date Status Comments Sour e Immunization Name Name Flucelvax - Flucelvax - 2019-06-[address] [facility] - multidose vial multidose vial 00:00:00 [facility] Procedures This patient has no known procedures. Encounters Start End Encounter Admission Attending Care Care Encounter Source Date/Time Date/Time Type Type Clinicians Facility Department ID 2021-07-11 2021-07-11 ambulatory [facility] [id number] [facility] 2021-07-11 2021-07-11 amb[facility] [id number] [facility] 2021-06-24 2021-06-24 ambulatory [facility] [id number] [facility] 2021-05-29 2021-05-29 Outpatient [facility] [id number] [facility] 2021-05-14 2021-05-14 Out[facility] [id number] [facility] 2021-05-14 2021-05-14 [facility] [id number] [facility] 2021-04-18 2021-04-18 Outpatient [facility] [id number] [facility] 2021-04-17 2021-04-17 Out[facility] [id number] [facility] 2021-04-09 2021-04-09 Out[facility] [id number] [facility] 2021-04-03 2021-04-03 Outpatient [facility] [id number] [facility] 2021-04-03 2021-04-03 Out[facility] [id number] [facility] 2021-03-13 2021-03-13 Outpatient [facility] [id number] [facility] 2021-03-03 2021-03-03 Outpatient [facility] [id number] [facility] 2021-02-26 2021-02-26 Outpatient [facility] [id number] [facility] 2020-11-07 2020-11-07 Outpatient [facility] [id number] [facility] 2020-11-05 2020-11-05 Outpatient [facility] [id number] [facility] 2020-10-24 2020-10-24 Outpatient [facility] [id number] [facility] 2020-10-24 2020-10-24 [facility] [id number] [facility] 2020-05-31 2020-05-31 Outpatient [facility] [id number] [facility] 2020-03-11 2020-03-11 [facility] [id number] [address] 15:43:00 15:43:00 t INVOLTA s - Drive [facility] Medicine l Medicine Outpati ent Clinics 2020-03-08 2020-03-08 [facility] [id number] 13:45:00 13:45:00 t INVOLTA s - [employer] [facility] Medicine l Medicine Outpati ent Clinics 2020-03-07 2020-03-07 [facility] [id number] 17:22:00 17:22:00 t INVOLTA s - Drive [facility] Medicine l Medicine Outpati ent Clinics 2020-03-07 2020-03-07 [facility] [id number] 16:40:00 16:40:00 t INVOLTA s - [employer] [facility] Medicine l Medicine Outpati ent Clinics 2020-03-06 2020-03-06 [facility] [id number] 11:04:00 11:04:00 t Mobile Location, IP s - [employer] [facility] Medicine l Medicine Outpati ent Clinics 2020-02-20 2020-02-20 [facility] [id number] 10:00:00 10:00:00 t Mobile Location, IP s - [employer] [facility] Medicine l Medicine Outpati ent Clinics 2020-02-19 2020-02-19 [facility] [id number] 08:56:00 08:56:00 t Mobile Location, IP s [employer] [facility] Medicine l Medicine Outpati ent Clinics 2019-12-11 2019-12-11 [facility] [id number] 10:21:00 10:21:00 t [employer] [facility] l Medicine Outpati ent Clinics 2019-12-08 2019-12-08 [facility] [id number] 13:15:00 13:15:00 t [employer] s - Drive [facility] Medicine l Medicine Outpati ent Clinics 2019-12-07 2019-12-07 [facility] [id number] 10:11:00 10:11:00 t [employer] s - Drive [facility] l Medicine Outpati ent Clinics 2019 2019 [facility] [id number] 16:00:00 16:00:00 t [employer] s - [employer] [facility] l Medicine Outpati ent Clinics 2019-11-22 2019-11-22 [facility] [id number] 08:28:00 08:28:00 t INVOLTA s - [employer] [facility] Medicine Outpati ent Clinics 2019-11-21 2019-11-21 [facility] [id number] 09:00:00 09:00:00 t INVOLTA s - [employer] [facility] l Medicine Outpati ent Clinics 2019-08-22 2019-08-22 [facility] [id number] [facility] 16:20:00 16:20:00 t INVOLTA s - [employer] [facility] l Medicine Outpati ent Clinics 2019-08-08 2019-08-08 [facility] [id number] 14:37:00 14:37:00 t INVOLTA s - [employer] [facility] Medicine l Medicine Outpati ent Clinics 2019-06-30 2019-06-30 [facility] [id number] [facility] 14:00:00 14:00:00 t [employer] s - Drive [facility] l Medicine Outpati ent Clinics 2019-06-22 2019-06-22 [facility] [id number] [facility] 16:34:00 16:34:00 t INVOLTA s - Drive [facility] l Medicine Outpati ent Clinics 2019-06-02 2019-06-02 [facility] [id number] 13:00:00 13:00:00 t [place] [employer] s - [employer] [facility] Medicine Medicine Outpati ent Clinics 2019-03-31 2019-03-31 [facility] [id number] 13:40:00 13:40:00 t [place] [employer] s - Drive [facility] Medicine Outpati ent Clinics 2019-03-01 2019-03-01 [facility] [id number] 10:00:00 10:00:00 t [place] [employer] s - Drive [facility] Medicine Medicine Outpati ent Clinics 2019-02-20 2019-02-20 [facility] [id number] 10:00:00 10:00:00 t [place] [facility] Medicine Outpati ent Clinics 2019-02-14 2019-02-14 [facility] [id number] 09:40:00 09:40:00 t [employer] [place] [facility] Medicine Outpati ent Clinics 2019-02-07 2019-02-07 [facility] [id number] 11:20:00 11:20:00 t [employer] [employer] s - [employer] [facility] Medicine Outpati ent Clinics 2019-01-05 2019-01-05 [facility] [id number] 15:15:00 15:15:00 t Specialty/U Brigette kes - Specialty [facility]rology [facility] l Clinic Outpati ent Clinics 2018-12-15 2018-12-15 [facility] [id number] 15:15:00 15:15:00 t Specialty/U Brigette kes - Specialty [facility]y [facility]Urology Clinic l Clinic Outpati ent Clinics 2018-12-01 2018-12-01 [facility] [id number] 09:48:00 09:48:00 t Urgent Urgent Care L [facility] - Care Clinic [facility] Clinic Outpati ent Clinics 2018-11-29 2018-11-29 [facility] [id number] 11:00:00 11:00:00 t Urgent Urgent [facility] - Care Clinic [facility] Outpati ent Clinics 2018-05-15 2018-05-15 [facility] [id number] 17:51:00 17:51:[address] [employer] s - Drive [facility] Medicine Outpati ent Clinics 2018-05-03 2018-05-03 [facility] [id number] 15:05:00 15:05:00 t Hettick H[employer] [employer] s - Drive [facility] Medicine Outpati ent Clinics 2018-05-03 2018-05-03 [facility] [id number] [facility] 08:50:00 08:50:00 t Hettick [employer] s - [employer] [facility] Medicine Outpati ent Clinics 2018-04-29 2018-04-29 [facility] [id number] 10:30:00 10:30:00 t Hettick Hettick [employer] s - [employer] [facility] Medicine Outpati ent Clinics 2018-04-01 2018-04-01 [facility] [id number] 14:19:00 14:19:00 t Hettick Hett[employer] s - Drive [facility] Medicine Outpati ent Clinics 2018-04-01 2018-04-01 [facility] [id number] 11:15:00 11:15:00 t [employer] s - [employer] [facility] Medicine Outpati ent Clinics Results This patient has no known results.
--- NOTE | 2021-08-07 16:23 | EDPHYS ---
Physician Documentation [facility] Name: Tete Hinkle Age: 50 yrs Sex: Female : 1970 Arrival Date: 08/07/2021 Time: 10:10 Bed Waiting Private MD: Shila Nathan ED Physician Brandon Martinez HPI: 08/07 16:15 This 50 yrs old Female presents to ER via Ambulatory with complaints of cp Sore Throat, Cough, Breathing Difficulty, Ear Pain, Fever. 16:15 The patient presents with sore throat. cp 16:15 Onset: The symptoms/episode began/occurred 2 day(s) ago. Associated signs and symptoms: cp Pertinent positives: cough, earache, fever, shortness of breath body aches, chills, Pertinent negatives chest pain. [employer] ESTATE [place]: 16:46 LMP N/A - control method rose Historical: - Allergies: 10:41 NKDA; rose - Home Meds: 10:41 losartan Oral [Active]; Metoprolol Tartrate Oral [Active]; rosuvastatin Oral [Active]; rose Zyrtec Oral [Active]; - PMHx: 10:41 Asthma; Diabetes - NIDDM; Diverticulitis; Hyperlipidemia; Hypertension; rose - Immunization history:: Adult Immunizations up to date. - Social history:: Smoking status: Patient denies any tobacco usage or history of. ROS: 16:17 Constitutional: Positive for body aches, chills, Negative for fever, poor PO intake. cp 16:17 Eyes: Negative for injury, pain, redness, and discharge. cp 16:17 ENT: Positive for ear pain, rhinorrhea, sore throat, Negative for drainage from ear(s), difficulty swallowing, difficulty handling secretions. 16:17 Cardiovascular: Negative for chest pain, edema, palpitations. 16:17 Respiratory: Positive for cough, "sounds productive", shortness of breath, on exertion. Negative for wheezing. 16:17 Abdomen/GI: Negative for abdominal pain, nausea, vomiting, and diarrhea. 16:17 Neuro: Negative for altered mental status, headache. 16:17 All other systems are negative. Exam: 16:19 Head/Face: Normocephalic, atraumatic. cp 16:19 Constitutional: The patient appears in no acute distress, alert, awake, non-toxic, well developed, well nourished. 16:19 Eyes: Periorbital structures: appear normal, Conjunctiva: normal, no exudate, no injection, Sclera: no appreciated abnormality, Lids and lashes: appear normal, bilaterally. 16:19 ENT: External ear(s): are unremarkable, Ear canal(s): are normal, clear, TM's: bulging, is not appreciated, erythema, that is mild, bilaterally, Nose: is normal, Mouth: Lips: moist, Oral mucosa: moist, Posterior pharynx: Airway: no evidence of obstruction, patent, Tonsils: bilaterally enlarged, with erythema, no exudate, erythema, that is moderate, exudate, is not appreciated. 16:19 Neck: ROM/movement: is normal, is supple, no meningismus, no nuchal rigidity. 16:19 Chest/axilla: Inspection: normal. 16:19 Cardiovascular: Rate: normal, Rhythm: regular. 16:20 Respiratory: the patient does not display signs of respiratory distress, Respirations: cp labored breathing, is not present, shallow respirations, are not present, Breath sounds: decreased breath sounds, are not appreciated, stridor, is not appreciated, + upper airway congestion. 16:20 Abdomen/GI: Exam negative for discomfort, distension, guarding, Inspection: abdomen appears normal. Vital Signs: 10:40 BP 153 / 68; Pulse 91; Resp 18; Temp 99.8(O); Pulse Ox 97% on R/A; Weight 117.93 kg rose (R); Height 5 ft. 3 in. (160.02 cm); 10:40 Body Mass Index 46.06 (117.93 kg, 160.02 cm) rose MDM: 16:22 Patient medically screened. cp 16:22 Differential diagnosis: bronchitis, group A strep tonsillitis, influenza, pharyngitis, cp tonsillitis, upper respiratory infection, strep throat, COVID-19, otitis media. 16:22 Data reviewed: vital signs, nurses notes, lab test result(s). Counseling: I had a cp detailed discussion with the patient and/or guardian regarding: the historical points, exam findings, and any diagnostic results supporting the discharge/admit diagnosis, lab results, to return to the emergency department if symptoms worsen or persist or if there are any questions or concerns that arise at home. ED course: VSS. Patient appears non-toxic and no signs of respiratory distress. Will discharge to home for continued monitoring. 08/07 13:41 Order name: Strep; Complete Time: 15:41 rose 08/07 16:18 Interpretation: Reviewed. cp 08/07 14:13 Order name: Throat Culture EDMS Administered Medications: No medications were administered Disposition Summary: 08/07/21 16:22 Discharge Ordered Location: Home cp Problem: new cp Symptoms: are unchanged cp Condition: Stable cp Diagnosis - Otitis media, unspecified, bilateral cp - Acute upper respiratory infection, unspecified cp Followup: cp - With: Private Physician - When: 2 - 3 days - Reason: Worsening of condition Discharge Instructions: - Discharge Summary Sheet cp - Otitis Media, Adult cp - Upper Respiratory Infection, Adult cp Forms: - Medication Reconciliation Form cp - Thank You Letter cp - Antibiotic Education cp - Prescription Opioid Use cp Prescriptions: - Amoxicillin 875 mg Oral Tablet - take 1 tablet by ORAL route every 12 hours for 10 days; 20 tablet; Refills: 0, cp Product Selection Permitted - Ibuprofen 800 mg Oral Tablet - take 1 tablet by ORAL route every 8 hours As needed take with food; 30 tablet; cp Refills: 0, Product Selection Permitted - Tessalon Perles 100 mg Oral Capsule - take 2 capsule by ORAL route every 8 hours As needed; 30 capsule; Refills: 0, cp Product Selection Permitted Addendum: 08/09/2021 09:04 Co-signature as Attending Physician, Brandon Martinez MD I agree with the assessment and c rose plan of care. Signatures: Dispatcher [employer] EDMS Brandon Martinez MD MD cha Page, Corey, PA PA cp Fortino Manzano, NIKHIL HYDRAULIC MINER pm1 Aubree Blake RN RN rose
--- NOTE | 2021-08-07 16:23 | ER ---
Nurse's Notes [facility] Name: Tete Hinkle Age: 50 yrs Sex: Female : 1970 Arrival Date: 08/07/2021 Time: 10:10 Bed Waiting Private MD: Shila Nathan Diagnosis: Otitis media, unspecified, bilateral;Acute upper respiratory infection, unspecified Presentation: 08/07 10:40 Chief complaint: Patient states: cough, sore throat, fever, bilateral ear pain, body rose aches. Coronavirus screen: Vaccine status: Patient reports receiving the 2nd dose of the covid vaccine. Ebola Screen: Patient denies travel to an Ebola-affected area in the 21 days before illness onset. Initial Sepsis Screen: Does the patient meet any 2 criteria? No. Patient's initial sepsis screen is negative. Does the patient have a suspected source of infection? No. Patient's initial sepsis screen is negative. Risk Assessment: Do you want to hurt yourself or someone else? Patient reports no desire to harm self or others. Onset of symptoms was August 05, 2021. 10:40 Method Of Arrival: Ambulatory rose 10:40 Acuity: DEANDRA 3 rose Triage Assessment: 10:41 General: Appears in no apparent distress. Behavior is calm, cooperative. EENT: Reports rose pain in right ear and left ear Pain is 6 out of 10 on a pain scale. 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 - Social history:: Smoking status: Patient denies any tobacco usage or history of. Screenin:45 Abuse screen: Denies threats or abuse. Denies injuries from another. Nutritional rose screening: No deficits noted. Tuberculosis screening: No symptoms or risk factors identified. Fall Risk None identified. Assessment: 16:44 Respiratory: Airway Respiratory effort is even, unlabored, Breath sounds are clear rose bilaterally. EENT: Throat is pink Reports. Vital Signs: 10:40 BP 153 / 68; Pulse 91; Resp 18; Temp 99.8(O); Pulse Ox 97% on R/A; Weight 117.93 kg rose (R); Height 5 ft. 3 in. (160.02 cm); 10:40 Body Mass Index 46.06 (117.93 kg, 160.02 cm) rose ED Course: 10:10 Patient arrived in ED. am2 10:11 Shila Nathan MD is Private Physician. am2 10:41 Triage completed. rose 16:18 Brandon Wright PA is PHCP. cp 16:18 Brandon Martinez MD is Attending Physician. cp 16:45 Patient has correct armband on for positive identification. rose 16:45 No provider procedures requiring assistance completed. rose 16:46 Arm band placed on right wrist. rose 16:46 Patient did not have IV access during this emergency room visit. rose Administered Medications: No medications were administered Outcome: 16:22 Discharge ordered by MD. cp 16:45 Discharged to home ambulatory. rose 16:45 Condition: good 16:45 Discharge instructions given to patient, Prescriptions given X 3. 16:47 Patient left the ED. rose Signatures: Brandon Wright PA PA cp Moreno, Amanda am2 Aubree Blake RN RN rose
[2021-08-07 16:56] VITALS: BP 153/68; TEMP 99.8; O2SAT 97
== END 2021-08-07 16:47 | disposition home or self-care (01) ==
LOC: ER 10:07
DX: U07.1 COVID-19 (principal); H66.93 Otitis media, unspecified, bilateral; J06.9 Acute upper respiratory infection, unspecified; E11.9 Type 2 diabetes mellitus without complications; I10 Essential (primary) hypertension
CPT/HCPCS: 87070; 87081; 99282; U0003

== ENCOUNTER 2021-09-25 15:04 | Observation (INO) | payer OTHER ==
--- OUTSIDE RECORDS SUMMARY | 2021-09-25 15:07 | XMS REPORT | Continuity of Care Document ---
:1970 Author Organization [facility] t Address [address] [place] [address] Care Team Providers Name Role Phone Meseret Nathan Attending Clinician Unavailable Problems This patient has no known [...] [address] [facility] Zofran Zofran Yes [place] 1 tablet [facility] needed [facility] Meclizine Meclizine Yes [place]uy as [facility] HCl HCl [facility] directed [facility] Duloxetine Duloxetine Yes [place]uy [address] [facility] [address] HCl HCl [facility] Cetirizine Cetirizine Yes Chuy [address] [facility] [address] HCl HCl Thomas [facility] Yes [place]uy [address] [facility] Sodium Sodium [facility] Metoprolol Metoprolol Yes Chuy [address] [facility] Tartrate Tartrate Thomas with food L [facility] Immunizations Ordered Filled Immunization Date Status Comments Sour e Immunization Name Name Flucelvax - Flucelvax - 2019-06-[address] [facility] - multidose vial multidose vial 00:00:00 [facility] Procedures This patient has no known procedures. Encounters Start End Encounter Admission Attending Care Care Encounter Source Date/Time Date/Time Type Type Clinicians Facility Department ID 2021-09-03 Outpatient [facility] [id number] [facility] 14[facility]13:52 [id number] [facility] 2021-09-03 Outpatient NathanShila [facility] [id number] [facility] [address] 13:27:33 [id number] [facility] 2021-09-03 Outpatient NathanShila [facility] [id number] [facility] [address] 12[facility]46:20 [id number] [facility] 2021-09-03 Outpatient Nathan Na [facility] STLML[facility] [id number] [facility] 11:39:37 [id number] [facility] 2021-09-03 Outpatient Nathan Na [facility] [id number] [facility] [address] 11:33:38 [id number] [facility] 2021-09-03 Outpatient Nathan Na [facility] [id number] [facility] [address] 11:31:13 [id number] [facility] 2021-09-03 Outpatient Nathan, Na STLMLC [facility] [id number] [facility] [address] 11:20:06 [id number] [facility] 2021-09-03 Outpatient Nathan, Na STLMLC ST[facility] [id number] [facility] [address] 11:10:40 [id number] [facility] 2021-09-03 Outpatient Nathan, Na STLMLC STL[facility]C [id number] [facility] [address] 11:00:37 [id number] [facility] 2021-09-03 Outpatient Nathan, Na [facility]LMLC ST[facility] [id number] [facility] [address] 10:59:24 [id number] [facility] 2021-09-24 2021-09-24 ambulatory [facility] [id number] [facility] 2021-08-18 2021-08-18 ambulatory [facility] [id number] [facility] 2021-08-15 2021-08-15 ambulatory [facility] [id number] [facility] 2021-08-15 2021-08-15 ambulatory [facility] [id number] [facility] 2021-07-11 2021-07-11 ambulatory [facility] [id number] [facility] 2021-07-11 2021-07-11 ambulatory [facility] [id number] [facility] 2021-06-24 2021-06-24 ambulatory [facility] [id number] [facility] 2021-05-29 2021-05-29 Outpatient [facility] [id number] [facility] 2021-05-14 2021-05-14 Outpatient [facility] [id number] [facility] 2021-05-14 2021-05-14 Outpatient [facility] [id number] [facility] 2021-04-18 2021-04-18 Outpatient [facility] [id number] [facility] 2021-04-17 2021-04-17 Outpatient [facility] [id number] [facility] 2021-04-09 2021-04-09 Outpatient [facility] [id number] [facility] 2021-04-03 2021-04-03 Outpatient [facility] [id number] [facility] 2021-04-03 2021-04-03 Outpatient [facility] [id number] [facility] 2021-03-13 2021-03-13 Outpatient [facility] [id number] [facility] 2021-03-03 2021-03-03 Outpatient [facility] [id number] [facility] 2021-02-26 2021-02-26 Outpatient [facility] [id number] [facility] 2020-11-07 2020-11-07 Outpatient [facility] [id number] [facility] 2020-11-05 2020-11-05 [facility] [id number] [facility] 2020-10-24 2020-10-24 Out[facility] [id number] [facility] 2020-10-24 2020-10-24 [facility] [id number] [facility] 2020-05-31 2020-05-31 [facility] [id number] [facility] 2020-03-11 2020-03-11 [facility] [id number] 15[facility]43:00 15:43:00 [place] [employer] - [facility] Family Medicine l Medicine Outpati ent Clinics 2020-03-08 2020-03-08 [facility] [id number] 13:45:00 13:45:00 t [employer] - [employer] [facility] Family Medicine l Medicine Outpati ent Clinics 2020-03-07 2020-03-07 [facility] [id number] 17:22:00 17:22:00 t [place] [employer] [facility] Family Medicine l Medicine Outpati ent Clinics 2020-03-07 2020-03-07 [facility] [id number] 16:40:00 16:40:00 t [employer] [facility] - Drive [facility] Medicine l Medicine Outpati ent Clinics 2020-03-06 2020-03-06 [facility] [id number] 11:04:00 11:04:00 t [facility] [facility] Medicine l Medicine Outpati ent Clinics 2020-02-20 2020-02-20 [facility] [id number] 10:00:00 10:00:00 t [facility] Medicine l Medicine Outpati ent Clinics 2020-02-19 2020-02-19 [facility] [id number] 08[facility]56:00 08:56:[address] [facility] [address] [facility] Medicine l Medicine Outpati ent Clinics 2019-12-11 2019-12-11 [facility] [id number] 10:21:00 10:21:[address] [facility] [address] [facility] Medicine l Medicine Outpati ent Clinics 2019-12-08 2019-12-08 [facility] [id number] [address] 13:15:00 13:15:00 t [place] [employer] [facility] - Drive [facility] Family Medicine l Medicine Outpati ent Clinics 2019-12-07 2019-12-07 [facility] [id number] 10:11:00 10:11:00 t [place] [employer] [facility] [address] [facility] Medicine l Medicine Outpati ent Clinics 2019 2019 [facility] [id number] 16:00:00 16:00:00 t [place] [employer] [facility] [address] [facility] Family Medicine l Medicine Outpati ent Clinics 2019-11-22 2019-11-22 [facility] [id number] 08:28:00 08:28:00 t [place] [employer] [facility] [address] [facility] Medicine l Medicine Outpati ent Clinics 2019-11-21 2019-11-21 [facility] [id number] 09:00:00 09:00:00 t [place] [employer] [facility] [address] [facility] Medicine l Medicine Outpati ent Clinics 2019-08-22 2019-08-22 [facility] [id number] 16:20:00 16:20:00 t [place] [employer] [address] [facility] Medicine l Medicine Outpati ent Clinics 2019-08-08 2019-08-08 [facility] [id number] 14:37:00 14:37:00 t [place] [employer] [facility] [address] [facility] Medicine l Medicine Outpati ent Clinics 2019-06-30 2019-06-30 [facility] [id number] 14:00:00 14:00:00 [place] [employer] [place] [facility] Medicine Medicine Outpati ent Clinics 2019-06-22 2019-06-22 [facility] [id number] 16:34:00 16:34:00 t [place] [employer] - Drive [facility] Medicine Outpati ent Clinics 2019-06-02 2019-06-02 [facility] [id number] [facility] 13:00:00 13:00:00 [place] [employer] - Drive [facility] Medicine Outpati ent Clinics 2019-03-31 2019-03-31 [facility] [id number] 13:40:00 13:40:00 [place] [employer] - Drive [facility] Medicine Outpati ent Clinics 2019-03-01 2019-03-01 [facility] [id number] 10:00:00 10:00:00 [place] [employer] [facility] Medicine Outpati ent Clinics 2019-02-20 2019-02-20 [facility] [id number] 10:00:00 10:00:00 [place] [employer] - [facility] Medicine Outpati ent Clinics 2019-02-14 2019-02-14 [facility] [id number] 09:40:00 09:40:00 [place] [employer] [place] [facility] Medicine Outpati ent Clinics 2019-02-07 2019-02-07 [facility] [id number] [address] 11:20:00 11:20:00 t [place] [employer] [facility] [address] [facility] Medicine Medicine Outpati ent Clinics 2019-01-05 2019-01-05 [facility] [id number] 15:15:00 15:15:00 t Specialty/U Brigette kes - Specialty rology Memori a /Urology Clinic l Clinic Outpati ent Clinics 2018-12-15 2018-12-15 [facility] [id number] 15:15:00 15:15:00 t Specialty/U Brigette kes - Specialty rology Memori a /Urology Clinic l Clinic Outpati ent Clinics 2018-12-01 2018-12-01 [facility] [id number] 09:48:00 09:48:00 t [facility] - Care [facility] l Outpati ent Clinics 2018-11-29 2018-11-29 [facility] [id number] 11:00:00 11:00:00 t [facility] - Care [facility] l Outpati ent Clinics 2018-05-15 2018-05-15 [facility] [id number] 17:51:00 17:51:00 t [employer] [facility] Medicine Outpati ent Clinics 2018-05-03 2018-05-03 [facility] [id number] [facility] 15:05:00 15:05:00 t [facility] Medicine Outpati ent Clinics 2018-05-03 2018-05-03 [facility] [id number] [facility] 08:50:00 08:50:00 t [facility] Medicine Outpati ent Clinics 2018-04-29 2018-04-29 [facility] [id number] 10:30:00 10:30:00 t [facility] Medicine Outpati ent Clinics 2018-04-01 2018-04-01 [facility] [id number] [facility] 14:19:00 14:19:00 t [facility] Medicine Outpati ent Clinics 2018-04-01 2018-04-01 [facility] [id number] [facility] 11:15:00 11:15:00 t [employer] [facility] Medicine Outpati ent Clinics Results This patient has no known results.
--- NOTE | 2021-09-25 16:18 | RAD REPORT ---
EXAM DESCRIPTION: RAD - Chest Single View - 09/25/2021 4:01 pm CLINICAL HISTORY: SOB COMPARISON: Portable 09/11/2020 TECHNIQUE: AP portable chest image was obtained 09/25/2021 4:01 pm . FINDINGS: No peripheral mass consolidation. Interstitial pattern matches comparison. Heart and vasculature are normal. No measurable pleural effusion and no pneumothorax. No acute bony abnormality seen. No acute aortic findings suspected. IMPRESSION: No acute cardiopulmonary process. No significant change from comparison study.
[2021-09-25 16:24] LABS: Hematocrit 40.4 % (36.0-45.0); Lymphocytes % 34.1 % (15.3-44.8); MPV 7.2 fL (7.6-11.3); RBC Red Blood Cell Count 4.97 M/uL (3.86-4.86)
[2021-09-25 16:27] LABS: Protime INR 0.98
[2021-09-25 16:42] LABS: ALT/SGPT 36 U/L (12-78); AST/SGOT 26 U/L (15-37); Albumin 3.6 g/dL (3.4-5.0); Alkaline Phosphatase 131 U/L (45-117); BUN Blood Urea Nitrogen 16 mg/dL (7-18); Bicarbonate 28 mmol/L (21-32); Bilirubin Direct < 0.1 mg/dL (0-0.2); Bilirubin Total 0.3 mg/dL (0.2-1.0); Glucose Level 87 mg/dL (74-106); NT PRO-BNP 30 pg/mL (<125); Potassium 3.9 mmol/L (3.5-5.1); Protein, Total 8.3 g/dL (6.4-8.2); Sodium Level 137 mmol/L (136-145)
[2021-09-25] MEDS ORDERED: MORPHINE 2 MG/ML SYR ONE (17:05)
--- NOTE | 2021-09-25 17:51 | RAD REPORT ---
EXAM DESCRIPTION: CT - Chest For Pe Angio - 09/25/2021 5:25 pm CLINICAL HISTORY: CHEST PAINhistory of COVID pneumonia August 2021 COMPARISON: CTANGIO CHEST FOR PE dated 04/09/2015; Chest Single View dated 09/25/2021 TECHNIQUE: Dynamically enhanced 3 mm thick images of the chest were obtained during administration o f approximately 150mL Isovue 370 IV contrast. Coronal and oblique MIP reconstruction images were gene rated and reviewed. Exam utilizes a protocol to evaluate the pulmonary arterial tree. All CT scans are performed using dose optimization technique as appropriate and may include automated exposure control or mA/KV adjustment according to patient size. FINDINGS: No pulmonary emboli are identified. The aorta as imaged shows no acute or suspicious finding. No pericardial thickening or effusion. No infiltrate or mass in the lung parenchyma. No evidence for residual or recurrent COVID-19 pneumoni a. No pleural effusion or pleural thickening. No mediastinal or hilar suspicious masses. No chest wall masses or abnormal axillary lymphadenopathy. IMPRESSION: No pulmonary emboli identified. No other significant or suspicious findings.
--- NOTE | 2021-09-25 18:17 | EDPHYS ---
Physician Documentation [facility] Name: Tete Hinkle Age: 50 yrs Sex: Female : 1970 Arrival Date: 09/25/2021 Time: 15:07 Bed 23 Private MD: ED Physician Arturo Santiago HPI: 09/25 16:15 This 50 yrs old Female presents to ER via Ambulatory with complaints of cp Chest Pain. 16:15 The patient or guardian reports chest pain that is located primarily in the anterior cp chest wall, left. 16:15 Onset: 2 day(s) ago. cp 16:15 The pain radiates to left back. Associated signs and symptoms: Pertinent positives: cp shortness of breath, Pertinent negatives: abdominal pain, cough, diaphoresis, lower extremity pain, lower extremity swelling, palpitations. 16:15 The chest pain is described as sharp. Duration: The patient or guardian reports cp multiple episodes, that are intermittent. Modifying factors: the symptoms are aggravated by deep breath. 16:15 Patient report testing positive for COVID-19 in July 2021. cp Historical: - Allergies: 15:16 NKDA; ss - PMHx: 15:16 Asthma; Diabetes - NIDDM; Diverticulitis; Hyperlipidemia; Hypertension; ss - Immunization history:: Client reports receiving the 2nd dose of the Covid vaccine. - Social history:: Smoking status: Patient denies any tobacco usage or history of. ROS: 16:20 Cardiovascular: Positive for chest pain, of the left lower chest, Negative for edema, cp palpitations. 16:20 Respiratory: Positive for cough, shortness of breath, Negative for wheezing. cp 16:20 Abdomen/GI: Negative for abdominal pain, nausea, vomiting, and diarrhea. 16:20 Eyes: Negative for injury, pain, redness, and discharge. cp 16:20 Constitutional: Negative for body aches, chills, fever, poor PO intake. 16:20 ENT: Negative for ear pain, sore throat, difficulty swallowing, difficulty handling secretions. 16:20 Back: Positive for radiated pain, of the left subscapular area. 16:20 Neuro: Negative for altered mental status, headache, syncope, weakness. cp 16:20 All other systems are negative. Exam: 16:23 ECG was reviewed by the Attending Physician. cp 16:25 Constitutional: The patient appears in no acute distress, alert, awake, cp non-diaphoretic, non-toxic, well developed, well nourished, obese. 16:25 Head/Face: Normocephalic, atraumatic. cp 16:25 Eyes: Periorbital structures: appear normal, Conjunctiva: normal, no exudate, no injection, Sclera: no appreciated abnormality, Lids and lashes: appear normal, bilaterally. 16:25 ENT: External ear(s): are unremarkable, Nose: is normal, Mouth: Lips: moist, Oral mucosa: moist, Posterior pharynx: Airway: no evidence of obstruction, patent. 16:25 Neck: ROM/movement: is normal, is supple, without pain, no range of motions limitations, no nuchal rigidity. 16:25 Chest/axilla: Inspection: normal, Palpation: is normal, no crepitus, no tenderness. 16:25 Cardiovascular: Rate: bradycardic, Rhythm: regular, Edema: is not appreciated, JVD: is not appreciated. 16:25 Respiratory: the patient does not display signs of respiratory distress, Respirations: normal, no use of accessory muscles, no retractions, labored breathing, is not present, Breath sounds: are clear throughout, no decreased breath sounds, no stridor, no wheezing. 16:25 Abdomen/GI: Inspection: abdomen appears normal, Palpation: abdomen is soft and non-tender, in all quadrants. 16:25 Back: pain, that is mild, of the left subscapular area, ROM is normal. 16:25 Skin: no rash present. 16:25 Neuro: Orientation: to person, place \\T\\ time. Mentation: is normal, Motor: moves all fours, strength is normal, Sensation: is normal. Vital Signs: 15:14 Pulse 58; Resp 18; Pulse Ox 97% on R/A; Weight 108.86 kg; Height 5 ft. 3 in. (160.02 ss cm); Pain 0/10; 15:17 BP 139 / 69; Temp 99.2(O); ss 17:05 BP 141 / 62; Pulse 62; Resp 16; Pulse Ox 99% on R/A; ab2 18:13 BP 117 / 54; Pulse 70; Resp 16; Pulse Ox 97% on R/A; ab2 19:22 BP 127 / 62; Pulse 56; Resp 16; Temp 98.0(O); Pulse Ox 96% ; Pain 2/10; ab2 20:23 BP 156 / 60; Pulse 69; Resp 16; Pulse Ox 98% on R/A; ab2 21:15 BP 139 / 64; Pulse 68; Resp 16; Pulse Ox 99% on R/A; ab2 15:14 Body Mass Index 42.51 (108.86 kg, 160.02 cm) ss MDM: 16:31 Patient medically screened. cp 09/25 16:03 Order name: Basic Metabolic Panel; Complete Time: 16:48 cp 09/25 16:03 Order name: CBC with Diff; Complete Time: 16:48 cp 09/25 16:03 Order name: LFT's; Complete Time: 16:48 cp 09/25 16:03 Order name: Magnesium; Complete Time: 16:48 cp 09/25 16:03 Order name: NT PRO-BNP; Complete Time: 16:48 cp 09/25 16:03 Order name: PT-INR; Complete Time: 16:48 cp 09/25 15:17 Order name: XRAY Chest (1 view); Complete Time: 16:48 ss 09/25 16:03 Order name: Troponin HS; Complete Time: 16:48 cp 09/25 16:49 Order name: D-Dimer; Complete Time: 18:11 cp 09/25 16:49 Order name: LAB Add On cp 09/25 17:09 Order name: CT Chest For PE Angio; Complete Time: 18:11 cp 09/25 18:12 Interpretation: Report reviewed. 09/25 18:24 Order name: CORONAVIRUS (COVID-19) : Document "Date of Symptom Onset" if Symptomatic. ab2 09/25 18:30 Order name: COVID-19 SARS RT PCR (Document "Date of Onset" if Symptomatic) ab2 09/25 18:31 Order name: SARS-COV-2 RT PCR EDIL 09/25 16:03 Order name: EKG; Complete Time: 16:04 cp 09/25 16:03 Order name: Cardiac monitoring; Complete Time: 16:04 cp 09/25 16:03 Order name: EKG - Nurse/Tech; Complete Time: 16:18 cp 09/25 16:03 Order name: IV Saline Lock; Complete Time: 16:18 cp 09/25 16:03 Order name: Labs collected and sent; Complete Time: 16:18 cp 09/25 16:03 Order name: O2 Per Protocol; Complete Time: 16:18 cp 09/25 16:03 Order name: O2 Sat Monitoring; Complete Time: 16:18 cp EC:23 Rate is 51 beats/min. Rhythm is regular. MS interval is normal. QRS interval is normal. cp QT interval is normal. Interpreted by me. Reviewed by me. Administered Medications: 17:06 Drug: morphine 2 mg Route: IVP; Site: right antecubital; ab2 19:08 Drug: SOLU-Medrol (methylPrednisoLONE) 125 mg Route: IVP; Site: right antecubital; ab2 19:08 Drug: Albuterol - atroVENT (ipratropium) (3:1) (2.5 mg - 0.5 mg) 3 ml Route: Nebulizer; ab2 Disposition Summary: 09/25/21 18:16 Hospitalization Ordered Hospitalization Status: Observation cp Provider: Senia Santamaria cp Location: Telemetry/MedSurg (observation) cp Condition: Stable cp Problem: new cp Symptoms: have improved cp Bed/Room Type: Standard cp Room Assignment: 220(09/25/21 20:55) cg Diagnosis - Chest pain, unspecified cp Forms: - Medication Reconciliation Form cp - SBAR form cp Addendum: 09/27/2021 00:11 Co-signature as Attending Physician, Arturo Santiago MD I agree with the assessment and k dr plan of care. Signatures: Dispatcher [employer] EDIL Arturo Santiago MD MD [facility] Rose Blackwell RN RN ss Dong Soto, RELIEF OPERATOR-C RELIEF OPERATOR-Cla1 Brandon Wright PA PA cp Garcia, Cindy, ARYA RN Shamar Chow ab2 Corrections: (The following items were deleted from the chart) 09/25 20:55 18:16 cp cg
--- NOTE | 2021-09-25 18:17 | ER ---
Nurse's Notes [facility] Name: Tete Hinkle Age: 50 yrs Sex: Female : 1970 Arrival Date: 09/25/2021 Time: 15:07 Bed 23 Private MD: Diagnosis: Chest pain, unspecified Presentation: 09/25 15:14 Chief complaint: Patient states: "I had chest pains on Wednesday every time I would ss breath. The ambulance checked me out and did an EKG. I didn't go to the ER, but I called my doctor and they told me to go to the ER because heart problems run in my family. I feel okay other than having a hard time breathing. That began Wednesday." Denies CP at this time. Coronavirus screen: Client denies travel out of the [place] in the last 14 days. Ebola Screen: Patient denies exposure to infectious person. Patient denies travel to an Ebola-affected area in the 21 days before illness onset. Initial Sepsis Screen: Does the patient meet any 2 criteria? No. Patient's initial sepsis screen is negative. Does the patient have a suspected source of infection? No. Patient's initial sepsis screen is negative. Risk Assessment: Do you want to hurt yourself or someone else? Patient reports no desire to harm self or others. Onset of symptoms was September 23, 2021. 15:14 Method Of Arrival: Ambulatory ss 15:14 Acuity: DEANDRA 3 ss 15:17 Note Pt reports she had COVID beginning of August. ss Historical: - Allergies: 15:16 NKDA; ss - PMHx: 15:16 Asthma; Diabetes - NIDDM; Diverticulitis; Hyperlipidemia; Hypertension; ss - Immunization history:: Client reports receiving the 2nd dose of the Covid vaccine. - Social history:: Smoking status: Patient denies any tobacco usage or history of. Screenin:13 Abuse screen: Denies threats or abuse. Denies injuries from another. Nutritional ab2 screening: No deficits noted. Tuberculosis screening: No symptoms or risk factors identified. Fall Risk None identified. Assessment: 18:11 General: Appears in no apparent distress. comfortable, Behavior is calm, cooperative, ab2 appropriate for age. Pain: Complains of pain in chest Pain does not radiate. Pain began suddenly. Neuro: Level of Consciousness is awake, alert, obeys commands, Oriented to person, place, time, situation, Appropriate for age Workers Compensation Paralegal are equal bilaterally Moves all extremities. Cardiovascular: Reports chest pain, Denies shortness of breath, Heart tones S1 S2 present Patient's skin is warm and dry. Respiratory: No deficits noted. Airway is patent Respiratory effort is even, unlabored, Respiratory pattern is regular, symmetrical. GI: No deficits noted. No signs and/or symptoms were reported involving the gastrointestinal system. Abdomen is obese, Bowel sounds present X 4 quads. : No deficits noted. No signs and/or symptoms were reported regarding the genitourinary system. EENT: No deficits noted. No signs and/or symptoms were reported regarding the EENT system. Derm: No deficits noted. No signs and/or symptoms reported regarding the dermatologic system. Skin is intact, is healthy with good turgor, Skin is dry, Skin is pink, warm \\T\\ dry. Vital Signs: 15:14 Pulse 58; Resp 18; Pulse Ox 97% on R/A; Weight 108.86 kg; Height 5 ft. 3 in. (160.02 ss cm); Pain 0/10; 15:17 BP 139 / 69; Temp 99.2(O); ss 17:05 BP 141 / 62; Pulse 62; Resp 16; Pulse Ox 99% on R/A; ab2 18:13 BP 117 / 54; Pulse 70; Resp 16; Pulse Ox 97% on R/A; ab2 19:22 BP 127 / 62; Pulse 56; Resp 16; Temp 98.0(O); Pulse Ox 96% ; Pain 2/10; ab2 20:23 BP 156 / 60; Pulse 69; Resp 16; Pulse Ox 98% on R/A; ab2 21:15 BP 139 / 64; Pulse 68; Resp 16; Pulse Ox 99% on R/A; ab2 15:14 Body Mass Index 42.51 (108.86 kg, 160.02 cm) ED Course: 15:07 Patient arrived in ED. ds1 15:16 Triage completed. ss 16:01 XRAY Chest (1 view) In Process Unspecified. EDMS 16:03 Brandon Wright PA is PHCP. cp 16:03 Arturo Santiago MD is Attending Physician. cp 16:03 Shamar Santos is Primary Nurse. ab2 16:04 Patient has correct armband on for positive identification. Bed in low position. Call [facility] light in reach. Side rails up X 1. Adult w/ patient. Warm blanket given. inside sales agent on. Pulse ox on. NIBP on. 16:05 EKG done, by ED staff, reviewed by Arturo Santiago MD. mh5 16:15 No provider procedures requiring assistance completed. Inserted saline lock: 20 gauge ab2 in right antecubital area, using aseptic technique. Blood collected. Patient maintains SpO2 saturation greater than 95% on room air. 16:18 Basic Metabolic Panel Sent. mh5 16:18 CBC with Diff Sent. 5 16:18 LFT's Sent. mh5 16:18 Magnesium Sent. mh5 16:18 NT PRO-BNP Sent. mh5 16:18 PT-INR Sent. mh5 16:19 Troponin HS Sent. mh5 16:59 LAB Add On Sent. ab2 16:59 D-Dimer Sent. ab2 17:25 CT Chest For PE Angio In Process Unspecified. EDMS 18:13 Arm band placed on right wrist. ab2 18:16 Senia Santamaria MD is Hospitalizing Provider. cp 21:15 Report given to Kim KOENIG. ab2 Administered Medications: 17:06 Drug: morphine 2 mg Route: IVP; Site: right antecubital; ab2 19:08 Drug: SOLU-Medrol (methylPrednisoLONE) 125 mg Route: IVP; Site: right antecubital; ab2 19:08 Drug: Albuterol - atroVENT (ipratropium) (3:1) (2.5 mg - 0.5 mg) 3 ml Route: Nebulizer; ab2 Outcome: 18:16 Decision to Hospitalize by Provider. cp 21:16 Admitted to Med/surg accompanied by nurse, via wheelchair, with chart. ab2 21:31 Patient left the ED. ab2 Signatures: Dispatcher [employer] [facility] Rebecca Casey Shelby, RN RN Brandon Goyal PA PA cp Martinez, Maria [facility] Shamar Santos ab2
--- NOTE | 2021-09-25 19:02 | P.HP ---
Certification for Inpatient Patient admitted to: Observation With expected LOS: <2 Midnights Patient will require the following post-hospital care: None Practitioner: I am a practitioner with admitting privileges, knowledge of patient current condition, hospital course, and medical plan of care. Services: Services provided to patient in accordance with Admission requirements found in Title 42 Section 412.3 of the Code of Federal Regulations Patient History Date of Service: 09/25/21 Primary Care Provider: Dr. Nathan Reason for admission: Chest pain, asthma exacerbation History of Present Illness: 50-year-old female patient with history of diabetes, hypertension, hyperlipidemia and asthma presents emergency department for 2 to 3 days of pleuritic left-sided chest pain. Patient reports her pain only is with inspiration described as sharp nonradiating just below the left breast. Patient was evaluated the emergency department labs were unremarkable CT PE protocol negative. Patient with expiratory wheezing on exam likely with mild asthma exacerbation, ED provider wishes to admit under observation given risk factors and family history for CAD and pleuritic chest pain. 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 moist/pink, EOMI, Sclerae nonicteric Neck: Supple, 2+ carotid pulse no bruit, No LAD, Without JVD or thyroid abnormality Respiratory: Normal air movement, Expiratory wheezes Cardiovascular: Regular rate/rhythm, Normal S1 S2 Gastrointestinal: Normal bowel sounds, No tenderness Musculoskeletal: No tenderness Integumentary: No rashes Neurological: Normal gait, Normal speech, Normal strength at 5/5 x4 extr, Normal tone, Normal affect Lymphatics: No axilla or inguinal lymphadenopathy - Studies Laboratory Data (last 24 hrs) 09/25/21 16:15: PT 11.3, INR 0.98 09/25/21 16:15: WBC 8.80, Hgb 13.3, Hct 40.4, Plt Count 308 09/25/21 16:15: Sodium 137, Potassium 3.9, BUN 16, Creatinine 0.73, Glucose 87, Magnesium 2.0, Total Bilirubin 0.3, AST 26, ALT 36, Alkaline Phosphatase 131 H Assessment and Plan - Plan Assessment: Atypical chest pain rule out ACS Mild asthma exacerbation Diabetes type [id number] Hypertension Hyperlipidemia Plan: Atypical chest pain rule out ACS: Initial troponin negative pain sounds pleuritic in nature likely related to asthma exacerbation. Will repeat troponins overnight, I recommend patient follows up with cardiology on outpatient basis in the next 1 to 2 weeks for further evaluation. Daily aspirin, statin. Mild asthma exacerbation: Given dose of IV steroids, nebs in ER. Will provide with prednisone oral as well as as needed nebs treatment. Diabetes type [id number]: ACH S Accu-Chek, sliding scale insulin. Hypertension: Continue home medications Hyperlipidemia: Continue home medications DVT PPX: Lovenox Code status: Full Discharge Plan: Home Plan to discharge in: 24 Hours - Advance Directives Does patient have a Living Will: No Does patient have a Durable POA for Healthcare: No - Code Status/Comfort Care Code Status Assessed: Yes (Full code) Critical Care: No Time Spent Managing Pts Care (In Minutes): 55
[2021-09-25] MEDS ORDERED: ALBUTEROL 2.5 MG/3 ML NEB SOL ONE (19:06)
[2021-09-25] MEDS ORDERED: METHYLPREDNISOLONE 125 MG INJ ONE (19:06)
[2021-09-25] MEDS: INSULIN -REGULAR HUMAN 50 UNIT/0.5 ML ML SQ SCH (21:38)
[2021-09-25] MEDS ORDERED: IPRATROPIUM BROM 0.5MG/2.5ML NEB PRN (21:38)
[2021-09-25] MEDS ORDERED: ACETAMINOPHEN 500 MG TAB PO PRN (21:38)
[2021-09-25] MEDS ORDERED: TRAMADOL HCL 50 MG TAB PO PRN (21:38)
[2021-09-25] MEDS ORDERED: ALBUTEROL 2.5 MG/3 ML NEB SOL NEB PRN (21:38)
[2021-09-25] MEDS ORDERED: ONDANSETRON 4 MG/2 ML VIAL IV PRN (21:38)
[2021-09-25] MEDS ORDERED: MELATONIN 5 MG TABLET PO PRN (21:38)
[2021-09-25 22:26] VITALS: BMI 38.9
[2021-09-25] MEDS: predniSONE 20 MG TAB PO SCH (23:04)
[2021-09-26] MEDS ORDERED: KETOROLAC 30 MG/ML INJ IV ONE (01:29)
[2021-09-26 02:40] LABS: Urine Appearance CLEAR (Clear); Urine Bilirubin NEGATIVE (Negative); Urine Blood NEGATIVE (Negative); Urine Color YELLOW (Yellow); Urine Glucose 3+ (Negative); Urine Protein 2+ (Negative); Urine Specific Gravity >=1.030 (1.005-1.030); Urine Urobilinogen 0.2 mg/dL (0.2-1.0); Urine pH 6.5 (5.0-7.0)
[2021-09-26 02:43] LABS: Urine Microscopic Reflex ORDER UMIC
[2021-09-26 02:51] LABS: Urine Bacteria <20 /HPF (<20); Urine RBC <5 /HPF (NONE SEEN)
[2021-09-26 06:01] LABS: Absolute Lymphocytes (CBC) 1.4 K/uL (0.7-4.9); Hematocrit 39.4 % (36.0-45.0); MPV 7.3 fL (7.6-11.3); RBC Red Blood Cell Count 4.82 M/uL (3.86-4.86)
[2021-09-26 06:25] LABS: Albumin 3.4 g/dL (3.4-5.0); Bilirubin Total 0.2 mg/dL (0.2-1.0); Potassium 4.3 mmol/L (3.5-5.1); Troponin High Sensitivity 4.4 pg/mL (<58.9)
[2021-09-26] MEDS: INSULIN -REGULAR HUMAN 50 UNIT/0.5 ML ML SQ SCH ×2 (07:30→12:28)
[2021-09-26] MEDS ORDERED: ENOXAPARIN 40 MG/0.4 ML SQ SCH (09:00)
[2021-09-26] MEDS ORDERED: ASPIRIN EC 81 MG TAB PO SCH (09:00)
[2021-09-26] MEDS: predniSONE 20 MG TAB PO SCH (09:48)
[2021-09-26 10:32] VITALS: O2SAT 95
[2021-09-26 12:35] VITALS: BP 150/73; TEMP 98
--- NOTE | 2021-09-26 12:58 | P.DS ---
Admission Date: 09/25/21 Discharge Date: 09/26/21 Primary Care Provider: Dr. Nathan Disposition: ROUTINE DISCHARGE Discharge Condition: FAIR Reason for Admission: Chest pain, asthma exacerbation Brief History of Present Illness: History of Present Illness: 50-year-old female patient with history of diabetes, hypertension, hyperlipidemia and asthma presents emergency department for 2 to 3 days of pleuritic left-sided chest pain. Patient reports her pain only is with inspiration described as sharp nonradiating just below the left breast. Patient was evaluated the emergency department labs were unremarkable CT PE protocol negative. Patient with expiratory wheezing on exam likely with mild asthma exacerbation, ED provider wishes to admit under observation given risk factors and family history for CAD and pleuritic chest pain. Hospital Course: Past Patient was admitted for asthma exacerbation with atypical chest pain. EKG was unremarkable. Serial set of cardiac enzymes were negative. CT shows no evidence of PE or acute infiltrate. Patient has initial wheezing but improved with steroids and duo nebs. She was noted with elevated blood pressure as well as elevated glucose after initial normal glucose on admission. Elevated glucose was felt to be due to steroids. She will be discharged home on reduced steroid dosage. Advised to follow-up with primary in 1 week. She was also started on albuterol MDI for intermittent nocturnal wheezing. She is currently taking Toprol which is controlling her blood pressure but if recurrent nocturnal wheezing, might need to reevaluate need for beta-ariana. Follow-up with pulmonary in 1 week advised - Physical Exam General: Alert, In no apparent distress, Oriented x3, post ambulatory O2 sat 95% on room air HEENT: Atraumatic, PERRLA, Mucous membr. moist/pink, EOMI, Sclerae nonicteric Neck: Supple, 2+ carotid pulse no bruit, No LAD, Without JVD or thyroid abnormality Respiratory: Normal air movement, resolved wheezing Cardiovascular: Regular rate/rhythm, Normal S1 S2 Gastrointestinal: Normal bowel sounds, No tenderness Musculoskeletal: No tenderness Integumentary: No rashes Neurological: Normal gait, Normal speech, Normal strength at 5/5 x4 extr, Normal tone, Normal affect Lymphatics: No axilla or inguinal lymphadenopathy Vital Signs/Physical Exam: Temp Pulse Resp BP Pulse Ox 98.0 F 83 20 150/73 H 95 09/26/21 12:00 09/26/21 12:00 09/26/21 12:00 09/26/21 12:00 09/26/21 12:00 Laboratory Data at Discharge: WBC 10.20 K/uL (4.3-10.9) D 09/26/21 05:47 Hgb 12.8 g/dL (12.0-15.0) 09/26/21 05:47 Hct 39.4 % (36.0-45.0) 09/26/21 05:47 Plt Count 311 K/uL (152-406) 09/26/21 05:47 PT 11.3 SECONDS (9.5-12.5) 09/25/21 16:15 INR 0.98 09/25/21 16:15 Sodium 137 mmol/L (136-145) 09/26/21 05:47 Potassium 4.3 mmol/L (3.5-5.1) 09/26/21 05:47 BUN 18 mg/dL (7-18) 09/26/21 05:47 Creatinine 0.91 mg/dL (0.55-1.3) 09/26/21 05:47 Glucose 221 mg/dL (74-106) H 09/26/21 05:47 Magnesium 2.0 mg/dL (1.8-2.4) 09/25/21 16:15 Total Bilirubin 0.2 mg/dL (0.2-1.0) 09/26/21 05:47 AST 20 U/L (15-37) 09/26/21 05:47 ALT 38 U/L (12-78) 09/26/21 05:47 Alkaline Phosphatase 126 U/L (45-117) H 09/26/21 05:47 Home Medications: Metoprolol Tartrate [Lopressor] 100 mg PO BID 09/25/21 Albuterol Sulfate [Proventil Hfa] 6.7 gm IH Q6H PRN #1 hfa.aer.ad 09/26/21 predniSONE [Prednisone*] 20 mg PO BID 3 Days #12 tab 09/26/21 New Medications: predniSONE [Prednisone*] 20 mg PO BID 3 Days #12 tab Albuterol Sulfate [Proventil Hfa] 6.7 gm IH Q6H PRN #1 hfa.aer.ad PRN Reason: Wheezing Diet: ADA Followup: Shila Nathan, DO [Primary Care Provider] - Time spent managing pt's care (in minutes): 35
--- NOTE | 2021-09-26 13:06 | EKG ---
Test Date: 2021-09-25 Test Time: 16:16:51 Rat Breeder: MARIANNE MEASUREMENT RESULTS: Intervals: Rate: 51 SD: 184 QRSD: 84 QT: 428 QTc: 394 [place]: P: 68 SD: 184 QRS: -26 T: 27 INTERPRETIVE STATEMENTS: Sinus bradycardia Possible Anterior infarct, age undetermined Abnormal ECG Compared to ECG 04/30/2021 18:55:34 Myocardial infarct finding now present Sinus rhythm no longer present Atrial premature complex(es) no longer present Electronically Signed On 09-26-21 13:03:05 [employer] by Hugo Langley
[2021-09-26] MEDS ORDERED: METOPROLOL TAR 50 MG TAB PO SCH (21:00)
== END 2021-09-26 14:27 | disposition home or self-care (01) ==
LOC: ER 15:04 → ERHOLD 18:59 → 2ND 21:23
PROVIDERS: ADMIT Internal Medicine; ATTEND Internal Medicine
DX: J45.901 Unspecified asthma with (acute) exacerbation (principal); R07.89 Other chest pain; I10 Essential (primary) hypertension; E11.9 Type 2 diabetes mellitus without complications; E78.5 Hyperlipidemia, unspecified; K57.92 Diverticulitis of intestine, part unspecified, without perforation or abscess without bleeding; E78.00 Pure hypercholesterolemia, unspecified; Z86.16 Personal history of COVID-19; Z82.49 Family history of ischemic heart disease and other diseases of the circulatory system; Z82.3 Family history of stroke
CPT/HCPCS: 93005; 85025 ×2; 80048; 36415; 83735; 85610; 82947 ×2; 85379; 80076; 84484 ×3; 80053; 83880; 71275; 71045; 94640; 96375; 96374; 99285; U0003; Q9967; J7512 ×2; J1650; J2270; J2930; G0378 ×3; 81003; 81015

== ENCOUNTER 2021-11-13 13:06 | Emergency (ER) | payer OTHER ==
--- OUTSIDE RECORDS SUMMARY | 2021-11-13 13:09 | XMS REPORT | Continuity of Care Document ---
:1970 Author Organization Formerly [facility] t Address [address] [place] [address] Care Team Providers Name Role Phone Meseret [...] [address] [facility] Zofran Zofran Yes Chuy [facility] Meclizine Meclizine Yes Chuy as [facility] HCl HCl Thomas directed kes - [facility] Duloxetine Duloxetine Yes Chuy [address] [facility] HCl HCl [facility] Cetirizine Cetirizine Yes Chuy [address] [facility] [address] HCl HCl [facility] [address] [facility] [address] Sodium Sodium [facility] Metoprolol Metoprolol Yes Chuy [address] [facility] [address] Tartrate Tartrate [facility] with food [facility] Immunizations Ordered Filled Immunization Date Status Comments Sour e Immunization Name Name Flucelvax - Flucelvax - 2019-06-[address] [facility] - multidose vial multidose vial 00:00:00 [facility] Outpatient [facility] Procedures This patient has no known procedures. Encounters Start End Encounter Admission Attending Care Care Encounter Source Date/Time Date/Time Type Type Clinicians Facility Department ID 2021-09-03 Out[facility] [id number] [facility] [address] 14:13:52 [id number] [facility] 2021-09-03 Out[facility] [id number] [facility] 13[facility]27:33 [id number] [facility] 2021-09-03 Out[facility] [id number] [facility] 12:46:20 [id number] [facility] 2021-09-03 Outpatient Nathan Na [facility] [id number] [facility] 11:39:37 [id number] [facility] 2021-09-03 Outpatient Nathan Na [facility] [id number] [facility] 11:33:38 [id number] [facility] 2021-09-03 Outpatient Nathan Na [facility] [id number] 11:31:13 [id number] [facility] 2021-09-03 Outpatient Nathan, Na [facility] [id number] [facility] [address] 11:20:06 [id number] [facility] 2021-09-03 Outpatient Nathan, Na [facility] [id number] [facility] [address] 11:10:40 [id number] [facility] 2021-09-03 Outpatient Nathan, Na [facility] [id number] [facility] 11:00:37 [id number] [facility] 2021-09-03 Outpatient Nathan, Na [facility] [id number] [facility] [address] 10:59:24 [id number] [facility] 2021-09-24 2021-09-24 ambulatory [facility] [id number] [facility] 2021-08-18 2021-08-18 ambulatory [facility] [id number] [facility] 2021-08-15 2021-08-15 ambulatory [facility] [id number] [facility] 2021-08-15 2021-08-15 ambulatory [facility] [id number] [facility] 2021-07-11 2021-07-11 ambulatory [facility] [id number] [facility] 2021-07-11 2021-07-11 ambulatory [facility] [id number] [facility] 2021-06-24 2021-06-24 ambulatory [facility] [id number] [facility] 2021-05-29 2021-05-29 Outpatient [facility] [id number] [facility] 2021-05-14 2021-05-14 Outpatient [facility] [id number] [facility] 2021-05-14 2021-05-14 Outpatient [facility] [id number] [facility] 2021-04-18 2021-04-18 Outpatient [facility] [id number] [facility] 2021-04-17 2021-04-17 Outpatient [facility] [id number] [facility] 2021-04-09 2021-04-09 Outpatient [facility] [id number] [facility] 2021-04-03 2021-04-03 Outpatient [facility] [id number] [facility] 2021-04-03 2021-04-03 Outpatient [facility] [id number] [facility] 2021-03-13 2021-03-13 Outpatient [facility] [id number] [facility] 2021-03-03 2021-03-03 Outpatient [facility] [id number] [facility] 2021-02-26 2021-02-26 Outpatient [facility] [id number] [facility] 2020-11-07 2020-11-07 Outpatient [facility] [id number] [facility] 2020-11-05 2020-11-05 [facility] [id number] [facility] 2020-10-24 2020-10-24 [facility] [id number] [facility] 2020-10-24 2020-10-24 [facility] [id number] [facility] 2020-05-31 2020-05-31 [facility] [id number] [facility] 2020-03-11 2020-03-11 [facility] [id number] [facility] 15:43:00 15:43:00 t [employer] - Drive [facility] Family Medicine l Medicine Outpati ent Clinics 2020-03-08 2020-03-08 [facility] [id number] 13:45:00 13:45:00 t [employer] - [employer] [facility] Family Medicine l Medicine Outpati ent Clinics 2020-03-07 2020-03-07 [facility] [id number] 17:22:00 17:22:00 t [place] [employer] - Drive [facility] Family Medicine l Medicine Outpati ent Clinics 2020-03-07 2020-03-07 [facility] [id number] [facility] 16:40:00 16:40:00 t [employer] - Drive [facility] Medicine l Medicine Outpati ent Clinics 2020-03-06 2020-03-06 [facility] [id number] 11:04:00 11:04:00 t [facility] [employer] [facility] Medicine l Medicine Outpati ent Clinics 2020-02-20 2020-02-20 [facility] [id number] 10:00:00 10:00:00 t [facility] Medicine l Medicine Outpati ent Clinics 2020-02-19 2020-02-19 [facility] [id number] 08:56:00 08:56:[address] [facility] [address] [facility] Medicine l Medicine Outpati ent Clinics 2019-12-11 2019-12-11 [facility] [id number] 10:21:00 10:21:[address] [facility] Medicine l Medicine Outpati ent Clinics 2019-12-08 2019-12-08 [facility] [id number] 13:15:00 13:15:00 t [place] [employer] s - Drive [facility] Family Medicine l Medicine Outpati ent Clinics 2019-12-07 2019-12-07 [facility] [id number] 10:11:00 10:11:00 t [place] [employer] - Drive [facility] Medicine l Medicine Outpati ent Clinics 2019 2019 [facility] [id number] [address] 16:00:00 16:00:00 t [place] [employer] - Drive [facility] Family Medicine l Medicine Outpati ent Clinics 2019-11-22 2019-11-22 [facility] [id number] 08:28:00 08:28:00 t [place] [employer] - Drive [facility] Medicine l Medicine Outpati ent Clinics 2019-11-21 2019-11-21 [facility] [id number] 09:00:00 09:00:00 t [place] [employer] - Drive [facility] Medicine l Medicine Outpati ent Clinics 2019-08-22 2019-08-22 [facility] [id number] 16:20:00 16:20:00 t [place] [employer] - Drive [facility] Medicine l Medicine Outpati ent Clinics 2019-08-08 2019-08-08 [facility] [id number] [facility] 14:37:00 14:37:00 t [place] [employer] - Drive [facility] Medicine l Medicine Outpati ent Clinics 2019-06-30 2019-06-30 [facility] [id number] [facility] 14:00:00 14:00:00 t [place] [employer] [facility] Medicine Medicine Outpati ent Clinics 2019-06-22 2019-06-22 [facility] [id number] 16:34:00 16:34:00 t [place] [employer] - Drive [facility] Medicine Outpati ent Clinics 2019-06-02 2019-06-02 [facility] [id number] [address] 13:00:00 13:00:00 t [place] [employer] - Drive [facility] Medicine Outpati ent Clinics 2019-03-31 2019-03-31 [facility] [id number] 13:40:00 13:40:00 t [place] [employer] - Drive [facility] Medicine Outpati ent Clinics 2019-03-01 2019-03-01 [facility] [id number] 10:00:00 10:00:00 t [place] [employer] - [employer] [facility] Medicine Outpati ent Clinics 2019-02-20 2019-02-20 [facility] [id number] 10:00:00 10:00:00 t [place] [employer] - Drive [facility] Medicine Outpati ent Clinics 2019-02-14 2019-02-14 [facility] [id number] 09:40:00 09:40:00 t [place] [employer] [facility] Medicine Outpati ent Clinics 2019-02-07 2019-02-07 [facility] [id number] 11:20:00 11:20:00 t [place] [employer] - Drive [facility] Medicine Medicine Outpati ent Clinics 2019-01-05 2019-01-05 [facility] [id number] 15:15:00 15:15:00 t Specialty/U Brigette kes - Specialty rology [facility] /Urology Clinic l Clinic Outpati ent Clinics 2018-12-15 2018-12-15 [facility] [id number] 15:15:00 15:15:00 t Specialty/U Brigette kes - Specialty rology Memori a /Urology Clinic l Clinic Outpati ent Clinics 2018-12-01 2018-12-01 [facility] [id number] 09:48:00 09:48:00 t Urgent [facility] - Care Clinic [facility] l Outpati ent Clinics 2018-11-29 2018-11-29 [facility] [id number] [address] 11:00:00 11:00:00 t [facility] - Care Clinic [facility] l Outpati ent Clinics 2018-05-15 2018-05-15 [facility] [id number] [address] 17:51:00 17:51:00 t [employer] [facility] Medicine Outpati ent Clinics 2018-05-03 2018-05-03 [facility] [id number] 15:05:00 15:05:00 t [employer] [facility] Medicine Outpati ent Clinics 2018-05-03 2018-05-03 [facility] [id number] 08:50:00 08:50:00 t [employer] [facility] Medicine Outpati ent Clinics 2018-04-29 2018-04-29 [facility] [id number] 10:30:00 10:30:00 t [employer] [facility] Medicine Outpati ent Clinics 2018-04-01 2018-04-01 [facility] [id number] [facility] 14:19:00 14:19:00 t [employer] [facility] Medicine Outpati ent Clinics 2018-04-01 2018-04-01 [facility] [id number] 11:15:00 11:15:00 t [employer] [facility] Medicine Outpati ent Clinics Results This patient has no known results.
[2021-11-13] MEDS ORDERED: NA CHLORIDE 0.9% 1,000 ML ONE (13:34)
[2021-11-13] MEDS ORDERED: MORPHINE 4 MG/ML SYR ONE ×2 (13:34→16:48)
[2021-11-13] MEDS ORDERED: FAMOTIDINE 20 MG/2 ML VIAL IV ONE (13:34)
[2021-11-13 14:10] LABS: Absolute Lymphocytes (CBC) 1.8 K/uL (0.7-4.9); Hematocrit 38.1 % (36.0-45.0); Lymphocytes % 15.2 % (15.3-44.8); MPV 7.5 fL (7.6-11.3); RBC Red Blood Cell Count 4.73 M/uL (3.86-4.86)
[2021-11-13 14:46] LABS: Albumin 3.5 g/dL (3.4-5.0); Bilirubin Total 0.3 mg/dL (0.2-1.0); Protein, Total 7.5 g/dL (6.4-8.2)
[2021-11-13 15:40] LABS: Urine Blood Negative (Negative); Urine Glucose Negative (Negative); Urine Protein 1+ (Negative); Urine Specific Gravity 1.025 (1.005-1.030)
--- NOTE | 2021-11-13 15:40 | RAD REPORT ---
EXAM DESCRIPTION: CT - Abdomen Pelvis W Contrast - 11/13/2021 3:05 pm CLINICAL HISTORY: ABD PAIN COMPARISON: Abdomen Pelvis W Contrast dated 04/30/2021 TECHNIQUE: Biphasic, helical CT imaging of the abdomen and pelvis was performed following 100 ml non -ionic IV contrast. No oral contrast administered. All CT scans are performed using dose optimization technique as appropriate and may include automated exposure control or mA/KV adjustment according to patient size. FINDINGS: No suspicious findings in the lung bases. The liver, spleen, and pancreas show no suspicious findings. Gallbladder and biliary tree are also wi thout suspicious finding. Symmetric renal function is seen with no hydronephrosis or suspicious renal mass. No pyelonephritis o r acute parenchymal process. No bladder abnormalities. No adrenal abnormalities. Uterus and ovaries s how no suspicious findings. No stomach or small bowel abnormality. No appendicitis findings. Appendectomy clips are evident. From cecum through the descending colon there is no acute finding. No abnormal stool volume. Sigmoid anas tomosis is present. The colon is distended from the anastomosis to the rectum with moderately large s tool volume. Intussusception at the anastomosis site is not suspected. There is greater stool volume near the anastomosis compared to the prior study ; however, no overall change in orientation of the p roximal and distal limbs of the anastomosis. No wall thickening, edema or stranding in the adjacent f at. No free air, free fluid or inflammatory stranding. No mass or bulky lymphadenopathy. No hernia defec t confirmed. There is laxity of the midline abdominal wall at the umbilicus but no actual defect or i nterval change from the comparison noted. No suspicious bony findings. IMPRESSION: No bowel obstruction, free air or surgically emergent finding identifiable. Moderately large stool volume distends but does not grossly dilate the left-side: From the sigmoid an astomosis to the distal rectum. No wall thickening or edema seen. Intussusception at the anastomotic site is not suspected. No other significant or suspicious finding noted.
[2021-11-13 16:21] LABS: Urine Bacteria <20 /HPF (<20); Urine Mucus 1+ /HPF (NONE SEEN); Urine RBC <5 /HPF (NONE SEEN)
--- NOTE | 2021-11-13 16:53 | EDPHYS ---
Physician Documentation [facility] Name: Tete Hinkle Age: 50 yrs Sex: Female : 1970 Arrival Date: 11/13/2021 Time: 13:17 Bed 14 Private MD: ED Physician Arturo Santiago HPI: 11/13 13:45 This 50 yrs old Female presents to ER via EMS with complaints of cp Abdominal Pain, Constipation, Diarrhea. 13:45 The patient presents with abdominal pain that is diffuse. Onset: The symptoms/episode cp began/occurred today. The symptoms do not radiate. Associated signs and symptoms: Pertinent positives: bleeding from hemorrhoids, Pertinent negatives: chest pain, fever, vomiting. The symptoms are described as crampy. Patient reports taking Dulcolax for constipation last night and now having multiple bowel movements. Historical: - Allergies: 13:22 NKDA; aa5 - PMHx: 13:22 Asthma; Diabetes - NIDDM; Diverticulitis; Hyperlipidemia; Hypertension; Colitis; aa5 Stomach ulcers; - PSHx: 13:22 bowel resection; aa5 - Immunization history:: Flu vaccine is not up to date. - Social history:: Smoking status: Patient/guardian denies using tobacco. ROS: 13:50 Constitutional: Negative for body aches, chills, fever, poor PO intake. cp 13:50 Eyes: Negative for injury, pain, redness, and discharge. cp 13:50 ENT: Negative for drainage from ear(s), ear pain, sore throat, difficulty swallowing, difficulty handling secretions. 13:50 Cardiovascular: Negative for chest pain, palpitations. 13:50 Respiratory: Negative for cough, shortness of breath, wheezing. 13:50 Abdomen/GI: Positive for abdominal pain, rectal bleeding. 13:50 Neuro: Negative for altered mental status, headache, weakness. 13:50 All other systems are negative. Exam: 13:55 Constitutional: The patient appears in no acute distress, alert, awake, non-toxic, well cp developed, well nourished, uncomfortable. 13:55 Head/Face: Normocephalic, atraumatic. cp 13:55 Eyes: Periorbital structures: appear normal, Conjunctiva: normal, no exudate, no injection, Sclera: no appreciated abnormality, Lids and lashes: appear normal, bilaterally. 13:55 ENT: External ear(s): are unremarkable, Nose: is normal, Mouth: Lips: moist, Oral mucosa: moist, Posterior pharynx: Airway: no evidence of obstruction, patent. 13:55 Chest/axilla: Inspection: normal. 13:55 Cardiovascular: Rate: bradycardic, Rhythm: regular. 13:55 Respiratory: the patient does not display signs of respiratory distress, Respirations: normal, no use of accessory muscles, no retractions, labored breathing, is not present, Breath sounds: are clear throughout, no decreased breath sounds, no stridor, no wheezing. 13:55 Abdomen/GI: Inspection: abdomen appears normal, Bowel sounds: active, all quadrants, Palpation: soft, in all quadrants, severe abdominal tenderness, in all quadrants, rebound tenderness, is not appreciated, voluntary guarding, is elicited in all quadrants. 13:55 Back: pain, is absent, ROM is normal. Vital Signs: 13:17 BP 161 / 86; Pulse 56; Resp 18 S; Temp 98.0(O); Pulse Ox 97% on R/A; Weight 113.4 kg aa5 (R); Height 5 ft. 3 in. (160.02 cm) (R); Pain 7/10; 14:45 BP 147 / 71; Pulse 56; Resp 16 S; Pulse Ox 97% on R/A; aa5 13:17 Body Mass Index 44.29 (113.40 kg, 160.02 cm) aa5 MDM: 13:28 Patient medically screened. cp 14:00 Differential diagnosis: appendicitis, bowel obstruction, cholecystitis, Cholelithiasis, cp diverticulitis, GI Bleed, non-specific abd pain, Peptic Ulcer Disease, Perf. Duodenal Ulcer, Perf. Gastric Ulcer. 16:05 ED course: VSS. Patient reports having bowel movement while in ED. cp 16:52 Data reviewed: vital signs, nurses notes, lab test result(s), radiologic studies, CT cp scan. 16:52 Counseling: I had a detailed discussion with the patient and/or guardian regarding: the cp historical points, exam findings, and any diagnostic results supporting the discharge/admit diagnosis, lab results, radiology results, to return to the emergency department if symptoms worsen or persist or if there are any questions or concerns that arise at home. Response to treatment: the patient's symptoms have markedly improved after treatment, VSS. Pain markedly improved. Will discharge to home for continued monitoring. 11/13 13:27 Order name: CBC with Diff; Complete Time: 14:23 cp 11/13 14:23 Interpretation: Normal except: WBC 11.7; MCH 26.1; RDW 16.3; MPV 7.5; CLAUDIA% 77.4; LYM% cp 15.2. 11/13 13:27 Order name: CMP; Complete Time: 15:40 cp 11/13 15:48 Interpretation: Normal except: CL 108; GLUC 120; BUN 19; AST 14; GFR 84; ALK 121; GLOB cp 4.0; A/G 0.9. 11/13 13:27 Order name: Lipase; Complete Time: 15:40 cp 11/13 13:27 Order name: Urine Microscopic Only cp 11/13 15:40 Order name: Urine Dipstick-Ancillary; Complete Time: 15:47 EDMS 11/13 15:41 Order name: Urine --Ancillary (enter results) em1 11/13 13:27 Order name: CT Abd/Pelvis - IV Contrast Only; Complete Time: 15:40 cp 11/13 13:27 Order name: IV Saline Lock; Complete Time: 14:09 cp 11/13 13:27 Order name: Labs collected and sent; Complete Time: 14:09 cp 11/13 13:27 Order name: Urine Dipstick-Ancillary (obtain specimen); Complete Time: 15:39 cp 11/13 13:27 Order name: Urine Test (obtain specimen); Complete Time: 15:39 cp 11/13 16:07 Order name: PO challenge; Complete Time: 17:37 cp Administered Medications: 13:32 Drug: NS 0.9% 1000 ml Route: IV; Rate: 1 bolus; Site: right forearm; aa5 15:00 Follow up: IV Status: Completed infusion; IV Intake: 1000ml ss 13:32 Drug: Pepcid (famotidine) 20 mg Route: IVP; Site: right forearm; aa5 17:36 Follow up: Response: No adverse reaction ss 13:34 Drug: morphine 4 mg Route: IVP; Site: right forearm; aa5 14:00 Follow up: Response: No adverse reaction; Pain is decreased aa5 16:53 Drug: morphine 4 mg Route: IVP; Site: right forearm; aa5 17:35 Follow up: Response: No adverse reaction; Pain is decreased ss Disposition: 17:50 Co-signature as Attending Physician, Arturo Santiago MD I agree with the assessment and kdr plan of care. Disposition Summary: 11/13/21 16:52 Discharge Ordered Location: Home cp Problem: new cp Symptoms: have improved cp Condition: Stable cp Diagnosis - Abdominal pain, unspecified cp Followup: cp - With: Private Physician - When: 1 - 2 days - Reason: Worsening of condition Discharge Instructions: - Discharge Summary Sheet cp - Abdominal Pain, Adult cp - Constipation, Adult cp Forms: - Medication Reconciliation Form cp - Thank You Letter cp - Antibiotic Education cp - Prescription Opioid Use cp Prescriptions: - dicyclomine 20 mg Oral Tablet - take 1 tablet by ORAL route 4 times per day; 30 tablet; Refills: 0, Product cp Selection Permitted Signatures: Dispatcher [employer] EDArturo Kelly MD MD [facility] Michelle Fang RN RN aa5 Brandon Wright PA PA cp Rose Blackwell RN ss Corrections: (The following items were deleted from the chart) 15:48 15:41 Normal except: CL 108; GLUC 120; BUN 19; GFR 84. cp cp
--- NOTE | 2021-11-13 16:53 | ER ---
Nurse's Notes [facility] Name: Tete Hinkle Age: 50 yrs Sex: Female : 1970 Arrival Date: 11/13/2021 Time: 13:17 Bed 14 Private MD: Diagnosis: Abdominal pain, unspecified Presentation: 11/13 13:17 Chief complaint: EMS states: pt had constipation and took Dulcolax last night. Today pt aa5 started with diarrhea and generalized abd cramping. Pt also c/o bleeding and painful hemorrhoids. Denies nausea/vomiting. Coronavirus screen: At this time, the client does not indicate any symptoms associated with coronavirus-19. Ebola Screen: No symptoms or risks identified at this time. Initial Sepsis Screen: Does the patient meet any 2 criteria? No. Patient's initial sepsis screen is negative. Does the patient have a suspected source of infection? No. Patient's initial sepsis screen is negative. Risk Assessment: Do you want to hurt yourself or someone else? Patient reports no desire to harm self or others. Onset of symptoms was November 13, 2021. 13:17 Acuity: DEANDRA 3 aa5 13:17 Method Of Arrival: EMS: [facility] aa5 Historical: - Allergies: 13:22 NKDA; aa5 - PMHx: 13:22 Asthma; Diabetes - NIDDM; Diverticulitis; Hyperlipidemia; Hypertension; Colitis; aa5 Stomach ulcers; - PSHx: 13:22 bowel resection; aa5 - Immunization history:: Flu vaccine is not up to date. - Social history:: Smoking status: Patient/guardian denies using tobacco. Screenin:20 Abuse screen: Denies threats or abuse. Nutritional screening: No deficits noted. aa5 Tuberculosis screening: No symptoms or risk factors identified. Fall Risk None identified. Assessment: 13:20 General: Appears uncomfortable, Behavior is calm, cooperative. Pain: Complains of pain aa5 in right upper quadrant, left upper quadrant, right lower quadrant and left lower quadrant Pain currently is 7 out of 10 on a pain scale. Quality of pain is described as crampy, Pain began today Is continuous. Neuro: Level of Consciousness is awake, alert, obeys commands, Oriented to person, place, time, situation. Cardiovascular: Heart tones S1 S2 present Rhythm is regular. Respiratory: Airway is patent Respiratory effort is even, unlabored, Respiratory pattern is regular, symmetrical. GI: Abdomen is round non-distended, Bowel sounds present X 4 quads. Abd is soft X 4 quads Abdomen is tender to palpation X 4 quads. Reports diarrhea, Patient currently denies nausea, vomiting. : No signs and/or symptoms were reported regarding the genitourinary system. EENT: No signs and/or symptoms were reported regarding the EENT system. Derm: Skin is dry, Skin is normal, Skin temperature is warm. Musculoskeletal: Range of motion: intact in all extremities. 14:45 Reassessment: Patient is alert, oriented x 3, equal unlabored respirations, skin aa5 warm/dry/pink. 14:45 General: Appears comfortable. aa5 16:53 Reassessment: Patient is alert, oriented x 3, equal unlabored respirations, skin aa5 warm/dry/pink. Patient states feeling better. 16:53 Pain: Pain currently is 6 out of 10 on a pain scale. aa5 Vital Signs: 13:17 BP 161 / 86; Pulse 56; Resp 18 S; Temp 98.0(O); Pulse Ox 97% on R/A; Weight 113.4 kg aa5 (R); Height 5 ft. 3 in. (160.02 cm) (R); Pain 7/10; 14:45 BP 147 / 71; Pulse 56; Resp 16 S; Pulse Ox 97% on R/A; aa5 13:17 Body Mass Index 44.29 (113.40 kg, 160.02 cm) aa5 ED Course: 13:17 Patient arrived in ED. aa5 13:17 Brandon Wright PA is PHCP. cp 13:17 Arturo Santiago MD is Attending Physician. cp 13:17 Arm band placed on Patient placed in an exam room, on a stretcher. aa5 13:17 Patient has correct armband on for positive identification. Bed in low position. Call aa5 light in reach. Side rails up X2. Pulse ox on. NIBP on. 13:22 Triage completed. aa5 13:23 Michelle Fang, RN is Primary Nurse. aa5 13:30 Inserted saline lock: 22 gauge in right forearm, using aseptic technique. IV inserted aa5 by HARRIS Tijerina. 15:07 CT Abd/Pelvis - IV Contrast Only In Process Unspecified. EDMS 17:34 No provider procedures requiring assistance completed. IV discontinued, intact, ss bleeding controlled, No redness/swelling at site. Pressure dressing applied. Administered Medications: 13:32 Drug: NS 0.9% 1000 ml Route: IV; Rate: 1 bolus; Site: right forearm; aa5 15:00 Follow up: IV Status: Completed infusion; IV Intake: 1000ml ss 13:32 Drug: Pepcid (famotidine) 20 mg Route: IVP; Site: right forearm; aa5 17:36 Follow up: Response: No adverse reaction ss 13:34 Drug: morphine 4 mg Route: IVP; Site: right forearm; aa5 14:00 Follow up: Response: No adverse reaction; Pain is decreased aa5 16:53 Drug: morphine 4 mg Route: IVP; Site: right forearm; aa5 17:35 Follow up: Response: No adverse reaction; Pain is decreased ss Intake: 15:00 IV: 1000ml; Total: 1000ml. ss Outcome: 16:52 Discharge ordered by MD. cp 17:34 Discharged to home via wheelchair. ss 17:34 Condition: good 17:34 Discharge instructions given to patient, Instructed on discharge instructions, follow up and referral plans. medication usage, Demonstrated understanding of instructions, follow-up care, medications, Prescriptions given X 1. 17:35 Patient left the ED. ss Signatures: Dispatcher [employer] EDMS Michelle Fang RN RN aa5 Rose Blackwell RN RN ss Brandon Wright, PA PA cp Corrections: (The following items were deleted from the chart) 17:38 16:45 Reassessment: Patient is alert, oriented x 3, equal unlabored respirations, skin aa5 warm/dry/pink. Patient states feeling better. aa5
[2021-11-13 19:49] LABS: Urine Specific Gravity/Preg 1.025 (1.005-1.030)
[2021-11-13 21:25] VITALS: TEMP 98; O2SAT 97
[2021-11-13 21:26] VITALS: BP 147/71
== END 2021-11-13 17:35 | disposition home or self-care (01) ==
LOC: ER 13:06
DX: R10.9 Unspecified abdominal pain (principal); K59.00 Constipation, unspecified; E11.9 Type 2 diabetes mellitus without complications; I10 Essential (primary) hypertension
CPT/HCPCS: 96361; 85025; 36415; 81025; 83690; 80053; 74177; 96375; 96374; 99284; Q9967; J7030; 81003; 81015

== ENCOUNTER 2023-03-03 12:46 | Emergency (ER) | payer OTHER ==
--- OUTSIDE RECORDS SUMMARY | 2023-03-03 12:56 | XMS REPORT | Continuity of Care Document ---
:1970 [facility] [address] [facility] [address] [place] [address] Care Team Providers Name Role Phone Frantz Herndon Attending Clinician Unavailable Heidi Day Attending Clinician Unavailable Shila Nathan Attending Clinician Unavailable Payers Payer Name Policy Type Policy Number Effective Date Expiration Date S christian Ambetter from [id number] 2017-08-09 Common [facility] 00:00:00 - [facility] Ambetter from [id number] 2017-08-09 Common [facility] 00:00:00 - [facility] Ambetter from [id number] 2017-08-09 [facility] 00:00:00 - [facility] Ambetter from [id number] 2017-08-09 Common [facility] 00:00:00 - [facility] Ambetter from [id number] 2017-08-09 [facility] 00:00:00 - [facility] Ambetter from [id number] 2017-08-09 Common [facility] 00:00:00 - [facility] Ambetter from [id number] 2017-08-09 Common [facility] 00:00:00 - [facility] Ambetter from [id number] 2017-08-09 Common [facility] 00:00:00 - [facility] Ambetter from [id number] 2017-08-09 [facility] 00:00:00 - [facility] Ambetter from [id number] 2017-08-09 Common [facility] 00:00:00 - [facility] Ambetter from [id number] 2017-08-09 [facility] 00:00:00 - [facility] Ambetter from [id number] 2017-08-09 Common [facility] 00:00:00 - [facility] Problems Condition Condition Condition Status Onset Resolution Last Treating Co mments Source Name Details Category Date Date Treatment Clinician Date Allergic Problem Common rhinitis [facility] Cough Problem Common [facility] Sciatica Problem Common [facility] Pneumonia Problem [facility] Hyperlipid Problem Commo n emia [facility] [id number] Problem [facility] [id number] Problem [facility] [id number] Problem [facility] [id number] Problem [facility] [id number] Problem [facility] [id number] Problem [facility] [id number] Problem Common [facility] [id number] Problem [facility] [id number] Problem Common [facility] Impact[facility] Problem Common cerumen Spirit [facility] [id number] Problem [facility] [id number] Problem [facility] Vitamin D Problem Common deficiency Spirit [facility] [id number] Problem [facility] [id number] Problem [facility] Carpal Problem Common tunnel Spirit syndrome - [facility] [id number] Problem [facility] [id number] Problem [facility] [id number] Problem [facility] [id number] Problem [facility] 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 [facility] Chronic Problem Common fatigue Spirit syndrome - [facility] [id number] [place] [id number] [facility] - [facility] [id number] Problem Common [facility] [id number] Problem Common [facility] [id number] Problem [facility] [id number] Problem [facility] [id number] Problem [facility] [id number] Problem Common [facility] Obesity Problem Common [facility] [id number] Problem [facility] Allergies, Adverse Reactions, Alerts This patient has no known allergies or adverse reactions. Social History Social Habit Start Date Stop Date Quantity Comments Source History of Tobacco Use Co mmon [facility] Sex Assigned At Com [facility] Smoking Status Start Date Stop Date Source Never Smoker [facility] Former Smoker 2021-11-26 00:00:00 2021-11-26 00:00:00 Common S pirit [facility] Medications Ordered Filled Start Stop Current Ordering Indication Dosage Frequency Signature Comments Components Source Medication Medication Date Date Medication? Clinician (SIG) Name Name methylPREDN methylPREDN 2022- No QD methylPRED ISolone 4 ISolone 4 08-17 NISolone 4 MG MG 00:00: 00:00 MG 00 :00 methylPREDN methylPREDN 2022- No QD methylPRED ISolone 4 ISolone 4 08-17 NISolone 4 MG MG 00:00: 00:00 MG 00 :00 methylPREDN methylPREDN 2022- No QD methylPRED ISolone 4 ISolone 4 08-17 NISolone 4 MG MG 00:00: 00:00 MG 00 :00 methylPREDN methylPREDN 2022- No QD methylPRED ISolone 4 ISolone 4 08-17 NISolone 4 MG MG 00:00: 00:00 MG 00 :00 Benzonatate Benzonatate 2021- TID Benzonatat 200 MG 200 MG 03-11 e 200 MG 00:00: 00:00 00 :00 Cefdinir Cefdinir 2021-0 2021- No 1{capsu BID Cefdinir 300 MG 300 MG 03-11 le} 300 MG 00:00: 00:00 00 :00 Benzonatate Benzonatate 2021-0 2- No TID Benzonatat 200 MG 200 MG 03-11 e 200 MG 00:00: 00:00 00 :00 Cefdinir Cefdinir 2021-0 2021- No 1{capsu BID Cefdinir 300 MG 300 MG 03-11 le} 300 MG 00:00: 00:00 00 :00 predniSONE predniSONE 2021-2021- No 1{table QD predniSONE 20 MG 20 MG 03-11 t_with_ 20 MG 00:00: 00:00 food_or 00 :00 _milk} predniSONE predniSONE 2021-2021- No 1{table QD predniSONE 20 MG 20 MG 03-11 t_with_ 20 MG 00:00: 00:00 food_or 00 :00 _milk} Fluconazole Fluconazole 2021-2021- No 1{table Fluconazol 150 MG 150 MG 03-11 t} e 150 MG 00:00: 00:00 00 :00 Fluconazole Fluconazole 2021-0 2021- No 1{table Fluconazol 150 MG 150 MG 03-11 t} e 150 MG 00:00: 00:00 00 :00 Albuterol Albuterol No 2{puffs Albuterol Sulfate HFA Sulfate HFA 7-07 } Sulfate 108 (90 108 (90 00:00: HFA 108 Base) Base) 00 (90 Base) MCG/ACT MCG/ACT MCG/ACT Flonase 50 Flonase 50 No 2{spray QD Flonase 50 MCG/ACT MCG/ACT 7-07 _in_eac MCG/ACT 00:00: h_nostr 00 il} Albuterol Albuterol No 2{puffs Albuterol Sulfate HFA Sulfate HFA 7-07 } Sulfate 108 (90 108 (90 00:00: HFA 108 Base) Base) 00 (90 Base) MCG/ACT MCG/ACT MCG/ACT Flonase 50 Flonase 50 No 2{spray QD Flonase 50 MCG/ACT MCG/ACT 7-07 _in_eac MCG/ACT 00:00: h_nostr 00 il} Albuterol Albuterol 0 No 2{puffs Albuterol Sulfate HFA Sulfate HFA 7-07 } Sulfate 108 (90 108 (90 00:00: HFA 108 Base) Base) 00 (90 Base) MCG/ACT MCG/ACT MCG/ACT Flonase 50 Flonase 50 2021- No 2{spray QD Flonase 50 MCG/ACT MCG/ACT 7-07 _in_eac MCG/ACT 00:00: h_nostr 00 il} Albuterol Albuterol No 2{puffs Albuterol Sulfate HFA Sulfate HFA 7-07 } Sulfate 108 (90 108 (90 00:00: HFA 108 Base) Base) 00 (90 Base) MCG/ACT MCG/ACT MCG/ACT Flonase 50 Flonase 50 No 2{spray QD Flonase 50 MCG/ACT MCG/ACT 7-07 _in_eac MCG/ACT 00:00: h_nostr 00 il} Albuterol Albuterol No 2{puffs Albuterol Sulfate HFA Sulfate HFA 7-07 } Sulfate 108 (90 108 (90 00:00: HFA 108 Base) Base) 00 (90 Base) MCG/ACT MCG/ACT MCG/ACT Albuterol Albuterol 0 No 2{puffs Albuterol Sulfate HFA Sulfate HFA 7-07 } Sulfate 108 (90 108 (90 00:00: HFA 108 Base) Base) 00 (90 Base) MCG/ACT MCG/ACT MCG/ACT Albuterol Albuterol No 2{puffs Albuterol Sulfate HFA Sulfate HFA 7-07 } Sulfate 108 (90 108 (90 00:00: HFA 108 Base) Base) 00 (90 Base) MCG/ACT MCG/ACT MCG/ACT Albuterol Albuterol 0 No 2{puffs Albuterol Sulfate HFA Sulfate HFA 7-07 } Sulfate 108 (90 108 (90 00:00: HFA 108 Base) Base) 00 (90 Base) MCG/ACT MCG/ACT MCG/ACT Albuterol Albuterol 2021-0 No 2{puffs Albuterol Sulfate HFA Sulfate HFA 7-07 } Sulfate 108 (90 108 (90 00:00: HFA 108 Base) Base) 00 (90 Base) MCG/ACT MCG/ACT MCG/ACT Albuterol Albuterol 2021-0 No 2{puffs Albuterol Sulfate HFA Sulfate HFA 7-07 } Sulfate 108 (90 108 (90 00:00: HFA 108 Base) Base) 00 (90 Base) MCG/ACT MCG/ACT MCG/ACT Albuterol Albuterol 2021-0 No 2{puffs Albuterol Sulfate HFA Sulfate HFA 7-07 } Sulfate 108 (90 108 (90 00:00: HFA 108 Base) Base) 00 (90 Base) MCG/ACT MCG/ACT MCG/ACT Albuterol Albuterol 2021-0 No 2{puffs Albuterol Sulfate HFA Sulfate HFA 7-07 } Sulfate 108 (90 108 (90 00:00: HFA 108 Base) Base) 00 (90 Base) MCG/ACT MCG/ACT MCG/ACT Albuterol Albuterol 2021-0 No 2{puffs Sulfate HFA Sulfate HFA 7-07 } 108 (90 108 (90 00:00: Base) Base) 00 MCG/ACT MCG/ACT Benzonatate Benzonatate 2021-0 2021- No TID Benzonatat 200 MG 200 MG 02-12 e 200 MG 00:00: 00:00 00 :00 Benzonatate Benzonatate 2021-0 2- No TID Benzonatat 200 MG 200 MG 02-12 e 200 MG 00:00: 00:00 00 :00 Benzonatate Benzonatate 2021-0 2- No TID Benzonatat 200 MG 200 MG 02-12 e 200 MG 00:00: 00:00 00 :00 predniSONE predniSONE 2021-0 2021- No QD predniSONE 20 MG 20 MG 02-12 20 MG 00:00: 00:00 00 :00 Azithromyci Azithromyci 2021-0 2- No QD Azithromyc n 250 MG n 250 MG 02-12 in 250 MG 00:00: 00:00 00 :00 predniSONE predniSONE 2021-0 2- No QD predniSONE 20 MG 20 MG 02-12 20 MG 00:00: 00:00 00 :00 Azithromyci Azithromyci 2021-0 2- No QD Azithromyc n 250 MG n 250 MG 02-12 in 250 MG 00:00: 00:00 00 :00 predniSONE predniSONE 2021-0 2- No QD predniSONE 20 MG 20 MG 02-12 20 MG 00:00: 00:00 00 :00 Azithromyci Azithromyci 2021-0 2- No QD Azithromyc n 250 MG n 250 MG 02-12 in 250 MG 00:00: 00:00 00 :00 Benzonatate Benzonatate 2021-0 2021- No 1{capsu TID Benzonatat 100 MG 100 MG 08-18 le_as_n e 100 MG 00:00: 00:00 eeded} 00 :00 Benzonatate Benzonatate 2021-0 2- No 1{capsu TID Benzonatat 100 MG 100 MG 08-18 le_as_n e 100 MG 00:00: 00:00 eeded} 00 :00 Azithromyci Azithromyci 2020-1 2020- No QD Azithromyc n 250 MG n 250 MG 09-11 in 250 MG 00:00: 00:00 00 :00 Azithromyci Azithromyci 2020-1 1- No QD Azithromyc n 250 MG n 250 MG 09-11 in 250 MG 00:00: 00:00 00 :00 Glimepiride Glimepiride 1 No QD Glimepirid 2 MG 2 MG 1-16 e 2 MG 00:00: 00 Glimepiride Glimepiride 2020-1 No QD Glimepirid 2 MG 2 MG 1-16 e 2 MG 00:00: 00 Glimepiride Glimepiride 2020-1 No QD Glimepirid 2 MG 2 MG 1-16 e 2 MG 00:00: 00 Glimepiride Glimepiride 2020-1 No QD Glimepirid 2 MG 2 MG 1-16 e 2 MG 00:00: 00 Glimepiride Glimepiride 2020-08 No QD Glimepirid 2 MG 2 MG 1-16 e 2 MG 00:00: 00 Glimepiride Glimepiride 2020- No QD Glimepirid 2 MG 2 MG 1-16 e 2 MG 00:00: 00 Glimepiride Glimepiride 2020- No QD Glimepirid 2 MG 2 MG 1-16 e 2 MG 00:00: 00 Ergocalcife Ergocalcife 2020- 2022- No 1{capsu Ergocalcif rol 45038 rol 57361 08-24 le} george [id number] UNIT UNIT 00:00: 00:00 UNIT 00 :00 Ergocalcife Ergocalcife 2020- 2022- No 1{capsu Ergocalcif rol 10603 rol 39266 08-24 le} george [id number] UNIT UNIT 00:00: 00:00 UNIT 00 :00 Ergocalcife Ergocalcife 2020- 2022- No 1{capsu Ergocalcif rol 14431 rol 21871 08-24 le} george [id number] UNIT UNIT 00:00: 00:00 UNIT 00 :00 Ergocalcife Ergocalcife 2020- 2022- No 1{capsu Ergocalcif rol 18399 rol 23150 08-24 le} george [id number] UNIT UNIT 00:00: 00:00 UNIT 00 :00 Ergocalcife Ergocalcife 2020- 2022- No 1{capsu Ergocalcif rol 56755 rol 47635 08-24 le} george [id number] UNIT UNIT 00:00: 00:00 UNIT 00 :00 Ergocalcife Ergocalcife 2020- 2022- No 1{capsu Ergocalcif rol 25924 rol 96719 08-24 le} george [id number] UNIT UNIT 00:00: 00:00 UNIT 00 :00 Famotidine Famotidine 2020-0 No 1{table BID Famotidine 20 MG 20 MG 9-10 t} 20 MG 00:00: 00 Famotidine Famotidine 2020-0 No 1{table BID Famotidine 20 MG 20 MG 9-10 t} 20 MG 00:00: 00 Famotidine Famotidine 1-0 No 1{table BID Famotidine 20 MG 20 MG 9-10 t} 20 MG 00:00: 00 Famotidine Famotidine 1-0 No 1{table BID Famotidine 20 MG 20 MG 9-10 t} 20 MG 00:00: 00 Famotidine Famotidine 1-0 No 1{table BID Famotidine 20 MG 20 MG 9-10 t} 20 MG 00:00: 00 Famotidine Famotidine 1-0 No 1{table BID Famotidine 20 MG 20 MG 9-10 t} 20 MG 00:00: 00 Famotidine Famotidine 1-0 No 1{table BID Famotidine 20 MG 20 MG 9-10 t} 20 MG 00:00: 00 Famotidine Famotidine 1-0 No 1{table BID Famotidine 20 MG 20 MG 9-10 t} 20 MG 00:00: 00 Famotidine Famotidine 1-0 No 1{table BID Famotidine 20 MG 20 MG 9-10 t} 20 MG 00:00: 00 Famotidine Famotidine 1-0 No 1{table BID Famotidine 20 MG 20 MG 9-10 t} 20 MG 00:00: 00 Famotidine Famotidine 1-0 No 1{table BID Famotidine 20 MG 20 MG 9-10 t} 20 MG 00:00: 00 Famotidine Famotidine 1-0 No 1{table BID Famotidine 20 MG 20 MG 9-10 t} 20 MG 00:00: 00 Famotidine Famotidine 1-0 No 1{table BID Famotidine 20 MG 20 MG 9-10 t} 20 MG 00:00: 00 Famotidine Famotidine 1-0 No 1{table BID Famotidine 20 MG 20 MG 9-10 t} 20 MG 00:00: 00 Famotidine Famotidine 1-0 No 1{table BID Famotidine 20 MG 20 MG 9-10 t} 20 MG 00:00: 00 Famotidine Famotidine 1-0 No 1{table BID Famotidine 20 MG 20 MG 9-10 t} 20 MG 00:00: 00 Famotidine Famotidine 1-0 No 1{table BID Famotidine 20 MG 20 MG 9-10 t} 20 MG 00:00: 00 Famotidine Famotidine 2020-0 No 1{table BID Famotidine 20 MG 20 MG 9-10 t} 20 MG 00:00: 00 Famotidine Famotidine 2020-0 No 1{table BID Famotidine 20 MG 20 MG 9-10 t} 20 MG 00:00: 00 Famotidine Famotidine 2020-0 No 1{table BID Famotidine 20 MG 20 MG 9-10 t} 20 MG 00:00: 00 Famotidine Famotidine 2020-0 No 1{table BID Famotidine 20 MG 20 MG 9-10 t} 20 MG 00:00: 00 Famotidine Famotidine 2020-0 No 1{table BID Famotidine 20 MG 20 MG 9-10 t} 20 MG 00:00: 00 Famotidine Famotidine 2020-0 No 1{table BID Famotidine 20 MG 20 MG 9-10 t} 20 MG 00:00: 00 Famotidine Famotidine 2020-0 No 1{table BID Famotidine 20 MG 20 MG 9-10 t} 20 MG 00:00: 00 Famotidine Famotidine 2020-0 No 1{table BID Famotidine 20 MG 20 MG 9-10 t} 20 MG 00:00: 00 Famotidine Famotidine 2020-0 No 1{table BID Famotidine 20 MG 20 MG 9-10 t} 20 MG 00:00: 00 Famotidine Famotidine 2020-0 No 1{table BID Famotidine 20 MG 20 MG 9-10 t} 20 MG 00:00: 00 Famotidine Famotidine 2020-0 No 1{table BID 20 MG 20 MG 9-10 t} 00:00: 00 Albuterol Albuterol 2020-0 Yes Chuy 1 puff as Common Sulfate HFA Sulfate HFA 7-14 Thomas needed Spirit 00:00: - [facility] 00 [facility] Albuterol Albuterol 2020-0 No 1{puff_ Albuterol Sulfate HFA Sulfate HFA 7-14 as_need Sulfate 108 (90 108 (90 00:00: ed} HFA 108 Base) Base) 00 (90 Base) MCG/ACT MCG/ACT MCG/ACT Albuterol Albuterol 2020-0 No 1{puff_ Albuterol Sulfate HFA Sulfate HFA 7-14 as_need Sulfate 108 (90 108 (90 00:00: ed} HFA 108 Base) Base) 00 (90 Base) MCG/ACT MCG/ACT MCG/ACT Albuterol Albuterol 2020-0 No 1{puff_ Albuterol Sulfate HFA Sulfate HFA 7-14 as_need Sulfate 108 (90 108 (90 00:00: ed} HFA 108 Base) Base) 00 (90 Base) MCG/ACT MCG/ACT MCG/ACT Albuterol Albuterol 2020-0 No 1{puff_ Albuterol Sulfate HFA Sulfate HFA 7-14 as_need Sulfate 108 (90 108 (90 00:00: ed} HFA 108 Base) Base) 00 (90 Base) MCG/ACT MCG/ACT MCG/ACT Albuterol Albuterol 2020-0 No 1{puff_ Albuterol Sulfate HFA Sulfate HFA 7-14 as_need Sulfate 108 (90 108 (90 00:00: ed} HFA 108 Base) Base) 00 (90 Base) MCG/ACT MCG/ACT MCG/ACT Albuterol Albuterol 2020-0 No 1{puff_ Albuterol Sulfate HFA Sulfate HFA 7-14 as_need Sulfate 108 (90 108 (90 00:00: ed} HFA 108 Base) Base) 00 (90 Base) MCG/ACT MCG/ACT MCG/ACT Albuterol Albuterol 2020-0 No 1{puff_ Albuterol Sulfate HFA Sulfate HFA 7-14 as_need Sulfate 108 (90 108 (90 00:00: ed} HFA 108 Base) Base) 00 (90 Base) MCG/ACT MCG/ACT MCG/ACT Albuterol Albuterol 2020-0 No 1{puff_ Albuterol Sulfate HFA Sulfate HFA 7-14 as_need Sulfate 108 (90 108 (90 00:00: ed} HFA 108 Base) Base) 00 (90 Base) MCG/ACT MCG/ACT MCG/ACT Albuterol Albuterol 2020-0 No 1{puff_ Albuterol Sulfate HFA Sulfate HFA 7-14 as_need Sulfate 108 (90 108 (90 00:00: ed} HFA 108 Base) Base) 00 (90 Base) MCG/ACT MCG/ACT MCG/ACT Albuterol Albuterol 2020-0 No 1{puff_ Albuterol Sulfate HFA Sulfate HFA 7-14 as_need Sulfate 108 (90 108 (90 00:00: ed} HFA 108 Base) Base) 00 (90 Base) MCG/ACT MCG/ACT MCG/ACT Albuterol Albuterol 2020-0 No 1{puff_ Albuterol Sulfate HFA Sulfate HFA 7-14 as_need Sulfate 108 (90 108 (90 00:00: ed} HFA 108 Base) Base) 00 (90 Base) MCG/ACT MCG/ACT MCG/ACT Albuterol Albuterol 2020-0 No 1{puff_ Albuterol Sulfate HFA Sulfate HFA 7-14 as_need Sulfate 108 (90 108 (90 00:00: ed} HFA 108 Base) Base) 00 (90 Base) MCG/ACT MCG/ACT MCG/ACT Albuterol Albuterol 2020-0 No 1{puff_ Albuterol Sulfate HFA Sulfate HFA 7-14 as_need Sulfate 108 (90 108 (90 00:00: ed} HFA 108 Base) Base) 00 (90 Base) MCG/ACT MCG/ACT MCG/ACT Albuterol Albuterol 2020-0 No 1{puff_ Albuterol Sulfate HFA Sulfate HFA 7-14 as_need Sulfate 108 (90 108 (90 00:00: ed} HFA 108 Base) Base) 00 (90 Base) MCG/ACT MCG/ACT MCG/ACT Albuterol Albuterol 2020-0 No 1{puff_ Albuterol Sulfate HFA Sulfate HFA 7-14 as_need Sulfate 108 (90 108 (90 00:00: ed} HFA 108 Base) Base) 00 (90 Base) MCG/ACT MCG/ACT MCG/ACT Albuterol Albuterol 2020-0 No 1{puff_ Albuterol Sulfate HFA Sulfate HFA 7-14 as_need Sulfate 108 (90 108 (90 00:00: ed} HFA 108 Base) Base) 00 (90 Base) MCG/ACT MCG/ACT MCG/ACT Albuterol Albuterol 2020-0 No 1{puff_ Albuterol Sulfate HFA Sulfate HFA 7-14 as_need Sulfate 108 (90 108 (90 00:00: ed} HFA 108 Base) Base) 00 (90 Base) MCG/ACT MCG/ACT MCG/ACT Albuterol Albuterol 2020-0 No 1{puff_ Albuterol Sulfate HFA Sulfate HFA 7-14 as_need Sulfate 108 (90 108 (90 00:00: ed} HFA 108 Base) Base) 00 (90 Base) MCG/ACT MCG/ACT MCG/ACT Albuterol Albuterol 2020-0 No 1{puff_ Albuterol Sulfate HFA Sulfate HFA 7-14 as_need Sulfate 108 (90 108 (90 00:00: ed} HFA 108 Base) Base) 00 (90 Base) MCG/ACT MCG/ACT MCG/ACT Albuterol Albuterol 2020-0 No 1{puff_ Albuterol Sulfate HFA Sulfate HFA 7-14 as_need Sulfate 108 (90 108 (90 00:00: ed} HFA 108 Base) Base) 00 (90 Base) MCG/ACT MCG/ACT MCG/ACT Albuterol Albuterol 2020-0 No 1{puff_ Albuterol Sulfate HFA Sulfate HFA 7-14 as_need Sulfate 108 (90 108 (90 00:00: ed} HFA 108 Base) Base) 00 (90 Base) MCG/ACT MCG/ACT MCG/ACT Albuterol Albuterol 2020-0 No 1{puff_ Albuterol Sulfate HFA Sulfate HFA 7-14 as_need Sulfate 108 (90 108 (90 00:00: ed} HFA 108 Base) Base) 00 (90 Base) MCG/ACT MCG/ACT MCG/ACT Albuterol Albuterol 2020-0 No 1{puff_ Albuterol Sulfate HFA Sulfate HFA 7-14 as_need Sulfate 108 (90 108 (90 00:00: ed} HFA 108 Base) Base) 00 (90 Base) MCG/ACT MCG/ACT MCG/ACT Albuterol Albuterol 2020-0 No 1{puff_ Albuterol Sulfate HFA Sulfate HFA 7-14 as_need Sulfate 108 (90 108 (90 00:00: ed} HFA 108 Base) Base) 00 (90 Base) MCG/ACT MCG/ACT MCG/ACT Albuterol Albuterol 2020-0 No 1{puff_ Albuterol Sulfate HFA Sulfate HFA 7-14 as_need Sulfate 108 (90 108 (90 00:00: ed} HFA 108 Base) Base) 00 (90 Base) MCG/ACT MCG/ACT MCG/ACT Albuterol Albuterol 2020-0 No 1{puff_ Albuterol Sulfate HFA Sulfate HFA 7-14 as_need Sulfate 108 (90 108 (90 00:00: ed} HFA 108 Base) Base) 00 (90 Base) MCG/ACT MCG/ACT MCG/ACT Albuterol Albuterol 2020-0 No 1{puff_ Albuterol Sulfate HFA Sulfate HFA 7-14 as_need Sulfate 108 (90 108 (90 00:00: ed} HFA 108 Base) Base) 00 (90 Base) MCG/ACT MCG/ACT MCG/ACT Albuterol Albuterol 2020-0 No 1{puff_ Albuterol Sulfate HFA Sulfate HFA 7-14 as_need Sulfate 108 (90 108 (90 00:00: ed} HFA 108 Base) Base) 00 (90 Base) MCG/ACT MCG/ACT MCG/ACT Albuterol Albuterol 2020-0 No 1{puff_ Albuterol Sulfate HFA Sulfate HFA 7-14 as_need Sulfate 108 (90 108 (90 00:00: ed} HFA 108 Base) Base) 00 (90 Base) MCG/ACT MCG/ACT MCG/ACT Albuterol Albuterol 2020-0 No 1{puff_ Albuterol Sulfate HFA Sulfate HFA 7-14 as_need Sulfate 108 (90 108 (90 00:00: ed} HFA 108 Base) Base) 00 (90 Base) MCG/ACT MCG/ACT MCG/ACT Albuterol Albuterol 2020-0 No 1{puff_ Sulfate HFA Sulfate HFA 7-14 as_need 108 (90 108 (90 00:00: ed} Base) Base) 00 MCG/ACT MCG/ACT Kenalog Kenalog 2020-0 No 40mg Common (Triamcinol (Triamcinol 1-14 S pirit one) one) 00:00: - [facility] 00 [facility] Kenalog Kenalog 2020-0 No 40mg Common (Triamcinol (Triamcinol 1-14 S pirit one) one) 00:00: - [facility] 00 [facility] Kenalog Kenalog 2020-0 No 40mg Common (Triamcinol (Triamcinol 1-14 S pirit one) one) 00:00: - [facility] 00 [facility] Kenalog Kenalog 2020-0 No 40mg Common (Triamcinol (Triamcinol 1-14 S pirit one) one) 00:00: - [facility] 00 [facility] Kenalog Kenalog 2020-0 No 40mg Common (Triamcinol (Triamcinol 1-14 S pirit one) one) 00:00: - [facility] 00 [facility] Kenalog Kenalog 2020-0 No 40mg Common (Triamcinol (Triamcinol 1-14 S pirit one) one) 00:00: - [facility] 00 [facility] Kenalog Kenalog 2020-0 No 40mg Common (Triamcinol (Triamcinol 1-14 S pirit one) one) 00:00: - [facility] 00 [facility] Kenalog Kenalog 2020-0 No 40mg Common (Triamcinol (Triamcinol 1-14 S pirit one) one) 00:00: - [facility] 00 [facility] Kenalog Kenalog 2020-0 No 40mg Common (Triamcinol (Triamcinol 1-14 S pirit one) one) 00:00: - [facility] 00 [facility] Kenalog Kenalog 2020-0 No 40mg Common (Triamcinol (Triamcinol 1-14 S pirit one) one) 00:00: - [facility] 00 [facility] Kenalog Kenalog 2020-0 No 40mg Common (Triamcinol (Triamcinol 1-14 S pirit one) one) 00:00: - [facility] 00 [facility] Kenalog Kenalog 2020-0 No 40mg Common (Triamcinol (Triamcinol 1-14 S pirit one) one) 00:00: - [facility] 00 [facility] Kenalog Kenalog 2020-0 No 40mg Common (Triamcinol (Triamcinol 1-14 S pirit one) one) 00:00: - [facility] 00 [facility] Kenalog Kenalog 2020-0 No 40mg Common (Triamcinol (Triamcinol 1-14 S pirit one) one) 00:00: - [facility] 00 [facility] Kenalog Kenalog No 40mg Common (Triamcinol (Triamcinol 1-14 S pirit one) one) 00:00: - [facility] ProAir ProAir 2018-08 Yes Chuy 2 puffs Comm on RespiClick RespiClick 0-25 [facility] Sp reji 00:00: - [facility] ProAir ProAir 2018-08 No 2{puffs ProAir RespiClick RespiClick 0-25 } RespiClick 108 (90 108 (90 00:00: 108 (90 Base) Base) 00 Base) MCG/ACT MCG/ACT MCG/ACT ProAir ProAir 2018-08 No 2{puffs ProAir RespiClick RespiClick 0-25 } RespiClick 108 ( 108 ( 00:00: 108 (90 Base) Base) 00 Base) MCG/ACT MCG/ACT MCG/ACT ProAir ProAir 2018-08 No 2{puffs ProAir RespiClick RespiClick 0-25 } RespiClick 108 ( 108 ( 00:00: 108 (90 Base) Base) 00 Base) MCG/ACT MCG/ACT MCG/ACT ProAir ProAir 2018-08 No 2{puffs ProAir RespiClick RespiClick 0-25 } RespiClick 108 (90 108 ( 00:00: 108 (90 Base) Base) 00 Base) MCG/ACT MCG/ACT MCG/ACT ProAir ProAir 2018-08 No 2{puffs ProAir RespiClick RespiClick 0-25 } RespiClick 108 ( 108 ( 00:00: 108 (90 Base) Base) 00 Base) MCG/ACT MCG/ACT MCG/ACT ProAir ProAir 2018-08 No 2{puffs ProAir RespiClick RespiClick 0-25 } RespiClick 108 (90 108 (90 00:00: 108 (90 Base) Base) 00 Base) MCG/ACT MCG/ACT MCG/ACT ProAir ProAir 2018-08 No 2{puffs ProAir RespiClick RespiClick 0-25 } RespiClick 108 (90 108 (90 00:00: 108 (90 Base) Base) 00 Base) MCG/ACT MCG/ACT MCG/ACT ProAir ProAir 2018-08 No 2{puffs ProAir RespiClick RespiClick 0-25 } RespiClick 108 (90 108 (90 00:00: 108 (90 Base) Base) 00 Base) MCG/ACT MCG/ACT MCG/ACT ProAir ProAir 2018-08 No 2{puffs ProAir RespiClick RespiClick 0-25 } RespiClick 108 (90 108 ( 00:00: 108 (90 Base) Base) 00 Base) MCG/ACT MCG/ACT MCG/ACT ProAir ProAir 2018-08 No 2{puffs ProAir RespiClick RespiClick 0-25 } RespiClick 108 ( 108 (90 00:00: 108 (90 Base) Base) 00 Base) MCG/ACT MCG/ACT MCG/ACT ProAir ProAir 2018-08 No 2{puffs ProAir RespiClick RespiClick 0-25 } RespiClick 108 ( 108 ( 00:00: 108 (90 Base) Base) 00 Base) MCG/ACT MCG/ACT MCG/ACT ProAir ProAir 2018-08 No 2{puffs ProAir RespiClick RespiClick 0-25 } RespiClick 108 ( 108 ( 00:00: 108 (90 Base) Base) 00 Base) MCG/ACT MCG/ACT MCG/ACT ProAir ProAir 2018-08 No 2{puffs ProAir RespiClick RespiClick 0-25 } RespiClick 108 ( 108 ( 00:00: 108 (90 Base) Base) 00 Base) MCG/ACT MCG/ACT MCG/ACT ProAir ProAir 2018-08 No 2{puffs ProAir RespiClick RespiClick 0-25 } RespiClick 108 ( 108 ( 00:00: 108 (90 Base) Base) 00 Base) MCG/ACT MCG/ACT MCG/ACT ProAir ProAir 2018-08 No 2{puffs ProAir RespiClick RespiClick 0-25 } RespiClick 108 ( 108 ( 00:00: 108 (90 Base) Base) 00 Base) MCG/ACT MCG/ACT MCG/ACT ProAir ProAir 2018-08 No 2{puffs ProAir RespiClick RespiClick 0-25 } RespiClick 108 (90 108 ( 00:00: 108 (90 Base) Base) 00 Base) MCG/ACT MCG/ACT MCG/ACT ProAir ProAir 2018-08 No 2{puffs ProAir RespiClick RespiClick 0-25 } RespiClick 108 (90 108 (90 00:00: 108 (90 Base) Base) 00 Base) MCG/ACT MCG/ACT MCG/ACT ProAir ProAir 2018-08 No 2{puffs ProAir RespiClick RespiClick 0-25 } RespiClick 108 (90 108 (90 00:00: 108 (90 Base) Base) 00 Base) MCG/ACT MCG/ACT MCG/ACT ProAir ProAir 2018-08 No 2{puffs ProAir RespiClick RespiClick 0-25 } RespiClick 108 ( 108 (90 00:00: 108 (90 Base) Base) 00 Base) MCG/ACT MCG/ACT MCG/ACT ProAir ProAir 2018-08 No 2{puffs ProAir RespiClick RespiClick 0-25 } RespiClick 108 ( 108 ( 00:00: 108 (90 Base) Base) 00 Base) MCG/ACT MCG/ACT MCG/ACT ProAir ProAir 2018-08 No 2{puffs ProAir RespiClick RespiClick 0-25 } RespiClick 108 ( 108 ( 00:00: 108 (90 Base) Base) 00 Base) MCG/ACT MCG/ACT MCG/ACT ProAir ProAir 2018-08 No 2{puffs ProAir RespiClick RespiClick 0-25 } RespiClick 108 ( 108 ( 00:00: 108 (90 Base) Base) 00 Base) MCG/ACT MCG/ACT MCG/ACT ProAir ProAir 2018-08 No 2{puffs ProAir RespiClick RespiClick 0-25 } RespiClick 108 ( 108 ( 00:00: 108 (90 Base) Base) 00 Base) MCG/ACT MCG/ACT MCG/ACT ProAir ProAir 2018-08 No 2{puffs ProAir RespiClick RespiClick 0-25 } RespiClick 108 ( 108 ( 00:00: 108 (90 Base) Base) 00 Base) MCG/ACT MCG/ACT MCG/ACT ProAir ProAir 2018-08 No 2{puffs ProAir RespiClick RespiClick 0-25 } RespiClick 108 ( 108 ( 00:00: 108 (90 Base) Base) 00 Base) MCG/ACT MCG/ACT MCG/ACT ProAir ProAir 2018-08 No 2{puffs ProAir RespiClick RespiClick 0-25 } RespiClick 108 (90 108 (90 00:00: 108 (90 Base) Base) 00 Base) MCG/ACT MCG/ACT MCG/ACT ProAir ProAir 2018-08 No 2{puffs ProAir RespiClick RespiClick 0-25 } RespiClick 108 (90 108 (90 00:00: 108 (90 Base) Base) 00 Base) MCG/ACT MCG/ACT MCG/ACT ProAir ProAir 2018-08 No 2{puffs ProAir RespiClick RespiClick 0-25 } RespiClick 108 (90 108 (90 00:00: 108 (90 Base) Base) 00 Base) MCG/ACT MCG/ACT MCG/ACT ProAir ProAir 2018-08 No 2{puffs ProAir RespiClick RespiClick 0-25 } RespiClick 108 (90 108 (90 00:00: 108 (90 Base) Base) 00 Base) MCG/ACT MCG/ACT MCG/ACT ProAir ProAir 2018-08 No 2{puffs ProAir RespiClick RespiClick 0-25 } RespiClick 108 (90 108 (90 00:00: 108 (90 Base) Base) 00 Base) MCG/ACT MCG/ACT MCG/ACT ProAir ProAir 2018-08 No 2{puffs RespiClick RespiClick 0-25 } 108 (90 108 (90 00:00: Base) Base) 00 MCG/ACT MCG/ACT Losartan Losartan 2018- Yes Chuy 1 tablet Common Potassium Potassium 8-23 [facility] 00:00: - [facility] Valium Valium Yes Chuy 1 tablet Com mon 02-14 [facility] as needed [facility] 00:00: - [facility] Crestor Crestor Yes Chuy 1 tablet C ommon 9- [facility] 00:00: - [facility] Flonase Flonase Yes Chuy 2 spray in Common 8-24 Thomas each Spirit 00:00: nostril - [facility] Metronidazo Metronidazo Yes Chuy 1 tablet Common le le [facility] Zofran Zofran Yes Chuy 1 tablet Commo n [facility] as needed [facility] Meclizine Meclizine Yes Chuy as Com mon HCl HCl Thomas directed [facility] Duloxetine Duloxetine Yes Chuy 2 capsule Common HCl HCl Thomas [facility] Cetirizine Cetirizine Yes Chuy 1 tablet Common HCl HCl Thomas [facility] Montelukast Montelukast Yes Chuy 1 tablet Common Sodium Sodium [facility] in the [facility] evening [facility] Metoprolol Metoprolol Yes Chuy 1 tablet Common Tart[facility] T[facility]rate [facility] Flonase 50 Flonase 50 No 2{spray QD Flonase 50 MCG/ACT MCG/ACT _in_eac MCG/ACT h_nostr il} Crestor 20 Crestor 20 No 1{table QD Crestor 20 MG MG t} MG Metoprolol Metoprolol No Metoprolol Tartrate Tartrate Tartrate 100 MG 100 MG 100 MG DULoxetine DULoxetine No 2{capsu QD DULoxetine HCl 60 MG HCl 60 MG le} HCl 60 MG Losartan Losartan No 1{table QD Losartan Potassium Potassium t} Potassium 50 MG 50 MG 50 MG Losartan Losartan No Losartan Potassium Potassium Potassium 50 MG 50 MG 50 MG Neomycin-Po Neomycin-Po No 4{drops TID Neomycin-P lymyxin-HC lymyxin-HC _into_a olymyxin-H 3.501214-4 3.5-92521-8 ffected C _ear} 3.5-33764- 1 Cetirizine Cetirizine No 1{table QD Cetirizine HCl 10 MG HCl 10 MG t} HCl 10 MG Meclizine Meclizine No QD Meclizine HCl 25 MG HCl 25 MG HCl 25 MG Zofran 8 MG Zofran 8 MG No 1{table QD Zofran 8 t_as_ne MG eded} Montelukast Montelukast No 1{table QD Montelukas Sodium 10 Sodium 10 t_in_th t Sodium MG MG e_eveni 10 MG ng} metroNIDAZO metroNIDAZO No 1{table TID metroNIDAZ LE 500 MG LE 500 MG t} OLE 500 MG Valium 2 MG Valium 2 MG No 1{table QD Valium 2 t_as_ne MG eded} Valium 2 MG Valium 2 MG No 1{table QD Valium 2 t_as_ne MG eded} Zofran 8 MG Zofran 8 MG No 1{table QD Zofran 8 t_as_ne MG eded} Neomycin-Po Neomycin-Po No 4{drops TID Neomycin-P lymyxin-HC lymyxin-HC _into_a olymyxin-H 3.581869-7 3.505690-0 ffected C _ear} 3.5- 1 Meclizine Meclizine No QD Meclizine HCl 25 MG HCl 25 MG HCl 25 MG Metoprolol Metoprolol No Metoprolol Tartrate Tartrate Tartrate 100 MG 100 MG 100 MG Cipro 500 Cipro 500 No 1{table BID Cipro 500 MG MG t} MG Flonase 50 Flonase 50 No 2{spray QD Flonase 50 MCG/ACT MCG/ACT _in_eac MCG/ACT h_nostr il} Cetirizine Cetirizine No 1{table QD Cetirizine HCl 10 MG HCl 10 MG t} HCl 10 MG metroNIDAZO metroNIDAZO No 1{table TID metroNIDAZ LE 500 MG LE 500 MG t} OLE 500 MG DULoxetine DULoxetine No 2{capsu QD DULoxetine HCl 60 MG HCl 60 MG le} HCl 60 MG Losartan Losartan No Losartan Potassium Potassium Potassium 50 MG 50 MG 50 MG Crestor 20 Crestor 20 No 1{table QD Crestor 20 MG MG t} MG Montelukast Montelukast No 1{table QD Montelukas Sodium 10 Sodium 10 t_in_th t Sodium MG MG e_eveni 10 MG ng} metroNIDAZO metroNIDAZO No 1{table BID metroNIDAZ LE 500 MG LE 500 MG t} OLE 500 MG Losartan Losartan No 1{table QD Losartan Potassium Potassium t} Potassium 50 MG 50 MG 50 MG Valium 2 MG Valium 2 MG No 1{table QD Valium 2 t_as_ne MG eded} Zofran 8 MG Zofran 8 MG No 1{table QD Zofran 8 t_as_ne MG eded} Neomycin-Po Neomycin-Po No 4{drops TID Neomycin-P lymyxin-HC lymyxin-HC _into_a olymyxin-H 3.568014-4 3.579252-0 ffected C _ear} 3.5- 1 Meclizine Meclizine No QD Meclizine HCl 25 MG HCl 25 MG HCl 25 MG Metoprolol Metoprolol No Metoprolol Tartrate Tartrate Tartrate 100 MG 100 MG 100 MG Cipro 500 Cipro 500 No 1{table BID Cipro 500 MG MG t} MG Flonase 50 Flonase 50 No 2{spray QD Flonase 50 MCG/ACT MCG/ACT _in_eac MCG/ACT h_nostr il} Cetirizine Cetirizine No 1{table QD Cetirizine HCl 10 MG HCl 10 MG t} HCl 10 MG metroNIDAZO metroNIDAZO No 1{table TID metroNIDAZ LE 500 MG LE 500 MG t} OLE 500 MG DULoxetine DULoxetine No 2{capsu QD DULoxetine HCl 60 MG HCl 60 MG le} HCl 60 MG Losartan Losartan No Losartan Potassium Potassium Potassium 50 MG 50 MG 50 MG Crestor 20 Crestor 20 No 1{table QD Crestor 20 MG MG t} MG Montelukast Montelukast No 1{table QD Montelukas Sodium 10 Sodium 10 t_in_th t Sodium MG MG e_eveni 10 MG ng} metroNIDAZO metroNIDAZO No 1{table BID metroNIDAZ LE 500 MG LE 500 MG t} OLE 500 MG Losartan Losartan No 1{table QD Losartan Potassium Potassium t} Potassium 50 MG 50 MG 50 MG Valium 2 MG Valium 2 MG No 1{table QD Valium 2 t_as_ne MG eded} predniSONE predniSONE No QD predniSONE 20 MG 20 MG 20 MG Azithromyci Azithromyci No QD Azithromyc n 250 MG n 250 MG in 250 MG Montelukast Montelukast No 1{table QD Montelukas Sodium 10 Sodium 10 t_in_th t Sodium MG MG e_eveni 10 MG ng} Flonase 50 Flonase 50 No 2{spray QD Flonase 50 MCG/ACT MCG/ACT _in_eac MCG/ACT h_nostr il} Meclizine Meclizine No QD Meclizine HCl 25 MG HCl 25 MG HCl 25 MG DULoxetine DULoxetine No 2{capsu QD DULoxetine HCl 60 MG HCl 60 MG le} HCl 60 MG Losartan Losartan No 1{table QD Losartan Potassium Potassium t} Potassium 50 MG 50 MG 50 MG Losartan Losartan No Losartan Potassium Potassium Potassium 50 MG 50 MG 50 MG metroNIDAZO metroNIDAZO No 1{table BID metroNIDAZ LE 500 MG LE 500 MG t} OLE 500 MG Zofran 8 MG Zofran 8 MG No 1{table QD Zofran 8 t_as_ne MG eded} Cipro 500 Cipro 500 No 1{table BID Cipro 500 MG MG t} MG Neomycin-Po Neomycin-Po No 4{drops TID Neomycin-P lymyxin-HC lymyxin-HC _into_a olymyxin-H 3.582266-9 3.556371-9 ffected C _ear} 3.- Metoprolol Metoprolol No Metoprolol Tartrate Tartrate Tartrate 100 MG 100 MG 100 MG Crestor 20 Crestor 20 No 1{table QD Crestor 20 MG MG t} MG metroNIDAZO metroNIDAZO No 1{table TID metroNIDAZ LE 500 MG LE 500 MG t} OLE 500 MG Cetirizine Cetirizine No 1{table QD Cetirizine HCl 10 MG HCl 10 MG t} HCl 10 MG Valium 2 MG Valium 2 MG No 1{table QD Valium 2 t_as_ne MG eded} predniSONE predniSONE No QD predniSONE 20 MG 20 MG 20 MG Azithromyci Azithromyci No QD Azithromyc n 250 MG n 250 MG in 250 MG Montelukast Montelukast No 1{table QD Montelukas Sodium 10 Sodium 10 t_in_th t Sodium MG MG e_eveni 10 MG ng} Flonase 50 Flonase 50 No 2{spray QD Flonase 50 MCG/ACT MCG/ACT _in_eac MCG/ACT h_nostr il} Meclizine Meclizine No QD Meclizine HCl 25 MG HCl 25 MG HCl 25 MG DULoxetine DULoxetine No 2{capsu QD DULoxetine HCl 60 MG HCl 60 MG le} HCl 60 MG Losartan Losartan No 1{table QD Losartan Potassium Potassium t} Potassium 50 MG 50 MG 50 MG Losartan Losartan No Losartan Potassium Potassium Potassium 50 MG 50 MG 50 MG metroNIDAZO metroNIDAZO No 1{table BID metroNIDAZ LE 500 MG LE 500 MG t} OLE 500 MG Zofran 8 MG Zofran 8 MG No 1{table QD Zofran 8 t_as_ne MG eded} Cipro 500 Cipro 500 No 1{table BID Cipro 500 MG MG t} MG Neomycin-Po Neomycin-Po No 4{drops TID Neomycin-P lymyxin-HC lymyxin-HC _into_a olymyxin-H 3.574526-7 3.554248-0 ffected C _ear} 3.- 1 Metoprolol Metoprolol No Metoprolol Tartrate Tartrate Tartrate 100 MG 100 MG 100 MG Crestor 20 Crestor 20 No 1{table QD Crestor 20 MG MG t} MG metroNIDAZO metroNIDAZO No 1{table TID metroNIDAZ LE 500 MG LE 500 MG t} OLE 500 MG Cetirizine Cetirizine No 1{table QD Cetirizine HCl 10 MG HCl 10 MG t} HCl 10 MG Valium 2 MG Valium 2 MG No 1{table QD Valium 2 t_as_ne MG eded} predniSONE predniSONE No QD predniSONE 20 MG 20 MG 20 MG Azithromyci Azithromyci No QD Azithromyc n 250 MG n 250 MG in 250 MG Montelukast Montelukast No 1{table QD Montelukas Sodium 10 Sodium 10 t_in_th t Sodium MG MG e_eveni 10 MG ng} Flonase 50 Flonase 50 No 2{spray QD Flonase 50 MCG/ACT MCG/ACT _in_eac MCG/ACT h_nostr il} Meclizine Meclizine No QD Meclizine HCl 25 MG HCl 25 MG HCl 25 MG DULoxetine DULoxetine No 2{capsu QD DULoxetine HCl 60 MG HCl 60 MG le} HCl 60 MG Losartan Losartan No 1{table QD Losartan Potassium Potassium t} Potassium 50 MG 50 MG 50 MG Losartan Losartan No Losartan Potassium Potassium Potassium 50 MG 50 MG 50 MG metroNIDAZO metroNIDAZO No 1{table BID metroNIDAZ LE 500 MG LE 500 MG t} OLE 500 MG Zofran 8 MG Zofran 8 MG No 1{table QD Zofran 8 t_as_ne MG eded} Cipro 500 Cipro 500 No 1{table BID Cipro 500 MG MG t} MG Neomycin-Po Neomycin-Po No 4{drops TID Neomycin-P lymyxin-HC lymyxin-HC _into_a olymyxin-H 3.5-64073-8 3.587539-4 ffected C _ear} 3.5- 1 Metoprolol Metoprolol No Metoprolol Tartrate Tartrate Tartrate 100 MG 100 MG 100 MG Rosuvastati Rosuvastati No Rosuvastat n Calcium n Calcium in Calcium 20 MG 20 MG 20 MG metroNIDAZO metroNIDAZO No 1{table TID metroNIDAZ LE 500 MG LE 500 MG t} OLE 500 MG Cetirizine Cetirizine No 1{table QD Cetirizine HCl 10 MG HCl 10 MG t} HCl 10 MG Cetirizine Cetirizine No 1{table QD Cetirizine HCl 10 MG HCl 10 MG t} HCl 10 MG Flonase 50 Flonase 50 No 2{spray QD Flonase 50 MCG/ACT MCG/ACT _in_eac MCG/ACT h_nostr il} Losartan Losartan No 1{table QD Losartan Potassium Potassium t} Potassium 50 MG 50 MG 50 MG Zofran 8 MG Zofran 8 MG No 1{table QD Zofran 8 t_as_ne MG eded} Neomycin-Po Neomycin-Po No 4{drops TID Neomycin-P lymyxin-HC lymyxin-HC _into_a olymyxin-H 3.515482-1 3.546953-8 ffected C _ear} 3.5- 1 metroNIDAZO metroNIDAZO No 1{table TID metroNIDAZ LE 500 MG LE 500 MG t} OLE 500 MG DULoxetine DULoxetine No 2{capsu QD DULoxetine HCl 60 MG HCl 60 MG le} HCl 60 MG predniSONE predniSONE No QD predniSONE 20 MG 20 MG 20 MG Montelukast Montelukast No 1{table QD Montelukas Sodium 10 Sodium 10 t_in_th t Sodium MG MG e_eveni 10 MG ng} Losartan Losartan No Losartan Potassium Potassium Potassium 50 MG 50 MG 50 MG Azithromyci Azithromyci No QD Azithromyc n 250 MG n 250 MG in 250 MG metroNIDAZO metroNIDAZO No 1{table BID metroNIDAZ LE 500 MG LE 500 MG t} OLE 500 MG Valium 2 MG Valium 2 MG No 1{table QD Valium 2 t_as_ne MG eded} Cipro 500 Cipro 500 No 1{table BID Cipro 500 MG MG t} MG Rosuvastati Rosuvastati No Rosuvastat n Calcium n Calcium in Calcium 20 MG 20 MG 20 MG Meclizine Meclizine No QD Meclizine HCl 25 MG HCl 25 MG HCl 25 MG Metoprolol Metoprolol No Metoprolol Tartrate Tartrate Tartrate 100 MG 100 MG 100 MG Cetirizine Cetirizine No 1{table QD Cetirizine HCl 10 MG HCl 10 MG t} HCl 10 MG Flonase 50 Flonase 50 No 2{spray QD Flonase 50 MCG/ACT MCG/ACT _in_eac MCG/ACT h_nostr il} Losartan Losartan No 1{table QD Losartan Potassium Potassium t} Potassium 50 MG 50 MG 50 MG Zofran 8 MG Zofran 8 MG No 1{table QD Zofran 8 t_as_ne MG eded} Neomycin-Po Neomycin-Po No 4{drops TID Neomycin-P lymyxin-HC lymyxin-HC _into_a olymyxin-H 3.550371-8 3.548422-0 ffected C _ear} 3.543134- 1 metroNIDAZO metroNIDAZO No 1{table TID metroNIDAZ LE 500 MG LE 500 MG t} OLE 500 MG DULoxetine DULoxetine No 2{capsu QD DULoxetine HCl 60 MG HCl 60 MG le} HCl 60 MG predniSONE predniSONE No QD predniSONE 20 MG 20 MG 20 MG Montelukast Montelukast No 1{table QD Montelukas Sodium 10 Sodium 10 t_in_th t Sodium MG MG e_eveni 10 MG ng} Losartan Losartan No Losartan Potassium Potassium Potassium 50 MG 50 MG 50 MG Azithromyci Azithromyci No QD Azithromyc n 250 MG n 250 MG in 250 MG metroNIDAZO metroNIDAZO No 1{table BID metroNIDAZ LE 500 MG LE 500 MG t} OLE 500 MG Valium 2 MG Valium 2 MG No 1{table QD Valium 2 t_as_ne MG eded} Cipro 500 Cipro 500 No 1{table BID Cipro 500 MG MG t} MG Rosuvastati Rosuvastati No Rosuvastat n Calcium n Calcium in Calcium 20 MG 20 MG 20 MG Meclizine Meclizine No QD Meclizine HCl 25 MG HCl 25 MG HCl 25 MG Metoprolol Metoprolol No Metoprolol Tartrate Tartrate Tartrate 100 MG 100 MG 100 MG Cetirizine Cetirizine No 1{table QD Cetirizine HCl 10 MG HCl 10 MG t} HCl 10 MG Flonase 50 Flonase 50 No 2{spray QD Flonase 50 MCG/ACT MCG/ACT _in_eac MCG/ACT h_nostr il} Losartan Losartan No 1{table QD Losartan Potassium Potassium t} Potassium 50 MG 50 MG 50 MG Zofran 8 MG Zofran 8 MG No 1{table QD Zofran 8 t_as_ne MG eded} Neomycin-Po Neomycin-Po No 4{drops TID Neomycin-P lymyxin-HC lymyxin-HC _into_a olymyxin-H 3.539921-5 3.562108-1 ffected C _ear} 3.- metroNIDAZO metroNIDAZO No 1{table TID metroNIDAZ LE 500 MG LE 500 MG t} OLE 500 MG DULoxetine DULoxetine No 2{capsu QD DULoxetine HCl 60 MG HCl 60 MG le} HCl 60 MG predniSONE predniSONE No QD predniSONE 20 MG 20 MG 20 MG Montelukast Montelukast No 1{table QD Montelukas Sodium 10 Sodium 10 t_in_th t Sodium MG MG e_eveni 10 MG ng} Losartan Losartan No Losartan Potassium Potassium Potassium 50 MG 50 MG 50 MG Azithromyci Azithromyci No QD Azithromyc n 250 MG n 250 MG in 250 MG metroNIDAZO metroNIDAZO No 1{table BID metroNIDAZ LE 500 MG LE 500 MG t} OLE 500 MG Valium 2 MG Valium 2 MG No 1{table QD Valium 2 t_as_ne MG eded} Cipro 500 Cipro 500 No 1{table BID Cipro 500 MG MG t} MG Rosuvastati Rosuvastati No Rosuvastat n Calcium n Calcium in Calcium 20 MG 20 MG 20 MG Meclizine Meclizine No QD Meclizine HCl 25 MG HCl 25 MG HCl 25 MG Metoprolol Metoprolol No Metoprolol Tartrate Tartrate Tartrate 100 MG 100 MG 100 MG Metoprolol Metoprolol No Metoprolol Tartrate Tartrate Tartrate 100 MG 100 MG 100 MG Valium 2 MG Valium 2 MG No 1{table QD Valium 2 t_as_ne MG eded} metroNIDAZO metroNIDAZO No 1{table BID metroNIDAZ LE 500 MG LE 500 MG t} OLE 500 MG Neomycin-Po Neomycin-Po No 4{drops TID Neomycin-P lymyxin-HC lymyxin-HC _into_a olymyxin-H 3.-1 3. ffected C _ear} 3. Losartan Losartan No Losartan Potassium Potassium Potassium 50 MG 50 MG 50 MG DULoxetine DULoxetine No 1{capsu QD DULoxetine HCl 60 MG HCl 60 MG le} HCl 60 MG Rosuvastati Rosuvastati No Rosuvastat n Calcium n Calcium in Calcium 20 MG 20 MG 20 MG Crestor 20 Crestor 20 No 1{table QD Crestor 20 MG MG t} MG Azithromyci Azithromyci No QD Azithromyc n 250 MG n 250 MG in 250 MG metroNIDAZO metroNIDAZO No 1{table TID metroNIDAZ LE 500 MG LE 500 MG t} OLE 500 MG Cetirizine Cetirizine No 1{table QD Cetirizine HCl 10 MG HCl 10 MG t} HCl 10 MG Flonase 50 Flonase 50 No 2{spray QD Flonase 50 MCG/ACT MCG/ACT _in_eac MCG/ACT h_nostr il} Losartan Losartan No 1{table QD Losartan Potassium Potassium t} Potassium 50 MG 50 MG 50 MG predniSONE predniSONE No QD predniSONE 20 MG 20 MG 20 MG Zofran 8 MG Zofran 8 MG No 1{table QD Zofran 8 t_as_ne MG eded} Meclizine Meclizine No QD Meclizine HCl 25 MG HCl 25 MG HCl 25 MG Cipro 500 Cipro 500 No 1{table BID Cipro 500 MG MG t} MG Montelukast Montelukast No 1{table QD Montelukas Sodium 10 Sodium 10 t_in_th t Sodium MG MG e_eveni 10 MG ng} Metoprolol Metoprolol No 1{table BID Metoprolol Tartrate Tartrate t_with_ Tartrate 100 MG 100 MG food} 100 MG Metoprolol Metoprolol No Metoprolol Tartrate Tartrate Tartrate 100 MG 100 MG 100 MG Losartan Losartan No Losartan Potassium Potassium Potassium 50 MG 50 MG 50 MG metroNIDAZO metroNIDAZO No 1{table TID metroNIDAZ LE 500 MG LE 500 MG t} OLE 500 MG Montelukast Montelukast No 1{table QD Montelukas Sodium 10 Sodium 10 t_in_th t Sodium MG MG e_eveni 10 MG ng} Flonase 50 Flonase 50 No 2{spray QD Flonase 50 MCG/ACT MCG/ACT _in_eac MCG/ACT h_nostr il} Cipro 500 Cipro 500 No 1{table BID Cipro 500 MG MG t} MG Cetirizine Cetirizine No 1{table QD Cetirizine HCl 10 MG HCl 10 MG t} HCl 10 MG Valium 2 MG Valium 2 MG No 1{table QD Valium 2 t_as_ne MG eded} Losartan Losartan No 1{table QD Losartan Potassium Potassium t} Potassium 50 MG 50 MG 50 MG Azithromyci Azithromyci No QD Azithromyc n 250 MG n 250 MG in 250 MG Crestor 20 Crestor 20 No 1{table QD Crestor 20 MG MG t} MG metroNIDAZO metroNIDAZO No 1{table BID metroNIDAZ LE 500 MG LE 500 MG t} OLE 500 MG Neomycin-Po Neomycin-Po No 4{drops TID Neomycin-P lymyxin-HC lymyxin-HC _into_a olymyxin-H 3.5-77255-9 3.5-01764-6 ffected C _ear} 3.5-89847- 1 Metoprolol Metoprolol No 1{table BID Metoprolol Tartrate Tartrate t_with_ Tartrate 100 MG 100 MG food} 100 MG Meclizine Meclizine No QD Meclizine HCl 25 MG HCl 25 MG HCl 25 MG Zofran 8 MG Zofran 8 MG No 1{table QD Zofran 8 t_as_ne MG eded} DULoxetine DULoxetine No 1{capsu QD DULoxetine HCl 60 MG HCl 60 MG le} HCl 60 MG Rosuvastati Rosuvastati No Rosuvastat n Calcium n Calcium in Calcium 20 MG 20 MG 20 MG predniSONE predniSONE No QD predniSONE 20 MG 20 MG 20 MG Metoprolol Metoprolol No Metoprolol Tartrate Tartrate Tartrate 100 MG 100 MG 100 MG Losartan Losartan No Losartan Potassium Potassium Potassium 50 MG 50 MG 50 MG metroNIDAZO metroNIDAZO No 1{table TID metroNIDAZ LE 500 MG LE 500 MG t} OLE 500 MG Montelukast Montelukast No 1{table QD Montelukas Sodium 10 Sodium 10 t_in_th t Sodium MG MG e_eveni 10 MG ng} Flonase 50 Flonase 50 No 2{spray QD Flonase 50 MCG/ACT MCG/ACT _in_eac MCG/ACT h_nostr il} Cipro 500 Cipro 500 No 1{table BID Cipro 500 MG MG t} MG Cetirizine Cetirizine No 1{table QD Cetirizine HCl 10 MG HCl 10 MG t} HCl 10 MG Valium 2 MG Valium 2 MG No 1{table QD Valium 2 t_as_ne MG eded} Losartan Losartan No 1{table QD Losartan Potassium Potassium t} Potassium 50 MG 50 MG 50 MG Azithromyci Azithromyci No QD Azithromyc n 250 MG n 250 MG in 250 MG Crestor 20 Crestor 20 No 1{table QD Crestor 20 MG MG t} MG metroNIDAZO metroNIDAZO No 1{table BID metroNIDAZ LE 500 MG LE 500 MG t} OLE 500 MG Neomycin-Po Neomycin-Po No 4{drops TID Neomycin-P lymyxin-HC lymyxin-HC _into_a olymyxin-H 3.5-00450-8 3.5-98925-7 ffected C _ear} 3.5-02525- 1 Metoprolol Metoprolol No 1{table BID Metoprolol Tartrate Tartrate t_with_ Tartrate 100 MG 100 MG food} 100 MG Meclizine Meclizine No QD Meclizine HCl 25 MG HCl 25 MG HCl 25 MG Zofran 8 MG Zofran 8 MG No 1{table QD Zofran 8 t_as_ne MG eded} DULoxetine DULoxetine No 1{capsu QD DULoxetine HCl 60 MG HCl 60 MG le} HCl 60 MG Rosuvastati Rosuvastati No Rosuvastat n Calcium n Calcium in Calcium 20 MG 20 MG 20 MG predniSONE predniSONE No QD predniSONE 20 MG 20 MG 20 MG Meclizine Meclizine No QD Meclizine HCl 25 MG HCl 25 MG HCl 25 MG Cipro 500 Cipro 500 No 1{table BID Cipro 500 MG MG t} MG Cetirizine Cetirizine No 1{table QD Cetirizine HCl 10 MG HCl 10 MG t} HCl 10 MG metroNIDAZO metroNIDAZO No 1{table BID metroNIDAZ LE 500 MG LE 500 MG t} OLE 500 MG DULoxetine DULoxetine No 1{capsu QD DULoxetine HCl 60 MG HCl 60 MG le} HCl 60 MG Crestor 20 Crestor 20 No 1{table QD Crestor 20 MG MG t} MG metroNIDAZO metroNIDAZO No 1{table TID metroNIDAZ LE 500 MG LE 500 MG t} OLE 500 MG Montelukast Montelukast No 1{table QD Montelukas Sodium 10 Sodium 10 t_in_th t Sodium MG MG e_eveni 10 MG ng} predniSONE predniSONE No QD predniSONE 20 MG 20 MG 20 MG Valium 2 MG Valium 2 MG No 1{table QD Valium 2 t_as_ne MG eded} Neomycin-Po Neomycin-Po No 4{drops TID Neomycin-P lymyxin-HC lymyxin-HC _into_a olymyxin-H 3.514034-8 3.5-14547-2 ffected C _ear} 3.5-15500- 1 Zofran 8 MG Zofran 8 MG No 1{table QD Zofran 8 t_as_ne MG eded} Losartan Losartan No Losartan Potassium Potassium Potassium 50 MG 50 MG 50 MG Azithromyci Azithromyci No QD Azithromyc n 250 MG n 250 MG in 250 MG Flonase 50 Flonase 50 No 2{spray QD Flonase 50 MCG/ACT MCG/ACT _in_eac MCG/ACT h_nostr il} Metoprolol Metoprolol No Metoprolol Tartrate Tartrate Tartrate 100 MG 100 MG 100 MG Losartan Losartan No 1{table QD Losartan Potassium Potassium t} Potassium 50 MG 50 MG 50 MG Rosuvastati Rosuvastati No Rosuvastat n Calcium n Calcium in Calcium 20 MG 20 MG 20 MG Metoprolol Metoprolol No Metoprolol Tartrate Tartrate Tartrate 100 MG 100 MG 100 MG Cetirizine Cetirizine No 1{table QD Cetirizine HCl 10 MG HCl 10 MG t} HCl 10 MG Cipro 500 Cipro 500 No 1{table BID Cipro 500 MG MG t} MG Losartan Losartan No 1{table QD Losartan Potassium Potassium t} Potassium 50 MG 50 MG 50 MG metroNIDAZO metroNIDAZO No 1{table BID metroNIDAZ LE 500 MG LE 500 MG t} OLE 500 MG Crestor 20 Crestor 20 No 1{table QD Crestor 20 MG MG t} MG Montelukast Montelukast No 1{table QD Montelukas Sodium 10 Sodium 10 t_in_th t Sodium MG MG e_eveni 10 MG ng} Losartan Losartan No Losartan Potassium Potassium Potassium 50 MG 50 MG 50 MG predniSONE predniSONE No QD predniSONE 20 MG 20 MG 20 MG DULoxetine DULoxetine No 1{capsu QD DULoxetine HCl 60 MG HCl 60 MG le} HCl 60 MG Meclizine Meclizine No QD Meclizine HCl 25 MG HCl 25 MG HCl 25 MG Flonase 50 Flonase 50 No 2{spray QD Flonase 50 MCG/ACT MCG/ACT _in_eac MCG/ACT h_nostr il} Rosuvastati Rosuvastati No Rosuvastat n Calcium n Calcium in Calcium 20 MG 20 MG 20 MG Valium 2 MG Valium 2 MG No 1{table QD Valium 2 t_as_ne MG eded} Neomycin-Po Neomycin-Po No 4{drops TID Neomycin-P lymyxin-HC lymyxin-HC _into_a olymyxin-H 3.5-61168-1 3.5-00454-7 ffected C _ear} 3.5-29383- 1 Zofran 8 MG Zofran 8 MG No 1{table QD Zofran 8 t_as_ne MG eded} metroNIDAZO metroNIDAZO No 1{table TID metroNIDAZ LE 500 MG LE 500 MG t} OLE 500 MG Azithromyci Azithromyci No QD Azithromyc n 250 MG n 250 MG in 250 MG Metoprolol Metoprolol No Metoprolol Tartrate Tartrate Tartrate 100 MG 100 MG 100 MG Cetirizine Cetirizine No 1{table QD Cetirizine HCl 10 MG HCl 10 MG t} HCl 10 MG Cipro 500 Cipro 500 No 1{table BID Cipro 500 MG MG t} MG Losartan Losartan No 1{table QD Losartan Potassium Potassium t} Potassium 50 MG 50 MG 50 MG metroNIDAZO metroNIDAZO No 1{table BID metroNIDAZ LE 500 MG LE 500 MG t} OLE 500 MG Crestor 20 Crestor 20 No 1{table QD Crestor 20 MG MG t} MG Montelukast Montelukast No 1{table QD Montelukas Sodium 10 Sodium 10 t_in_th t Sodium MG MG e_eveni 10 MG ng} Losartan Losartan No Losartan Potassium Potassium Potassium 50 MG 50 MG 50 MG predniSONE predniSONE No QD predniSONE 20 MG 20 MG 20 MG DULoxetine DULoxetine No 1{capsu QD DULoxetine HCl 60 MG HCl 60 MG le} HCl 60 MG Meclizine Meclizine No QD Meclizine HCl 25 MG HCl 25 MG HCl 25 MG Flonase 50 Flonase 50 No 2{spray QD Flonase 50 MCG/ACT MCG/ACT _in_eac MCG/ACT h_nostr il} Rosuvastati Rosuvastati No Rosuvastat n Calcium n Calcium in Calcium 20 MG 20 MG 20 MG Valium 2 MG Valium 2 MG No 1{table QD Valium 2 t_as_ne MG eded} Neomycin-Po Neomycin-Po No 4{drops TID Neomycin-P lymyxin-HC lymyxin-HC _into_a olymyxin-H 3.5-10220-6 3.5-61137-6 ffected C _ear} 3.5-15874- 1 Zofran 8 MG Zofran 8 MG No 1{table QD Zofran 8 t_as_ne MG eded} metroNIDAZO metroNIDAZO No 1{table TID metroNIDAZ LE 500 MG LE 500 MG t} OLE 500 MG Azithromyci Azithromyci No QD Azithromyc n 250 MG n 250 MG in 250 MG metroNIDAZO metroNIDAZO No 1{table BID metroNIDAZ LE 500 MG LE 500 MG t} OLE 500 MG Metoprolol Metoprolol No Metoprolol Tartrate Tartrate Tartrate 100 MG 100 MG 100 MG Valium 2 MG Valium 2 MG No 1{table QD Valium 2 t_as_ne MG eded} Crestor 20 Crestor 20 No 1{table QD Crestor 20 MG MG t} MG Flonase 50 Flonase 50 No 2{spray QD Flonase 50 MCG/ACT MCG/ACT _in_eac MCG/ACT h_nostr il} Montelukast Montelukast No 1{table QD Montelukas Sodium 10 Sodium 10 t_in_th t Sodium MG MG e_eveni 10 MG ng} Losartan Losartan No Losartan Potassium Potassium Potassium 50 MG 50 MG 50 MG predniSONE predniSONE No QD predniSONE 20 MG 20 MG 20 MG DULoxetine DULoxetine No 1{capsu QD DULoxetine HCl 60 MG HCl 60 MG le} HCl 60 MG Azithromyci Azithromyci No QD Azithromyc n 250 MG n 250 MG in 250 MG Losartan Losartan No 1{table QD Losartan Potassium Potassium t} Potassium 50 MG 50 MG 50 MG Rosuvastati Rosuvastati No Rosuvastat n Calcium n Calcium in Calcium 20 MG 20 MG 20 MG Meclizine Meclizine No QD Meclizine HCl 25 MG HCl 25 MG HCl 25 MG Neomycin-Po Neomycin-Po No 4{drops TID Neomycin-P lymyxin-HC lymyxin-HC _into_a olymyxin-H 3.578014-0 3.588710-0 ffected C _ear} 3.5- 1 Cetirizine Cetirizine No 1{table QD Cetirizine HCl 10 MG HCl 10 MG t} HCl 10 MG Zofran 8 MG Zofran 8 MG No 1{table QD Zofran 8 t_as_ne MG eded} metroNIDAZO metroNIDAZO No 1{table TID metroNIDAZ LE 500 MG LE 500 MG t} OLE 500 MG Cipro 500 Cipro 500 No 1{table BID Cipro 500 MG MG t} MG Cetirizine Cetirizine No 1{table QD Cetirizine HCl 10 MG HCl 10 MG t} HCl 10 MG Losartan Losartan No Losartan Potassium Potassium Potassium 50 MG 50 MG 50 MG Zofran 8 MG Zofran 8 MG No 1{table QD Zofran 8 t_as_ne MG eded} Glimepiride Glimepiride No Glimepirid 2 MG 2 MG e 2 MG Azithromyci Azithromyci No QD Azithromyc n 250 MG n 250 MG in 250 MG Losartan Losartan No 1{table QD Losartan Potassium Potassium t} Potassium 50 MG 50 MG 50 MG metroNIDAZO metroNIDAZO No 1{table BID metroNIDAZ LE 500 MG LE 500 MG t} OLE 500 MG Flonase 50 Flonase 50 No 2{spray QD Flonase 50 MCG/ACT MCG/ACT _in_eac MCG/ACT h_nostr il} metroNIDAZO metroNIDAZO No 1{table TID metroNIDAZ LE 500 MG LE 500 MG t} OLE 500 MG Rosuvastati Rosuvastati No Rosuvastat n Calcium n Calcium in Calcium 20 MG 20 MG 20 MG Montelukast Montelukast No 1{table QD Montelukas Sodium 10 Sodium 10 t_in_th t Sodium MG MG e_eveni 10 MG ng} predniSONE predniSONE No QD predniSONE 20 MG 20 MG 20 MG Metoprolol Metoprolol No Metoprolol Tartrate Tartrate Tartrate 100 MG 100 MG 100 MG DULoxetine DULoxetine No 1{capsu QD DULoxetine HCl 60 MG HCl 60 MG le} HCl 60 MG Valium 2 MG Valium 2 MG No 1{table QD Valium 2 t_as_ne MG eded} Meclizine Meclizine No QD Meclizine HCl 25 MG HCl 25 MG HCl 25 MG Neomycin-Po Neomycin-Po No 4{drops TID Neomycin-P lymyxin-HC lymyxin-HC _into_a olymyxin-H 3.519657-1 3.525184-0 ffected C _ear} 3.585185- 1 Cipro 500 Cipro 500 No 1{table BID Cipro 500 MG MG t} MG Crestor 20 Crestor 20 No 1{table QD Crestor 20 MG MG t} MG Cetirizine Cetirizine No 1{table QD Cetirizine HCl 10 MG HCl 10 MG t} HCl 10 MG Losartan Losartan No Losartan Potassium Potassium Potassium 50 MG 50 MG 50 MG Zofran 8 MG Zofran 8 MG No 1{table QD Zofran 8 t_as_ne MG eded} Glimepiride Glimepiride No Glimepirid 2 MG 2 MG e 2 MG Azithromyci Azithromyci No QD Azithromyc n 250 MG n 250 MG in 250 MG Losartan Losartan No 1{table QD Losartan Potassium Potassium t} Potassium 50 MG 50 MG 50 MG metroNIDAZO metroNIDAZO No 1{table BID metroNIDAZ LE 500 MG LE 500 MG t} OLE 500 MG Flonase 50 Flonase 50 No 2{spray QD Flonase 50 MCG/ACT MCG/ACT _in_eac MCG/ACT h_nostr il} metroNIDAZO metroNIDAZO No 1{table TID metroNIDAZ LE 500 MG LE 500 MG t} OLE 500 MG Rosuvastati Rosuvastati No Rosuvastat n Calcium n Calcium in Calcium 20 MG 20 MG 20 MG Montelukast Montelukast No 1{table QD Montelukas Sodium 10 Sodium 10 t_in_th t Sodium MG MG e_eveni 10 MG ng} predniSONE predniSONE No QD predniSONE 20 MG 20 MG 20 MG Metoprolol Metoprolol No Metoprolol Tartrate Tartrate Tartrate 100 MG 100 MG 100 MG DULoxetine DULoxetine No 1{capsu QD DULoxetine HCl 60 MG HCl 60 MG le} HCl 60 MG Valium 2 MG Valium 2 MG No 1{table QD Valium 2 t_as_ne MG eded} Meclizine Meclizine No QD Meclizine HCl 25 MG HCl 25 MG HCl 25 MG Neomycin-Po Neomycin-Po No 4{drops TID Neomycin-P lymyxin-HC lymyxin-HC _into_a olymyxin-H 3.515613-1 3.578022-1 ffected C _ear} 3.- 1 Cipro 500 Cipro 500 No 1{table BID Cipro 500 MG MG t} MG Crestor 20 Crestor 20 No 1{table QD Crestor 20 MG MG t} MG Zofran 8 MG Zofran 8 MG No 1{table QD Zofran 8 t_as_ne MG eded} Metoprolol Metoprolol No Metoprolol Tartrate Tartrate Tartrate 100 MG 100 MG 100 MG Losartan Losartan No 1{table QD Losartan Potassium Potassium t} Potassium 50 MG 50 MG 50 MG Cetirizine Cetirizine No 1{table QD Cetirizine HCl 10 MG HCl 10 MG t} HCl 10 MG Valium 2 MG Valium 2 MG No 1{table QD Valium 2 t_as_ne MG eded} Neomycin-Po Neomycin-Po No 4{drops TID Neomycin-P lymyxin-HC lymyxin-HC _into_a olymyxin-H 3.583080-0 3.5-32286-5 ffected C _ear} 3.586604- 1 Azithromyci Azithromyci No QD Azithromyc n 250 MG n 250 MG in 250 MG Rosuvastati Rosuvastati No Rosuvastat n Calcium n Calcium in Calcium 20 MG 20 MG 20 MG metroNIDAZO metroNIDAZO No 1{table BID metroNIDAZ LE 500 MG LE 500 MG t} OLE 500 MG DULoxetine DULoxetine No 1{capsu QD DULoxetine HCl 60 MG HCl 60 MG le} HCl 60 MG Glimepiride Glimepiride No Glimepirid 2 MG 2 MG e 2 MG Flonase 50 Flonase 50 No 2{spray QD Flonase 50 MCG/ACT MCG/ACT _in_eac MCG/ACT h_nostr il} predniSONE predniSONE No QD predniSONE 20 MG 20 MG 20 MG Losartan Losartan No Losartan Potassium Potassium Potassium 50 MG 50 MG 50 MG Meclizine Meclizine No QD Meclizine HCl 25 MG HCl 25 MG HCl 25 MG metroNIDAZO metroNIDAZO No 1{table TID metroNIDAZ LE 500 MG LE 500 MG t} OLE 500 MG Montelukast Montelukast No 1{table QD Montelukas Sodium 10 Sodium 10 t_in_th t Sodium MG MG e_eveni 10 MG ng} Cipro 500 Cipro 500 No 1{table BID Cipro 500 MG MG t} MG Zofran 8 MG Zofran 8 MG No 1{table QD Zofran 8 t_as_ne MG eded} Metoprolol Metoprolol No Metoprolol Tartrate Tartrate Tartrate 100 MG 100 MG 100 MG Losartan Losartan No 1{table QD Losartan Potassium Potassium t} Potassium 50 MG 50 MG 50 MG Cetirizine Cetirizine No 1{table QD Cetirizine HCl 10 MG HCl 10 MG t} HCl 10 MG Valium 2 MG Valium 2 MG No 1{table QD Valium 2 t_as_ne MG eded} Neomycin-Po Neomycin-Po No 4{drops TID Neomycin-P lymyxin-HC lymyxin-HC _into_a olymyxin-H 3.5-64582-2 3.5-32882-8 ffected C _ear} 3.5-95393- 1 Azithromyci Azithromyci No QD Azithromyc n 250 MG n 250 MG in 250 MG Rosuvastati Rosuvastati No Rosuvastat n Calcium n Calcium in Calcium 20 MG 20 MG 20 MG metroNIDAZO metroNIDAZO No 1{table BID metroNIDAZ LE 500 MG LE 500 MG t} OLE 500 MG DULoxetine DULoxetine No 1{capsu QD DULoxetine HCl 60 MG HCl 60 MG le} HCl 60 MG Glimepiride Glimepiride No Glimepirid 2 MG 2 MG e 2 MG Flonase 50 Flonase 50 No 2{spray QD Flonase 50 MCG/ACT MCG/ACT _in_eac MCG/ACT h_nostr il} predniSONE predniSONE No QD predniSONE 20 MG 20 MG 20 MG Losartan Losartan No Losartan Potassium Potassium Potassium 50 MG 50 MG 50 MG Meclizine Meclizine No QD Meclizine HCl 25 MG HCl 25 MG HCl 25 MG metroNIDAZO metroNIDAZO No 1{table TID metroNIDAZ LE 500 MG LE 500 MG t} OLE 500 MG Montelukast Montelukast No 1{table QD Montelukas Sodium 10 Sodium 10 t_in_th t Sodium MG MG e_eveni 10 MG ng} Cipro 500 Cipro 500 No 1{table BID Cipro 500 MG MG t} MG Zofran 8 MG Zofran 8 MG No 1{table QD Zofran 8 t_as_ne MG eded} Metoprolol Metoprolol No Metoprolol Tartrate Tartrate Tartrate 100 MG 100 MG 100 MG Losartan Losartan No 1{table QD Losartan Potassium Potassium t} Potassium 50 MG 50 MG 50 MG Cetirizine Cetirizine No 1{table QD Cetirizine HCl 10 MG HCl 10 MG t} HCl 10 MG Valium 2 MG Valium 2 MG No 1{table QD Valium 2 t_as_ne MG eded} Neomycin-Po Neomycin-Po No 4{drops TID Neomycin-P lymyxin-HC lymyxin-HC _into_a olymyxin-H 3.5-97064-5 3.5-62799-3 ffected C _ear} 3.5-00325- 1 Azithromyci Azithromyci No QD Azithromyc n 250 MG n 250 MG in 250 MG Rosuvastati Rosuvastati No Rosuvastat n Calcium n Calcium in Calcium 20 MG 20 MG 20 MG metroNIDAZO metroNIDAZO No 1{table BID metroNIDAZ LE 500 MG LE 500 MG t} OLE 500 MG DULoxetine DULoxetine No 1{capsu QD DULoxetine HCl 60 MG HCl 60 MG le} HCl 60 MG Glimepiride Glimepiride No Glimepirid 2 MG 2 MG e 2 MG Flonase 50 Flonase 50 No 2{spray QD Flonase 50 MCG/ACT MCG/ACT _in_eac MCG/ACT h_nostr il} predniSONE predniSONE No QD predniSONE 20 MG 20 MG 20 MG Losartan Losartan No Losartan Potassium Potassium Potassium 50 MG 50 MG 50 MG Meclizine Meclizine No QD Meclizine HCl 25 MG HCl 25 MG HCl 25 MG metroNIDAZO metroNIDAZO No 1{table TID metroNIDAZ LE 500 MG LE 500 MG t} OLE 500 MG Montelukast Montelukast No 1{table QD Montelukas Sodium 10 Sodium 10 t_in_th t Sodium MG MG e_eveni 10 MG ng} Cipro 500 Cipro 500 No 1{table BID Cipro 500 MG MG t} MG Losartan Losartan No Losartan Potassium Potassium Potassium 50 MG 50 MG 50 MG metroNIDAZO metroNIDAZO No 1{table BID metroNIDAZ LE 500 MG LE 500 MG t} OLE 500 MG predniSONE predniSONE No QD predniSONE 20 MG 20 MG 20 MG Meclizine Meclizine No QD Meclizine HCl 25 MG HCl 25 MG HCl 25 MG Glimepiride Glimepiride No Glimepirid 2 MG 2 MG e 2 MG metroNIDAZO metroNIDAZO No 1{table TID metroNIDAZ LE 500 MG LE 500 MG t} OLE 500 MG Neomycin-Po Neomycin-Po No 4{drops TID Neomycin-P lymyxin-HC lymyxin-HC _into_a olymyxin-H 3.5-14580-8 3.5-86460-5 ffected C _ear} 3.5-15328- 1 Zofran 8 MG Zofran 8 MG No 1{table QD Zofran 8 t_as_ne MG eded} Cipro 500 Cipro 500 No 1{table BID Cipro 500 MG MG t} MG Cetirizine Cetirizine No 1{table QD Cetirizine HCl 10 MG HCl 10 MG t} HCl 10 MG Flonase 50 Flonase 50 No 2{spray QD Flonase 50 MCG/ACT MCG/ACT _in_eac MCG/ACT h_nostr il} Azithromyci Azithromyci No QD Azithromyc n 250 MG n 250 MG in 250 MG Losartan Losartan No 1{table QD Losartan Potassium Potassium t} Potassium 50 MG 50 MG 50 MG DULoxetine DULoxetine No 1{capsu QD DULoxetine HCl 60 MG HCl 60 MG le} HCl 60 MG Metoprolol Metoprolol No Metoprolol Tartrate Tartrate Tartrate 100 MG 100 MG 100 MG Valium 2 MG Valium 2 MG No 1{table QD Valium 2 t_as_ne MG eded} Montelukast Montelukast No 1{table QD Montelukas Sodium 10 Sodium 10 t_in_th t Sodium MG MG e_eveni 10 MG ng} Rosuvastati Rosuvastati No Rosuvastat n Calcium n Calcium in Calcium 20 MG 20 MG 20 MG Cipro 500 Cipro 500 No 1{table BID Cipro 500 MG MG t} MG Meclizine Meclizine No QD Meclizine HCl 25 MG HCl 25 MG HCl 25 MG metroNIDAZO metroNIDAZO No 1{table BID metroNIDAZ LE 500 MG LE 500 MG t} OLE 500 MG metroNIDAZO metroNIDAZO No 1{table TID metroNIDAZ LE 500 MG LE 500 MG t} OLE 500 MG predniSONE predniSONE No QD predniSONE 20 MG 20 MG 20 MG Azithromyci Azithromyci No QD Azithromyc n 250 MG n 250 MG in 250 MG Montelukast Montelukast No 1{table QD Montelukas Sodium 10 Sodium 10 t_in_th t Sodium MG MG e_eveni 10 MG ng} Flonase 50 Flonase 50 No 2{spray QD Flonase 50 MCG/ACT MCG/ACT _in_eac MCG/ACT h_nostr il} Rosuvastati Rosuvastati No Rosuvastat n Calcium n Calcium in Calcium 20 MG 20 MG 20 MG Losartan Losartan No 1{table QD Losartan Potassium Potassium t} Potassium 50 MG 50 MG 50 MG Zofran 8 MG Zofran 8 MG No 1{table QD Zofran 8 t_as_ne MG eded} Neomycin-Po Neomycin-Po No 4{drops TID Neomycin-P lymyxin-HC lymyxin-HC _into_a olymyxin-H 3.580459-6 3.586365-7 ffected C _ear} 3.5- 1 Losartan Losartan No Losartan Potassium Potassium Potassium 50 MG 50 MG 50 MG Flonase 50 Flonase 50 No 2{spray QD Flonase 50 MCG/ACT MCG/ACT _in_eac MCG/ACT h_nostr il} Glimepiride Glimepiride No Glimepirid 2 MG 2 MG e 2 MG Valium 2 MG Valium 2 MG No 1{table QD Valium 2 t_as_ne MG eded} Metoprolol Metoprolol No Metoprolol Tartrate Tartrate Tartrate 100 MG 100 MG 100 MG Cetirizine Cetirizine No 1{table QD Cetirizine HCl 10 MG HCl 10 MG t} HCl 10 MG DULoxetine DULoxetine No 1{capsu QD DULoxetine HCl 60 MG HCl 60 MG le} HCl 60 MG Cipro 500 Cipro 500 No 1{table BID Cipro 500 MG MG t} MG Meclizine Meclizine No QD Meclizine HCl 25 MG HCl 25 MG HCl 25 MG metroNIDAZO metroNIDAZO No 1{table BID metroNIDAZ LE 500 MG LE 500 MG t} OLE 500 MG metroNIDAZO metroNIDAZO No 1{table TID metroNIDAZ LE 500 MG LE 500 MG t} OLE 500 MG predniSONE predniSONE No QD predniSONE 20 MG 20 MG 20 MG Azithromyci Azithromyci No QD Azithromyc n 250 MG n 250 MG in 250 MG Montelukast Montelukast No 1{table QD Montelukas Sodium 10 Sodium 10 t_in_th t Sodium MG MG e_eveni 10 MG ng} Flonase 50 Flonase 50 No 2{spray QD Flonase 50 MCG/ACT MCG/ACT _in_eac MCG/ACT h_nostr il} Rosuvastati Rosuvastati No Rosuvastat n Calcium n Calcium in Calcium 20 MG 20 MG 20 MG Losartan Losartan No 1{table QD Losartan Potassium Potassium t} Potassium 50 MG 50 MG 50 MG Zofran 8 MG Zofran 8 MG No 1{table QD Zofran 8 t_as_ne MG eded} Neomycin-Po Neomycin-Po No 4{drops TID Neomycin-P lymyxin-HC lymyxin-HC _into_a olymyxin-H 3.585405-1 3.534302-1 ffected C _ear} 3.5- 1 Losartan Losartan No Losartan Potassium Potassium Potassium 50 MG 50 MG 50 MG Flonase 50 Flonase 50 No 2{spray QD Flonase 50 MCG/ACT MCG/ACT _in_eac MCG/ACT h_nostr il} Glimepiride Glimepiride No Glimepirid 2 MG 2 MG e 2 MG Valium 2 MG Valium 2 MG No 1{table QD Valium 2 t_as_ne MG eded} Metoprolol Metoprolol No Metoprolol Tartrate Tartrate Tartrate 100 MG 100 MG 100 MG Cetirizine Cetirizine No 1{table QD Cetirizine HCl 10 MG HCl 10 MG t} HCl 10 MG DULoxetine DULoxetine No 1{capsu QD DULoxetine HCl 60 MG HCl 60 MG le} HCl 60 MG Cipro 500 Cipro 500 No 1{table BID Cipro 500 MG MG t} MG Flonase 50 Flonase 50 No 2{spray QD Flonase 50 MCG/ACT MCG/ACT _in_eac MCG/ACT h_nostr il} Azithromyci Azithromyci No QD Azithromyc n 250 MG n 250 MG in 250 MG Losartan Losartan No Losartan Potassium Potassium Potassium 50 MG 50 MG 50 MG Zofran 8 MG Zofran 8 MG No 1{table QD Zofran 8 t_as_ne MG eded} metroNIDAZO metroNIDAZO No 1{table TID metroNIDAZ LE 500 MG LE 500 MG t} OLE 500 MG Valium 2 MG Valium 2 MG No 1{table QD Valium 2 t_as_ne MG eded} DULoxetine DULoxetine No 1{capsu QD DULoxetine HCl 60 MG HCl 60 MG le} HCl 60 MG Metoprolol Metoprolol No Metoprolol Tartrate Tartrate Tartrate 100 MG 100 MG 100 MG Flonase 50 Flonase 50 No 2{spray QD Flonase 50 MCG/ACT MCG/ACT _in_eac MCG/ACT h_nostr il} Neomycin-Po Neomycin-Po No 4{drops TID Neomycin-P lymyxin-HC lymyxin-HC _into_a olymyxin-H 3.511957-3 3.537524-0 ffected C _ear} 3.5- Cetirizine Cetirizine No 1{table QD Cetirizine HCl 10 MG HCl 10 MG t} HCl 10 MG metroNIDAZO metroNIDAZO No 1{table BID metroNIDAZ LE 500 MG LE 500 MG t} OLE 500 MG Meclizine Meclizine No QD Meclizine HCl 25 MG HCl 25 MG HCl 25 MG Losartan Losartan No 1{table QD Losartan Potassium Potassium t} Potassium 50 MG 50 MG 50 MG Rosuvastati Rosuvastati No Rosuvastat n Calcium n Calcium in Calcium 20 MG 20 MG 20 MG predniSONE predniSONE No QD predniSONE 20 MG 20 MG 20 MG Glimepiride Glimepiride No Glimepirid 2 MG 2 MG e 2 MG Montelukast Montelukast No 1{table QD Montelukas Sodium 10 Sodium 10 t_in_th t Sodium MG MG e_eveni 10 MG ng} Azithromyci Azithromyci No QD Azithromyc n 250 MG n 250 MG in 250 MG predniSONE predniSONE No QD predniSONE 20 MG 20 MG 20 MG Cipro 500 Cipro 500 No 1{table BID Cipro 500 MG MG t} MG predniSONE predniSONE No predniSONE 20 MG 20 MG 20 MG Rosuvastati Rosuvastati No Rosuvastat n Calcium n Calcium in Calcium 20 MG 20 MG 20 MG metroNIDAZO metroNIDAZO No 1{table BID metroNIDAZ LE 500 MG LE 500 MG t} OLE 500 MG metroNIDAZO metroNIDAZO No 1{table TID metroNIDAZ LE 500 MG LE 500 MG t} OLE 500 MG Flonase 50 Flonase 50 No 2{spray QD Flonase 50 MCG/ACT MCG/ACT _in_eac MCG/ACT h_nostr il} Meclizine Meclizine No QD Meclizine HCl 25 MG HCl 25 MG HCl 25 MG Cetirizine Cetirizine No 1{table QD Cetirizine HCl 10 MG HCl 10 MG t} HCl 10 MG Glimepiride Glimepiride No Glimepirid 2 MG 2 MG e 2 MG Losartan Losartan No 1{table QD Losartan Potassium Potassium t} Potassium 50 MG 50 MG 50 MG DULoxetine DULoxetine No 1{capsu QD DULoxetine HCl 60 MG HCl 60 MG le} HCl 60 MG Metoprolol Metoprolol No Metoprolol Tartrate Tartrate Tartrate 100 MG 100 MG 100 MG Valium 2 MG Valium 2 MG No 1{table QD Valium 2 t_as_ne MG eded} Zofran 8 MG Zofran 8 MG No 1{table QD Zofran 8 t_as_ne MG eded} Montelukast Montelukast No 1{table QD Montelukas Sodium 10 Sodium 10 t_in_th t Sodium MG MG e_eveni 10 MG ng} Methocarbam Methocarbam No Methocarba ol 500 MG ol 500 MG mol 500 MG Losartan Losartan No Losartan Potassium Potassium Potassium 50 MG 50 MG 50 MG Neomycin-Po Neomycin-Po No 4{drops TID Neomycin-P lymyxin-HC lymyxin-HC _into_a olymyxin-H 3.-1 3. ffected C _ear} 3. Flonase 50 Flonase 50 No 2{spray QD Flonase 50 MCG/ACT MCG/ACT _in_eac MCG/ACT h_nostr il} Rosuvastati Rosuvastati No Rosuvastat n Calcium n Calcium in Calcium 20 MG 20 MG 20 MG Methocarbam Methocarbam No Methocarba ol 500 MG ol 500 MG mol 500 MG Losartan Losartan No 1{table QD Losartan Potassium Potassium t} Potassium 50 MG 50 MG 50 MG Valium 2 MG Valium 2 MG No 1{table QD Valium 2 t_as_ne MG eded} Metoprolol Metoprolol No BID Metoprolol Tartrate Tartrate Tartrate 100 MG 100 MG 100 MG Meclizine Meclizine No QD Meclizine HCl 25 MG HCl 25 MG HCl 25 MG metroNIDAZO metroNIDAZO No 1{table TID metroNIDAZ LE 500 MG LE 500 MG t} OLE 500 MG Glimepiride Glimepiride No Glimepirid 2 MG 2 MG e 2 MG Albuterol Albuterol No 2{puff_ 6xD Albuterol Sulfate HFA Sulfate HFA as_need Sulfate 108 (90 108 (90 ed} HFA 108 Base) Base) (90 Base) MCG/ACT MCG/ACT MCG/ACT predniSONE predniSONE No QD predniSONE 10 MG 10 MG 10 MG Azithromyci Azithromyci No QD Azithromyc n 250 MG n 250 MG in 250 MG Azithromyci Azithromyci No QD Azithromyc n 250 MG n 250 MG in 250 MG Zofran 8 MG Zofran 8 MG No 1{table QD Zofran 8 t_as_ne MG eded} Benzonatate Benzonatate No 1{capsu TID Benzonatat 200 MG 200 MG le} e 200 MG Cetirizine Cetirizine No 1{table QD Cetirizine HCl 10 MG HCl 10 MG t} HCl 10 MG predniSONE predniSONE No predniSONE 20 MG 20 MG 20 MG Flonase 50 Flonase 50 No 2{spray QD Flonase 50 MCG/ACT MCG/ACT _in_eac MCG/ACT h_nostr il} Cipro 500 Cipro 500 No 1{table BID Cipro 500 MG MG t} MG DULoxetine DULoxetine No 1{capsu QD DULoxetine HCl 60 MG HCl 60 MG le} HCl 60 MG Flonase 50 Flonase 50 No 2{spray QD Flonase 50 MCG/ACT MCG/ACT _in_eac MCG/ACT h_nostr il} Neomycin-Po Neomycin-Po No 4{drops TID Neomycin-P lymyxin-HC lymyxin-HC _into_a olymyxin-H 3.597119-0 3.5-51092-2 ffected C _ear} 3.5-22092- 1 metroNIDAZO metroNIDAZO No 1{table BID metroNIDAZ LE 500 MG LE 500 MG t} OLE 500 MG Montelukast Montelukast No 1{table QD Montelukas Sodium 10 Sodium 10 t_in_th t Sodium MG MG e_eveni 10 MG ng} Losartan Losartan No Losartan Potassium Potassium Potassium 50 MG 50 MG 50 MG Rosuvastati Rosuvastati No Rosuvastat n Calcium n Calcium in Calcium 20 MG 20 MG 20 MG Methocarbam Methocarbam No Methocarba ol 500 MG ol 500 MG mol 500 MG Losartan Losartan No 1{table QD Losartan Potassium Potassium t} Potassium 50 MG 50 MG 50 MG Valium 2 MG Valium 2 MG No 1{table QD Valium 2 t_as_ne MG eded} Metoprolol Metoprolol No BID Metoprolol Tartrate Tartrate Tartrate 100 MG 100 MG 100 MG Meclizine Meclizine No QD Meclizine HCl 25 MG HCl 25 MG HCl 25 MG metroNIDAZO metroNIDAZO No 1{table TID metroNIDAZ LE 500 MG LE 500 MG t} OLE 500 MG Glimepiride Glimepiride No Glimepirid 2 MG 2 MG e 2 MG Albuterol Albuterol No 2{puff_ 6xD Albuterol Sulfate HFA Sulfate HFA as_need Sulfate 108 (90 108 (90 ed} HFA 108 Base) Base) (90 Base) MCG/ACT MCG/ACT MCG/ACT predniSONE predniSONE No QD predniSONE 10 MG 10 MG 10 MG Azithromyci Azithromyci No QD Azithromyc n 250 MG n 250 MG in 250 MG Azithromyci Azithromyci No QD Azithromyc n 250 MG n 250 MG in 250 MG Zofran 8 MG Zofran 8 MG No 1{table QD Zofran 8 t_as_ne MG eded} Benzonatate Benzonatate No 1{capsu TID Benzonatat 200 MG 200 MG le} e 200 MG Cetirizine Cetirizine No 1{table QD Cetirizine HCl 10 MG HCl 10 MG t} HCl 10 MG predniSONE predniSONE No predniSONE 20 MG 20 MG 20 MG Flonase 50 Flonase 50 No 2{spray QD Flonase 50 MCG/ACT MCG/ACT _in_eac MCG/ACT h_nostr il} Cipro 500 Cipro 500 No 1{table BID Cipro 500 MG MG t} MG DULoxetine DULoxetine No 1{capsu QD DULoxetine HCl 60 MG HCl 60 MG le} HCl 60 MG Flonase 50 Flonase 50 No 2{spray QD Flonase 50 MCG/ACT MCG/ACT _in_eac MCG/ACT h_nostr il} Neomycin-Po Neomycin-Po No 4{drops TID Neomycin-P lymyxin-HC lymyxin-HC _into_a olymyxin-H 3.5-34515-5 3.5-92958-1 ffected C _ear} 3.5-57260- 1 metroNIDAZO metroNIDAZO No 1{table BID metroNIDAZ LE 500 MG LE 500 MG t} OLE 500 MG Montelukast Montelukast No 1{table QD Montelukas Sodium 10 Sodium 10 t_in_th t Sodium MG MG e_eveni 10 MG ng} Losartan Losartan No Losartan Potassium Potassium Potassium 50 MG 50 MG 50 MG Rosuvastati Rosuvastati No Rosuvastat n Calcium n Calcium in Calcium 20 MG 20 MG 20 MG Methocarbam Methocarbam No Methocarba ol 500 MG ol 500 MG mol 500 MG Losartan Losartan No 1{table QD Losartan Potassium Potassium t} Potassium 50 MG 50 MG 50 MG Valium 2 MG Valium 2 MG No 1{table QD Valium 2 t_as_ne MG eded} Metoprolol Metoprolol No BID Metoprolol Tartrate Tartrate Tartrate 100 MG 100 MG 100 MG Meclizine Meclizine No QD Meclizine HCl 25 MG HCl 25 MG HCl 25 MG metroNIDAZO metroNIDAZO No 1{table TID metroNIDAZ LE 500 MG LE 500 MG t} OLE 500 MG Glimepiride Glimepiride No Glimepirid 2 MG 2 MG e 2 MG Albuterol Albuterol No 2{puff_ 6xD Albuterol Sulfate HFA Sulfate HFA as_need Sulfate 108 (90 108 (90 ed} HFA 108 Base) Base) (90 Base) MCG/ACT MCG/ACT MCG/ACT predniSONE predniSONE No QD predniSONE 10 MG 10 MG 10 MG Azithromyci Azithromyci No QD Azithromyc n 250 MG n 250 MG in 250 MG Azithromyci Azithromyci No QD Azithromyc n 250 MG n 250 MG in 250 MG Zofran 8 MG Zofran 8 MG No 1{table QD Zofran 8 t_as_ne MG eded} Benzonatate Benzonatate No 1{capsu TID Benzonatat 200 MG 200 MG le} e 200 MG Cetirizine Cetirizine No 1{table QD Cetirizine HCl 10 MG HCl 10 MG t} HCl 10 MG predniSONE predniSONE No predniSONE 20 MG 20 MG 20 MG Flonase 50 Flonase 50 No 2{spray QD Flonase 50 MCG/ACT MCG/ACT _in_eac MCG/ACT h_nostr il} Cipro 500 Cipro 500 No 1{table BID Cipro 500 MG MG t} MG DULoxetine DULoxetine No 1{capsu QD DULoxetine HCl 60 MG HCl 60 MG le} HCl 60 MG Flonase 50 Flonase 50 No 2{spray QD Flonase 50 MCG/ACT MCG/ACT _in_eac MCG/ACT h_nostr il} Neomycin-Po Neomycin-Po No 4{drops TID Neomycin-P lymyxin-HC lymyxin-HC _into_a olymyxin-H 3.-1 3. ffected C _ear} 3. metroNIDAZO metroNIDAZO No 1{table BID metroNIDAZ LE 500 MG LE 500 MG t} OLE 500 MG Montelukast Montelukast No 1{table QD Montelukas Sodium 10 Sodium 10 t_in_th t Sodium MG MG e_eveni 10 MG ng} Losartan Losartan No Losartan Potassium Potassium Potassium 50 MG 50 MG 50 MG Rosuvastati Rosuvastati No Rosuvastat n Calcium n Calcium in Calcium 20 MG 20 MG 20 MG Methocarbam Methocarbam No Methocarba ol 500 MG ol 500 MG mol 500 MG Losartan Losartan No 1{table QD Losartan Potassium Potassium t} Potassium 50 MG 50 MG 50 MG Valium 2 MG Valium 2 MG No 1{table QD Valium 2 t_as_ne MG eded} Metoprolol Metoprolol No BID Metoprolol Tartrate Tartrate Tartrate 100 MG 100 MG 100 MG Meclizine Meclizine No QD Meclizine HCl 25 MG HCl 25 MG HCl 25 MG metroNIDAZO metroNIDAZO No 1{table TID metroNIDAZ LE 500 MG LE 500 MG t} OLE 500 MG Glimepiride Glimepiride No Glimepirid 2 MG 2 MG e 2 MG Albuterol Albuterol No 2{puff_ 6xD Albuterol Sulfate HFA Sulfate HFA as_need Sulfate 108 (90 108 (90 ed} HFA 108 Base) Base) (90 Base) MCG/ACT MCG/ACT MCG/ACT predniSONE predniSONE No QD predniSONE 10 MG 10 MG 10 MG Azithromyci Azithromyci No QD Azithromyc n 250 MG n 250 MG in 250 MG Azithromyci Azithromyci No QD Azithromyc n 250 MG n 250 MG in 250 MG Zofran 8 MG Zofran 8 MG No 1{table QD Zofran 8 t_as_ne MG eded} Benzonatate Benzonatate No 1{capsu TID Benzonatat 200 MG 200 MG le} e 200 MG Cetirizine Cetirizine No 1{table QD Cetirizine HCl 10 MG HCl 10 MG t} HCl 10 MG predniSONE predniSONE No predniSONE 20 MG 20 MG 20 MG Flonase 50 Flonase 50 No 2{spray QD Flonase 50 MCG/ACT MCG/ACT _in_eac MCG/ACT h_nostr il} Cipro 500 Cipro 500 No 1{table BID Cipro 500 MG MG t} MG DULoxetine DULoxetine No 1{capsu QD DULoxetine HCl 60 MG HCl 60 MG le} HCl 60 MG Flonase 50 Flonase 50 No 2{spray QD Flonase 50 MCG/ACT MCG/ACT _in_eac MCG/ACT h_nostr il} Neomycin-Po Neomycin-Po No 4{drops TID Neomycin-P lymyxin-HC lymyxin-HC _into_a olymyxin-H 3.572285-4 3.583074-9 ffected C _ear} 3.- metroNIDAZO metroNIDAZO No 1{table BID metroNIDAZ LE 500 MG LE 500 MG t} OLE 500 MG Montelukast Montelukast No 1{table QD Montelukas Sodium 10 Sodium 10 t_in_th t Sodium MG MG e_eveni 10 MG ng} Losartan Losartan No Losartan Potassium Potassium Potassium 50 MG 50 MG 50 MG Cipro 500 Cipro 500 No 1{table BID MG MG t} Losartan Losartan No 1{table QD Potassium Potassium t} 50 MG 50 MG Flonase 50 Flonase 50 No 2{spray QD MCG/ACT MCG/ACT _in_eac h_nostr il} Metoprolol Metoprolol No 1{table BID Tartrate Tartrate t_with_ 100 MG 100 MG food} metroNIDAZO metroNIDAZO No 1{table BID LE 500 MG LE 500 MG t} metroNIDAZO metroNIDAZO No 1{table TID LE 500 MG LE 500 MG t} Montelukast Montelukast No 1{table QD Sodium 10 Sodium 10 t_in_th MG MG e_eveni ng} Meclizine Meclizine No QD HCl 25 MG HCl 25 MG Cetirizine Cetirizine No 1{table QD HCl 10 MG HCl 10 MG t} DULoxetine DULoxetine No 1{capsu QD HCl 60 MG HCl 60 MG le} Albuterol Albuterol No 2{puff_ 6xD Sulfate HFA Sulfate HFA as_need 108 (90 108 (90 ed} Base) Base) MCG/ACT MCG/ACT Benzonatate Benzonatate No 1{capsu TID 200 MG 200 MG le} predniSONE predniSONE No QD 10 MG 10 MG Rosuvastati Rosuvastati No n Calcium n Calcium 20 MG 20 MG Flonase 50 Flonase 50 No 2{spray QD MCG/ACT MCG/ACT _in_eac h_nostr il} Glimepiride Glimepiride No 1{table QD 2 MG 2 MG t_with_ breakfa st_or_t he_firs t_main_ meal_of _the_da y} Neomycin-Po Neomycin-Po No 4{drops TID lymyxin-HC lymyxin-HC _into_a 3.575750-6 3.566343-5 ffected _ear} Losartan Losartan No Potassium Potassium 50 MG 50 MG Azithromyci Azithromyci No QD n 250 MG n 250 MG Amoxicillin Amoxicillin No 1{table BID -Pot -Pot t} Clavulanate Clavulanate 875-125 MG 875-125 MG Benzonatate Benzonatate No 1{capsu 200 MG 200 MG le_as_n eeded} Azithromyci Azithromyci No QD n 250 MG n 250 MG predniSONE predniSONE No 20 MG 20 MG Methocarbam Methocarbam No ol 500 MG ol 500 MG Zofran 8 MG Zofran 8 MG No 1{table QD t_as_ne eded} Valium 2 MG Valium 2 MG No 1{table QD t_as_ne eded} Immunizations Ordered Immunization Filled Immunization Date Status [facility]men ts [facility] Afluria Afluria 2021-06-24 Completed [facility] 11:16:00 - [facility] Afluria Afluria 2021-06-24 [facility]pleted [facility] 11:16:00 - [facility] Afluria Afluria 2021-06-24 [facility]pleted [facility] 11:16:00 - [facility] Afluria Afluria 2021-06-24 Completed [facility] 11:16:00 - [facility] Afluria Afluria 2021-06-24 Completed [facility] 11:16:00 - [facility] Afluria Afluria 2021-06-24 Completed [facility] 11:16:00 - [facility] Afluria Afluria 2021-06-24 [facility]pleted [facility] 11:16:00 - [facility] Afluria Afluria 2021-06-24 Completed [facility] 11:16:00 - [facility] Afluria Afluria 2021-06-24 [facility]pleted [facility] 11:16:00 - [facility] Afluria Afluria 2021-06-24 [facility]pleted [facility] 11:16:00 - [facility] Afluria Afluria 2021-06-24 Completed [facility] 11:16:00 - [facility] Afluria Afluria 2021-06-24 Completed [facility] 11:16:00 - [facility] Afluria Afluria 2021-06-24 Completed [facility] 11:16:00 - [facility] Afluria Afluria 2021-06-24 Completed [facility] 11:16:00 - [facility] Afluria Afluria 2021-06-24 Completed [facility] 11:16:00 - [facility] Afluria Afluria 2021-06-24 Completed [facility] 11:16:00 - [facility] Afluria Afluria 2021-06-24 Completed [facility] 11:16:00 - [facility] Afluria Afluria 2021-06-24 [facility]pleted [facility] 11:16:00 [facility] Afluria Afluria 2021-06-24 Completed [facility] 11:16:00 [facility] Afluria Afluria 2021-06-24 Completed [facility] 11:16:00 [facility] Afluria Afluria 2021-06-24 Completed [facility] 11:16:00 [facility] Kenalog Kenalog 2019-08-22 Completed [facility] (Triamcinolone) (Triamcinolone) 17:09:00 [facility] Kenalog Kenalog 2019-08-22 Completed [facility] (Triamcinolone) (Triamcinolone) 17:09:00 - [facility] Kenalog Kenalog 2019-08-22 Completed [facility] (Triamcinolone) (Triamcinolone) 17::00 - [facility] Kenalog Kenalog 2019-08-22 Completed [facility] (Triamcinolone) (Triamcinolone) 17:09:00 - [facility] 2019-08-22 Com[facility] (Triamcinolone) (Triamcinolone) 17:09:00 - I [facility] 2019-08-22 Completed [facility] (Triamcinolone) (Triamcinolone) 17:09: - I [facility] 2019-08-22 Com[facility] (Triamcinolone) (Triamcinolone) 17:09: - I [facility] 2019-08-22 Com[facility] (Triamcinolone) (Triamcinolone) 17:: - [facility] 2019-08-22 Completed [facility] (Triamcinolone) (Triamcinolone) 17:09:00 - [facility] Flucelvax - Flucelvax - 2019-06-02 Completed [facility] multidose [facility]ial multidose vial 14:30:00 - [facility] Flucelvax - Flucelvax - 2019-06-02 Completed [facility] multidose [facility]ial multidose vial 14:30:00 - [facility] Flucelvax - Flucelvax - 2019-06-02 [facility]pleted [facility]ial multidose vial 14:30:00 - [facility] Flucelvax - Flucelvax - 2019-06-02 [facility]ial multidose vial 14:30:00 - [facility] Flucelvax - Flucelvax - 2019-06-02 Completed [facility]ial multidose vial 14:30:00 - [facility] Flucelvax - Flucelvax - 2019-06-02 Completed [facility]ial multidose vial 14:30:00 - [facility] Flucelvax - Flucelvax - 2019-06-02 [facility]pleted [facility] multidose vial 14:30:00 - [facility] Flucelvax - Flucelvax - 2019-06-02 [facility]pleted [facility] multidose vial 14:30:00 - [facility] Flucelvax - Flucelvax - 2019-06-02 Completed [facility]ial multidose vial 14:30:00 - [facility] Flucelvax - Flucelvax - 2019-06-02 Completed [facility]ose [facility]ial multidose vial 14:30:00 - [facility] Flucelvax - Flucelvax - 2019-06-02 [facility]pleted [facility]ial multidose vial 14:30:00 - [facility] Flucelvax - Flucelvax - 2019-06-02 Completed [facility]ial multidose vial 14:30:00 - [facility] Flucelvax - Flucelvax - 2019-06-02 Completed [facility]ose [facility]ial multidose vial 14:30:00 - [facility] Flucelvax - Flucelvax - 2019-06-02 Completed [facility]ial multidose vial 14:30:00 - [facility] Flucelvax - Flucelvax - 2019-06-02 Completed [facility] multidose vial 14:30:00 - [facility] Flucelvax - Flucelvax - 2019-06-02 Completed [facility]ial multidose vial 14:30:00 - [facility] Flucelvax - Flucelvax - 2019-06-02 Completed [facility]ial multidose vial 14:30:00 - [facility] Flucelvax - Flucelvax - 2019-06-02 Completed [facility]ial multidose vial 14:30:00 - [facility] Flucelvax - Flucelvax - 2019-06-02 Completed [facility]ial multidose vial 14:30:00 - [facility] Flucelvax - Flucelvax - 2019-06-02 [facility]pleted [facility] multidose vial 14:30:00 - [facility] Flucelvax - Flucelvax - 2019-06-02 Completed [facility]ial multidose vial 14:30:00 - [facility] Flucelvax - Flucelvax - 2019-06-02 Completed [facility]ial multidose vial 14:30:00 - [facility] Flucelvax - Flucelvax - 2019-06-02 Completed [facility]ial multidose vial 14:30:00 - [facility] Flucelvax - Flucelvax - 2019-06-02 Completed [facility] multidose vial 14:30:00 - [facility] Flucelvax - Flucelvax - 2019-06-02 Completed [facility]ial multidose vial 14:30:00 - [facility] Flucelvax - Flucelvax - 2019-06-02 Completed [facility]ial multidose vial 14:30:00 - [facility] Flucelvax - Flucelvax - 2019-06-02 Completed [facility]ial multidose vial 14:30:00 - [facility] Flucelvax - Flucelvax - 2019-06-02 Completed [facility]ial multidose vial 14:30:00 - [facility] Flucelvax - Flucelvax - 2019-06-02 Completed [facility]ial multidose vial 14:30:00 - [facility] Flucelvax - Flucelvax - 2019-06-02 Completed [facility]ial multidose vial 14:30:00 - [facility] Flucelvax - Flucelvax - 2019-06-02 Completed [facility]ial multidose vial 14:30:00 - [facility] Flucelvax - Flucelvax - 2019-06-02 Completed [facility] multidose vial 00:00:00 - [facility] Vital Signs Vital Name Observation Time Observation Value Comments Source height 2022-08-17 15:20:00 63 [in_i] [facility] weight 2022-08-17 15:20:00 219.2 [lb_av] [facility] bmi 2022-08-17 15:20:00 38.83 kg/m2 [facility] height 2021-07-11 11:00:00 63 [in_i] [facility] weight 2021-07-11 11:00:00 219.2 [lb_av] [facility] bmi 2021-07-11 11:00:00 38.83 kg/m2 [facility] height 2021-06-24 10:40:00 63 [in_i] [facility] weight 2021-06-24 10:40:00 219.2 [lb_av] [facility] temperature 2021-06-24 10:40:00 97.4 [degF] [facility] bmi 2021-06-24 10:40:00 38.83 kg/m2 [facility] oximetry 2021-06-24 10:40:00 95 % [facility] respiratory rate 2021-06-24 10:40:00 16 /min Comm on [facility] blood pressure 2021-06-24 10:40:00 137 mm[Hg] [facility] systolic [facility] blood pressure 2021-06-24 10:40:00 71 mm[Hg] [facility] diastolic [facility] Procedures This patient has no known procedures. Encounters Start End Encounter Admission Attending Care Care Encounter Source Date/Time Date/Time Type Type Clinicians Facility Department ID 2022-12-28 Outpatient [place], [facility] [id number] Common 08:11:00 Avnee [id number] [facility] 2022-12-14 Outpatient Herndon, [facility] Common 15:12:03 Avnee [id number] [facility] 2022-11-03 Outpatient Barb, [facility] Common 16:22:00 Heidi [id number] [facility] 2022-10-26 Outpatient Barb, [facility] Common 12:01:00 Heidi [id number] [facility] 2021-09-03 Outpatient Nathan, Na [facility]ML[facility] [id number] Common 14:13:52 [id number] [facility] 2021-09-03 Outpatient Nathan, Na [facility] [id number] Common 13:27:33 [id number] [facility] 2021-09-03 Outpatient Nathan, Na [facility]LML[facility] [id number] Common 12:46:20 [id number] [facility] 2021-09-03 Outpatient Nathan, Na [facility] [id number] Common 11:39:37 [id number] [facility] 2021-09-03 Outpatient Nathan, Na [facility] [id number] Common 11:33:38 [id number] [facility] 2021-09-03 Outpatient Nathan, Na [facility] [id number] Common 11:31:13 [id number] [facility] 2021-09-03 Outpatient Nathan, Na [facility] [id number] Common 11:20:06 [id number] [facility] 2021-09-03 Outpatient Nathan, Na [facility] [id number] Common 11:10:40 [id number] [facility] 2021-09-03 Outpatient Nathan, Na [facility] [id number] Common 11:00:37 [id number] [facility] 2021-09-03 Outpatient Nathan, Na [facility] [id number] Common 10:59:24 [id number] [facility] 2022-08-17 2022-08-17 OFFICE [facility] ST[facility] [id number] Co mmon 00:00:00 00:00:00 VISIT EST Spir it PT LEVEL 3 [facility] 2022-08-17 2022-08-17 (TEL) [facility] [id number] [facility] 00:00:00 00:00:00 [facility] 2022-08-17 2022-08-17 (TEL) STL[facility]C [facility] [id number] [facility] 00:00:00 00:00:00 [facility] 2022-08-17 2022-08-17 (TEL) STL[facility]C [facility] [id number] [facility] 00:00:00 00:00:00 [facility] 2022-05-14 2022-05-14 OFFICE [facility] [id number] [facility] 00:00:00 00:00:00 VISIT EST Spir it PT LEVEL 3 [facility] 2022-05-13 2022-05-13 (TEL) STLMLC [facility] [id number] [facility] 00:00:00 00:00:00 [facility] 2022-03-11 2022-03-11 (TEL) STLMLC [facility] [id number] [facility] 00:00:00 00:00:00 [facility] 2022-03-11 2022-03-11 OFFICE [facility]C [facility] [id number] [facility] m[facility] 00:00:00 00:00:00 VISIT EST Spir it PT LEVEL 3 [facility] 2022-02-24 2022-02-24 (TEL) STL[facility]C [facility] [id number] [facility] 00:00:00 00:00:00 [facility] 2022-02-12 2022-02-12 (TEL) STL[facility]C [facility] [id number] [facility] 00:00:00 00:00:00 [facility] 2022-02-12 2022-02-12 OFFICE [facility] [id number] [facility] m[facility] 00:00:00 00:00:00 VISIT EST Spir it PT LEVEL 3 [facility] 2022-02-11 2022-02-11 (TEL) STL[facility]C [facility] [id number] [facility] 00:00:00 00:00:00 [facility] 2021-12-03 2021-12-03 (TEL) STL[facility]C [facility] [id number] [facility] 00:00:00 00:00:00 [facility] 2021-11-19 2021-11-19 OFFICE [facility] [id number] [facility] 00:00:00 00:00:00 [facility] PT - [facility] LEVEL 3 [facility] 2021-11-17 2021-11-17 (TEL) STLMLC STL[facility]C [id number] Co mmon 00:00:00 00:00:00 [facility] 2021-09-24 2021-09-24 (TEL) STLMLC [facility]C [id number] [facility] 00:00:00 00:00:00 [facility] 2021-08-18 2021-08-18 (TEL) STLMLC [facility] [id number] [facility] 00:00:00 00:00:00 [facility] 2021-08-15 2021-08-15 (TEL) STLMLC ST[facility]C [id number] [facility] 00:00:00 00:00:00 [facility] 2021-08-15 2021-08-15 OFFICE [facility] [id number] [facility] 00:00:00 00:00:00 VISIT [facility] PT LEVEL [address] [place] [address] 2021-07-11 2021-07-11 (TEL) [facility]C ST[facility] [id number] [facility] 00:00:00 00:00:00 [facility] 2021-07-11 2021-07-11 OFFICE [facility] [id number] [facility] 00:00:00 00:00:00 VISIT [facility] PT LEVEL [address] [place] [address] 2021-06-24 2021-06-24 (ESTPT) [facility]C ST[facility] [id number] [facility] 00:00:00 00:00:00 Jules jamison [facility] 2021-05-29 2021-05-29 (TEL) STLMLC STLMLC [id number] [facility] 00:00:00 00:00:00 [facility] 2021-05-14 2021-05-14 (TEL) STLMLC STL[facility]C [id number] [facility] 00:00:00 00:00:00 [facility] 2021-05-14 2021-05-14 OFFICE [facility] ST[facility] [id number] [facility] 00:00:00 00:00:00 VISIT EST Spir it PT LEVEL 3 [facility] 2021-04-18 2021-04-18 OFFICE [facility] [id number] [facility] 00:00:00 00:00:00 VISIT EST Spir [facility] PT LEVEL 3 [facility] 2021-04-17 2021-04-17 (TEL) STL[facility]C ST[facility] [id number] [facility] 00:00:00 00:00:00 [facility] 2021-04-09 2021-04-09 (TEL) STLMLC STL[facility]C [id number] [facility] 00:00:00 00:00:00 [facility] 2021-04-03 2021-04-03 (TEL) [facility]C [facility] [id number] [facility] 00:00:00 00:00:00 [facility] 2021-04-03 2021-04-03 OFFICE [facility] ST[facility]C [id number] [facility] 00:00:00 00:00:00 VISIT EST Spir [facility] PT LEVEL 3 [facility] 2021-03-13 2021-03-13 (TEL) STLMLC STL[facility]C [id number] [facility] 00:00:00 00:00:00 [facility] 2021-03-03 2021-03-03 Outpatient [facility] [id number] Common 00:00:00 00:00:00 [facility] 2021-02-26 2021-02-26 Outpatient [facility] [id number] [facility] 00:00:00 00:00:00 [facility] 2020-11-07 2020-11-07 Outpatient [facility] [id number] [facility] 00:00:00 00:00:00 [facility] 2020-11-05 2020-11-05 Outpatient [facility] [id number] [facility] 00:00:00 00:00:00 [facility] 2020-10-24 2020-10-24 Outpatient [facility] [id number] [facility] 00:00:00 00:00:00 [facility] 2020-10-24 2020-10-24 Outpatient [facility] [id number] [facility] 00:00:00 00:00:00 [facility] 2020-05-31 2020-05-31 Outpatient [facility] [id number] [facility] 00:00:00 00:00:00 [facility] 2020-03-11 2020-03-11 [id number] [facility] 15:43:00 15:43:[place] [address] [facility] 2020-03-08 2020-03-08 [id number] Common 13:45:00 13:45:00 [place] [address] [facility] 2020-03-07 2020-03-07 [facility] [id number] Common 17:22:00 17:22:00 [place] [address] [facility] 2020-03-07 2020-03-07 [facility] [id number] Common 16:40:00 16:40:00 [place] [address] [facility] 2020-03-06 2020-03-06 [facility] [id number] Common 11:04:00 11:04:[address] [facility] 2020-02-20 2020-02-20 [facility] [id number] Common 10:00:00 10:00:[address] [facility] 2020-02-19 2020-02-19 [facility] [id number] Common 08:56:00 08:56:[address] [facility] 2019-12-11 2019-12-11 [facility] [id number] Common 10:21:00 10:21:[address] [facility] 2019-12-08 2019-12-08 [facility] [id number] Common 13:15:00 13:15:00 [place] [address] [facility] 2019-12-07 2019-12-07 [facility] [id number] Common 10:11:00 10:11:00 [place] [address] [facility] 2019 2019 [facility] [id number] Common 16:00:00 16:00:00 [place] [address] [facility] 2019-11-22 2019-11-22 [facility] [id number] Common 08:28:00 08:28:00 [place] [address] [facility] 2019-11-21 2019-11-21 [facility] [id number] Common 09:00:00 09:00:00 [place] [address] [facility] 2019-08-22 2019-08-22 [facility] [id number] Common 16:20:00 16:20:00 [place] [address] [facility] 2019-08-08 2019-08-08 [facility] [id number] Common 14:37:00 14:37:00 [place] [address] [facility] 2019-06-30 2019-06-30 [facility] [id number] Common 14:00:00 14:00:00 [place] [address] [facility] 2019-06-22 2019-06-22 [facility] [id number] Common 16:34:00 16:34:00 [place] [address] [facility] 2019-06-02 2019-06-02 [facility] [id number] Common 13:00:00 13:00:00 [place] [address] [facility] 2019-03-31 2019-03-31 [facility] [id number] Common 13:40:00 13:40:00 [place] [address] [facility] 2019-03-01 2019-03-01 [facility] [id number] Common 10:00:00 10:00:00 [place] [address] [facility] 2019-02-20 2019-02-20 [facility] [id number] Common 10:00:00 10:00:00 [place] [address] [facility] 2019-02-14 2019-02-14 [facility] [id number] Common 09:40:00 09:40:00 [place] [address] [facility] 2019-02-07 2019-02-07 [facility] [id number] Common 11:20:00 11:20:00 [place] [address] [facility] 2019-01-05 2019-01-05 [facility] [id number] Common 15:15:00 15:15:00 t Specialty/U Sp reji Specialty rology - [facility] /[facility] 2018-12-15 2018-12-15 [facility] [id number] Common 15:15:00 15:15:00 t Specialty/U Sp reji Specialty rology - [facility] 2018-12-01 2018-12-01 [facility] [id number] Common 09:48:00 09:48:00 [facility] 2018-11-29 2018-11-29 [facility] [id number] Common 11:00:00 11:00:00 t Urgent Ur[facility] 2018-05-15 2018-05-15 [facility] [id number] Common 17:51:00 17:51:00 [place] [address] [facility] 2018-05-03 2018-05-03 [facility] [id number] Common 15:05:00 15:05:00 [place] [address] [facility] 2018-05-03 2018-05-03 [facility] [id number] Common 08:50:00 08:50:00 [place] [address] [facility] [facility] 2018-04-29 2018-04-29 [id number] Common 10:30:00 10:30:[place] [address] [facility] 2018-04-01 2018-04-01 [facility] [id number] Common 14:19:00 14:19:00 [place] [address] [facility] 2018-04-01 2018-04-01 [facility] [id number] Common 11:15:00 11:15:00 [place] [address] [facility] Results Test Description Test Time Test Comments Results Result Comments Source STREP A RAPID 2021-07-11 00:00:00 Test Item Value Reference Range Interpretation Comme nts Result (test code = 04039-5) Negative SARS-COV 2 AntigenSARS-COV 2 AntigenSARS-COV 2 AntigenSARS-COV 2 AntigenSARS-COV 2 AntigenSARS-COV 2 Antigen
[2023-03-03] MEDS ORDERED: NA CHLORIDE 0.9% 250 ML ONE (14:46)
[2023-03-03] MEDS ORDERED: PROMETHAZINE INJ 25 MG/ML AMP ONE (14:46)
[2023-03-03] MEDS ORDERED: KETOROLAC 30 MG/ML INJ ONE (14:46)
[2023-03-03] MEDS ORDERED: FAMOTIDINE 20 MG/2 ML VIAL IV ONE (14:46)
[2023-03-03] MEDS ORDERED: NA CHLORIDE 0.9% 1,000 ML ONE (14:46)
[2023-03-03] MEDS ORDERED: METRONIDAZOLE 500mg IVPB 500 MG/100 ML BAG IV ONE (14:46)
[2023-03-03 14:56] LABS: Specific Gravity 1.027 (1.005-1.030); Urine Bacteria None Seen /HPF (<20); Urine Bilirubin NEGATIVE (Negative); Urine Blood Negative (Negative); Urine Clarity Turbid (Clear); Urine Color Yellow (Yellow); Urine Glucose NEGATIVE (Negative); Urine Mucus 1+ /HPF (None Seen); Urine Protein 2+ (Negative); Urine RBC <5 /HPF (None Seen); Urine Urobilinogen Normal (Normal)
[2023-03-03 15:12] LABS: Absolute Lymphocytes (CBC) 2.6 K/uL (0.7-4.9); MPV 7.4 fL (7.6-11.3); RBC Red Blood Cell Count 5.06 M/uL (3.86-4.86)
[2023-03-03 15:30] LABS: Albumin 3.5 g/dL (3.4-5.0); Bilirubin Total 0.5 mg/dL (0.2-1.0); Potassium 3.5 mEq/L (3.5-5.1); Protein, Total 8.6 g/dL (6.4-8.2)
--- NOTE | 2023-03-03 17:33 | ER ---
Nurse's Notes [facility] Name: Tete Hinkle Age: 52 yrs Sex: Female : 1970 Arrival Date: 03/03/2023 Time: 12:46 Bed 13 Private MD: Diagnosis: Diarrhea, unspecified;Abdominal pain, Generalized Presentation: 03/03 13:04 Chief complaint: Patient states: diarrhea and nausea that began Wednesday, reports taking aa5 Pepto-Bismol without relief. Denies vomiting. Coronavirus screen: diarrhea. Ebola Screen: Patient denies exposure to infectious person. Initial Sepsis Screen: Does the patient meet any 2 criteria? No. Patient's initial sepsis screen is negative. Does the patient have a suspected source of infection? No. Patient's initial sepsis screen is negative. Risk Assessment: Do you want to hurt yourself or someone else? Patient reports no desire to harm self or others. Onset of symptoms was February 2023. 13:04 Method Of Arrival: Ambulatory aa5 13:04 Acuity: DEANDRA 3 aa5 Historical: - Allergies: 13:06 NKDA; aa5 - PMHx: 13:06 Asthma; Colitis; Diabetes - NIDDM; Diverticulitis; Hyperlipidemia; Hypertension; aa5 Stomach Ulcers; - PSHx: 13:06 bowel resection; aa5 - Immunization history:: Adult Immunizations unknown. - Social history:: Smoking status: Patient denies any tobacco usage or history of. Screenin:15 [facility] ED Fall Risk Assessment (Adult) History of falling in the last 3 months, ll1 including since admission No falls in past 3 months (0 pts) Confusion or Disorientation No (0 pts) Intoxicated or Sedated No (0 pts) Impaired Gait No (0 pts) Mobility Assist Device Used No (0 pt) Altered Elimination No (0 pt) Score/Fall Risk Level 0 - 2 = Low Risk. Abuse screen: Denies threats or abuse. Denies injuries from another. Nutritional screening: No deficits noted. Tuberculosis screening: No symptoms or risk factors identified. Assessment: 13:15 General: Appears in no apparent distress. comfortable, obese, Behavior is calm, ll1 cooperative, appropriate for age. Neuro: Level of Consciousness is awake, alert, obeys commands, Oriented to person, place, time, situation, Appropriate for age. Cardiovascular: Capillary refill < 3 seconds. Respiratory: Airway is patent Trachea midline Respiratory effort is even, labored, Respiratory pattern is symmetrical, tachypnea. GI: Abdomen is round non-distended, obese, Reports diarrhea, bloody stool, Patient currently denies nausea, vomiting. : No signs and/or symptoms were reported regarding the genitourinary system. EENT: No signs and/or symptoms were reported regarding the EENT system. Derm: No signs and/or symptoms reported regarding the dermatologic system. Skin is intact, is healthy with good turgor, Skin is pink, warm \T\ dry. Musculoskeletal: No signs and/or symptoms reported regarding the musculoskeletal system. Circulation, motion, and sensation intact. Capillary refill < 3 seconds, Range of motion: intact in all extremities. 14:15 Reassessment: Patient appears in no apparent distress at this time. No changes from ll1 previously documented assessment. Patient and/or family updated on plan of care and expected duration. Pain level reassessed. Patient is alert, oriented x 3, equal unlabored respirations, skin warm/dry/pink. 15:15 Reassessment: Patient appears in no apparent distress at this time. No changes from ll1 previously documented assessment. Patient and/or family updated on plan of care and expected duration. Pain level reassessed. Patient is alert, oriented x 3, equal unlabored respirations, skin warm/dry/pink. 16:34 Reassessment: Patient appears in no apparent distress at this time. No changes from kc6 previously documented assessment. Patient and/or family updated on plan of care and expected duration. Pain level reassessed. Patient is alert, oriented x 3, equal unlabored respirations, skin warm/dry/pink. Vital Signs: 13:04 BP 163 / 93; Pulse 85; Resp 18 S; Temp 97.8(TE); Pulse Ox 95% ; Weight 108.86 kg (R); aa5 Height 5 ft. 3 in. (R); 15:38 BP 171 / 94; Pulse 78; Resp 19 S; Pulse Ox 97% on R/A; ll1 16:34 BP 151 / 76; Pulse 66; Resp 16 S; Pulse Ox 97% on R/A; kc6 13:04 Body Mass Index 42.51 (108.86 kg, 160.02 cm) aa5 ED Course: 12:48 Patient arrived in ED. mg5 12:53 Mena Carrero FNP-C is [facility]. snw 12:53 Deyvi Thomas MD is Attending Physician. snw 13:04 Arm band placed on. aa5 13:05 Triage completed. aa5 13:15 Patient has correct armband on for positive identification. Bed in low position. Call ll1 light in reach. Side rails up X 1. 14:19 Andie Melo, RN is Primary Nurse. ll1 15:05 Inserted saline lock: 20 gauge in left antecubital area, using aseptic technique. Blood ll1 collected. 17:50 No provider procedures requiring assistance completed. IV discontinued, intact, kc6 bleeding controlled, No redness/swelling at site. Pressure dressing applied. Administered Medications: 15:05 Drug: NS 0.9% IV 1000 ml Route: IV; Rate: 1 bolus; Site: left antecubital; ll1 17:01 Follow up: Response: No adverse reaction; IV Status: Completed infusion; IV Intake: kc6 1000ml 15:05 Drug: Famotidine IVP 20 mg Route: IVP; Site: left antecubital; ll1 16:03 Follow up: Response: No adverse reaction ll1 15:05 Drug: TORadol - Ketorolac IVP 15 mg Route: IVP; Site: left antecubital; ll1 16:03 Follow up: Response: No adverse reaction; Pain is decreased ll1 15:05 Drug: Promethazine IVP 12.5 mg Route: IVP; Site: left antecubital; ll1 16:04 Follow up: Response: No adverse reaction kc6 15:05 Drug: NS 0.9% IV 250 ml Route: IV; Rate: bolus; Site: left antecubital; ll1 16:04 Follow up: Response: No adverse reaction; IV Status: Completed infusion; IV Intake: kc6 250ml 15:05 Drug: metroNIDAZOLE IVPB 500 mg Volume: 100 ml; Route: IVPB; Rate: 200 ml/hr; Infused ll1 Over: 30 mins; Site: left antecubital; 16:04 Follow up: Response: No adverse reaction; IV Status: Completed infusion; IV Intake: kc6 100ml 17:01 CANCELLED (Physician Discretion; unavailable): Albendazole 200 mg PO once kc6 Medication: 17:50 VIS not applicable for this client. kc6 Intake: 16:04 IV: 250ml; Total: 250ml. kc6 16:04 IV: 100ml; Total: 350ml. kc6 17:01 IV: 1000ml; Total: 1350ml. kc6 Outcome: 17:33 Discharge ordered by MD. higgins 17:50 Discharged to home ambulatory, with family. kc6 17:50 Condition: improved 17:50 Discharge instructions given to patient, Instructed on discharge instructions, follow up and referral plans. medication usage, Demonstrated understanding of instructions, follow-up care, medications, Prescriptions given X 4. 17:50 Patient left the ED. kc6 Signatures: Mena Carrero, CLERK MANAGER-C CLERK MANAGER-Csnw Michelle Fang, RN RN aa5 Andie Melo RN RN ll1 Natalie Childers RN RN kc6 Margarita Campbell mg5 Corrections: (The following items were deleted from the chart) 17:50 17:50 Discharge instructions given to patient, Instructed on discharge instructions, kc6 follow up and referral plans. medication usage, Demonstrated understanding of instructions, follow-up care, medications, Prescriptions given X 3, kc6
--- NOTE | 2023-03-03 17:33 | EDPHYS ---
Physician Documentation [facility] Name: Tete Hinkle Age: 52 yrs Sex: Female : 1970 Arrival Date: 03/03/2023 Time: 12:46 Bed 13 Private MD: ED Physician Deyvi Thomas HPI: 03/03 14:13 This 52 yrs old Female presents to ER via Ambulatory with complaints of snw Diarrhea. 14:13 The patient presents to the emergency department with nausea, diarrhea, that is snw continuous. Onset: The symptoms/episode began/occurred acutely. Onset: The symptoms/episode began/occurred 6 day(s) ago, and became persistent. Possible causes: travel, [place]. Severity of symptoms: At their worst the symptoms were moderate. The patient has not recently seen a physician. Historical: - Allergies: 13:06 NKDA; aa5 - PMHx: 13:06 Asthma; Colitis; Diabetes - NIDDM; Diverticulitis; Hyperlipidemia; Hypertension; aa5 Stomach Ulcers; - PSHx: 13:06 bowel resection; aa5 - Immunization history:: Adult Immunizations unknown. - Social history:: Smoking status: Patient denies any tobacco usage or history of. ROS: 16:25 Constitutional: Negative for fever, chills, and weight loss, Eyes: Negative for injury, snw pain, redness, and discharge, ENT: Negative for injury, pain, and discharge, Neck: Negative for injury, pain, and swelling, Cardiovascular: Negative for chest pain, palpitations, and edema, Respiratory: Negative for shortness of breath, cough, wheezing, and pleuritic chest pain, Back: Negative for injury and pain, : Negative for injury, bleeding, discharge, and swelling, MS/Extremity: Negative for injury and deformity, Skin: Negative for injury, rash, and discoloration, Neuro: Negative for headache, weakness, numbness, tingling, and seizure, Psych: Negative for depression, anxiety, suicide ideation, homicidal ideation, and hallucinations. 16:25 Abdomen/GI: Positive for abdominal pain, nausea, vomiting, diarrhea. Exam: 16:24 Constitutional: This is a well developed, well nourished patient who is awake, alert, snw and in no acute distress. Head/Face: Normocephalic, atraumatic. Eyes: Pupils equal round and reactive to light, extra-ocular motions intact. Lids and lashes normal. Conjunctiva and sclera are non-icteric and not injected. Cornea within normal limits. Periorbital areas with no swelling, redness, or edema. ENT: Nares patent. No nasal discharge, no septal abnormalities noted. Tympanic membranes are normal and external auditory canals are clear. Oropharynx with no redness, swelling, or masses, exudates, or evidence of obstruction, uvula midline. Mucous membranes moist. Neck: Trachea midline, no thyromegaly or masses palpated, and no cervical lymphadenopathy. Supple, full range of motion without nuchal rigidity, or vertebral point tenderness. No Meningismus. Chest/axilla: Normal chest wall appearance and motion. Nontender with no deformity. No lesions are appreciated. Cardiovascular: Regular rate and rhythm with a normal S1 and S2. No gallops, murmurs, or rubs. Normal PMI, no JVD. No pulse deficits. Respiratory: Lungs have equal breath sounds bilaterally, clear to auscultation and percussion. No rales, rhonchi or wheezes noted. No increased work of breathing, no retractions or nasal flaring. Back: No spinal tenderness. No costovertebral tenderness. Full range of motion. Skin: Warm, dry with normal turgor. Normal color with no rashes, no lesions, and no evidence of cellulitis. MS/ Extremity: Pulses equal, no cyanosis. Neurovascular intact. Full, normal range of motion. Neuro: Awake and alert, GCS 15, oriented to person, place, time, and situation. Cranial nerves II-XII grossly intact. Motor strength 5/5 in all extremities. Sensory grossly intact. Cerebellar exam normal. Normal gait. Psych: Awake, alert, with orientation to person, place and time. Behavior, mood, and affect are within normal limits. 16:24 Abdomen/GI: Inspection: obese Bowel sounds: normal, Palpation: mild abdominal tenderness, in all quadrants. Vital Signs: 13:04 BP 163 / 93; Pulse 85; Resp 18 S; Temp 97.8(TE); Pulse Ox 95% ; Weight 108.86 kg (R); aa5 Height 5 ft. 3 in. (R); 15:38 BP 171 / 94; Pulse 78; Resp 19 S; Pulse Ox 97% on R/A; ll1 16:34 BP 151 / 76; Pulse 66; Resp 16 S; Pulse Ox 97% on R/A; kc6 13:04 Body Mass Index 42.51 (108.86 kg, 160.02 cm) aa5 MDM: 14:00 Patient medically screened. [facility] 14:13 Differential diagnosis: Nonspecific abd pain, gastritis, diverticulitis, viral snw gastroenteritis, gastroenteritis, parasite. Data reviewed: vital signs, nurses notes. 16:25 I considered the following discharge prescriptions or medication management in the [facility] emergency department Medications were administered in the Emergency Department. See MAR. Counseling: I had a detailed discussion with the patient and/or guardian regarding: the historical points, exam findings, and any diagnostic results supporting the discharge/admit diagnosis, the presence of at least one elevated blood pressure reading (>120/80) during this emergency department visit, lab results, the need for outpatient follow up, for definitive care, to return to the emergency department if symptoms worsen or persist or if there are any questions or concerns that arise at home. Response to treatment: the patient's symptoms have mildly improved after treatment, the patient's symptoms have markedly improved after treatment. Special discussion: Based on the patient's Hx, exam, and Dx evaluation, there is no indication for emergent surgery or inpatient Tx. It is understood by the patient/guardian that if the Sx's persist or worsen they need to return immediately for re-evaluation. I have referred the patient to see his PCP for further evaluation of high blood pressure. Based on the history and exam findings, there is no indication for further emergent testing or inpatient evaluation. I discussed with the patient/guardian the need to see the pin or clip fastener for further evaluation of the symptoms. I discussed with the patient/guardian the need to see the primary care provider for further evaluation of the symptoms. 03/03 14:12 Order name: CBC with Diff; Complete Time: 15:19 [facility] 03/03 14:12 Order name: CMP; Complete Time: 15:38 03/03 14:12 Order name: Lipase; Complete Time: 15:38 03/03 14:12 Order name: Urinalysis w/ reflexes; Complete Time: 15:04 [facility] 03/03 14:12 Order name: IV Saline Lock; Complete Time: 15:05 snw 07/26 14:12 Order name: Labs collected and sent; Complete Time: 15:05 snw Administered Medications: 15:05 Drug: NS 0.9% IV 1000 ml Route: IV; Rate: 1 bolus; Site: left antecubital; ll1 17:01 Follow up: Response: No adverse reaction; IV Status: Completed infusion; IV Intake: kc6 1000ml 15:05 Drug: Famotidine IVP 20 mg Route: IVP; Site: left antecubital; ll1 16:03 Follow up: Response: No adverse reaction ll1 15:05 Drug: TORadol - Ketorolac IVP 15 mg Route: IVP; Site: left antecubital; ll1 16:03 Follow up: Response: No adverse reaction; Pain is decreased ll1 15:05 Drug: Promethazine IVP 12.5 mg Route: IVP; Site: left antecubital; ll1 16:04 Follow up: Response: No adverse reaction kc6 15:05 Drug: NS 0.9% IV 250 ml Route: IV; Rate: bolus; Site: left antecubital; ll1 16:04 Follow up: Response: No adverse reaction; IV Status: Completed infusion; IV Intake: kc6 250ml 15:05 Drug: metroNIDAZOLE IVPB 500 mg Volume: 100 ml; Route: IVPB; Rate: 200 ml/hr; Infused ll1 Over: 30 mins; Site: left antecubital; 16:04 Follow up: Response: No adverse reaction; IV Status: Completed infusion; IV Intake: kc6 100ml 17:01 CANCELLED (Physician Discretion; unavailable): Albendazole 200 mg PO once kc6 Disposition Summary: 03/03/23 17:33 Discharge Ordered Location: Home snw Condition: Stable snw Diagnosis - Diarrhea, unspecified snw - Abdominal pain, Generalized snw Followup: snw - With: Emergency Department - When: As needed - Reason: Worsening of condition Followup: snw - With: Private Physician - When: 1 - 2 days - Reason: Recheck today's complaints, Continuance of care, Re-evaluation by your physician Discharge Instructions: - Discharge Summary Sheet snw - Food Choices to Help Relieve Diarrhea, Adult snw - Diarrhea, Adult snw - Diet for Irritable Bowel Syndrome snw - Food Poisoning and Traveling snw - Upper Endoscopy, Adult, Care After snw - Rehydration, Adult snw - Colonoscopy, Adult, Care After snw Forms: - Work release form snw - Medication Reconciliation Form snw - Thank You Letter snw - Antibiotic Education snw - Prescription Opioid Use snw - Patient Portal Instructions snw Prescriptions: - Cipro 500 mg Oral Tablet - take 1 tablet by ORAL route every 12 hours for 7 days; 14 tablet; Refills: 0, snw Product Selection Permitted - Flagyl 500 mg Oral Tablet - take 1 tablet by ORAL route 3 times per day for 7 days; 21 tablet; Refills: 0, snw Product Selection Permitted - promethazine 25 mg Oral Tablet - take 1 tablet by ORAL route every 6 hours As needed; 20 tablet; Refills: 0, snw Product Selection Permitted - dicyclomine 20 mg Oral Tablet - take 1 tablet by ORAL route 3 times per day; 24 tablet; Refills: 0, Product snw Selection Permitted Signatures: Dispatcher [employer] EDMS Mena Carrero FNP-C FAMILY MEDIATOR-Csnw Michelle Fang RN RN aa5 Andie Melo RN RN ll1 Natalie Childers RN RN kc6 Corrections: (The following items were deleted from the chart) 17:01 16:35 Albendazole 200 mg PO once ordered. snw kc6 17:01 17:01 Albendazole 200 mg PO once ordered. kc6 kc6
[2023-03-03 18:44] VITALS: TEMP 97.8
[2023-03-03 18:47] VITALS: O2SAT 97
[2023-03-03 18:48] VITALS: BP 151/76
== END 2023-03-03 17:50 | disposition home or self-care (01) ==
LOC: ER 12:46
DX: R19.7 Diarrhea, unspecified (principal); R10.84 Generalized abdominal pain
CPT/HCPCS: 85025; 81001; 36415; 83690; 80053; J2550; J7050; J7030; 96361; 96365; 96368; 96375; 99284